=== PATIENT | male | born 1940 | race Caucasian/White ===

== ENCOUNTER → 2017-02-01 | Outpatient (CLI) | payer OTHER ==
[~2017-02-01] MED LIST: ADVIN25050; ALBU1NEB10 INH; ALBUAER2 INH; ASPCH81X PO; COEN1CAP37 PO; CRS/10 PO; FOLI1TAB7 PO; LPR25 PO; NITR0.4S UT; THIA100T13 PO
[2017-02-01 18:17] LABS: BASO % 0.4 %; BASO ABS # 0.02 K/uL (0-0.2); COMPLETE YES; EOS % 2.8 %; HEMATOCRIT 40.3 % (42-52); IG% 0.4 %; LYMPH % 30.8 %; LYMPH ABS # 1.75 K/uL (1.2-3.4); MEAN CELL VOLUME 92.6 fL (80-100); MEAN CORPUSCULAR HEMOGLOBIN 31.5 pg (25-34); MEAN PLATELET VOLUME 9.6 fL (7.4-10.4); MONO % 10.2 %; NEUT % 55.4 %; PLATELET COUNT 172 K/uL (130-400); RED BLOOD COUNT 4.35 M/uL (4.7-6.1); WHITE BLOOD COUNT 5.68 K/uL (4.8-10.8)
--- NOTE | 2017-03-04 06:59 | CODING QUERY NO DIAGNOSIS ---
TREATMENT RENDERED WITHOUT A DIAGNOSIS Dr. Capellan, To promote full compliance with coding requirements relating to patient care, physician participation is requested in all cases of metal spray operator uncertainty. Please assist us with providing a diagnosis/symptom for the test(s) below: A diagnosis/symptom was not documented on your Order. A valid diagnosis/symptom is required to bill all insurances. Please remember that we are unable to code a diagnosis of rule out, probable, possible, questionable, or suspected. Tests that require a diagnosis: * CBC W/AUTO DIFF DIAGNOSIS: * SED-RATE DIAGNOSIS: * URIC ACID DIAGNOSIS: DATE OF SERVICE: 02/01/17 Provider Signature: Date: Thank you Ez Iniguez [facility] Information Management Once completed, please kindly fax back to [phone] For questions please call [phone]
== END | disposition home or self-care (01) ==
LOC: C.LAB 17:52
PROVIDERS: ATTEND Podiatrist Foot & Ankle Surgery
DX: M79.661 Pain in right lower leg (principal); M10.071 Idiopathic gout, right ankle and foot; M19.071 Primary osteoarthritis, right ankle and foot; M24.871 Other specific joint derangements of right ankle, not elsewhere classified; M76.899 Other specified enthesopathies of unspecified lower limb, excluding foot

== ENCOUNTER → 2017-04-06 | Outpatient (CLI) | payer OTHER ==
[2017-04-06 12:15] LABS: BASO % 0.1 %; BASO ABS # 0.01 K/uL (0-0.2); COMPLETE YES; HEMATOCRIT 44.6 % (42-52); IG% 0.5 %; LYMPH % 12.3 %; LYMPH ABS # 1.29 K/uL (1.2-3.4); MEAN CELL VOLUME 95.7 fL (80-100); MEAN CORPUSCULAR HEMOGLOBIN 31.3 pg (25-34); MEAN CORPUSCULAR HGB CONC 32.7 g/dl (32-36); MEAN PLATELET VOLUME 10.6 fL (7.4-10.4); MONO % 4.8 %; NEUT % 82.3 %; PLATELET COUNT 181 K/uL (130-400); RED BLOOD COUNT 4.66 M/uL (4.7-6.1); WHITE BLOOD COUNT 10.47 K/uL (4.8-10.8)
[2017-04-06 12:49] LABS: ESTIMATED AVERAGE GLUCOSE 114 mg/dl; HA1C FLAG Normal (Normal)
[2017-04-06 13:15] LABS: ALT/SGPT 24 U/L (12-78); AST/SGOT 14 U/L (15-37); BLOOD UREA NITROGEN 20 mg/dl (7-18); BUN/CREATININE RATIO 16.8 (10-20); CALCIUM 9.1 mg/dl (8.5-10.1); CARBON DIOXIDE 26 mmol/L (21-32); CHLORIDE 109 mmol/L (98-107); GLUCOSE 153 mg/dl (70-99); POTASSIUM 4.4 mmol/L (3.5-5.1); SODIUM 144 mmol/L (136-145)
[2017-04-06 13:21] LABS: ALB/GLOB RATIO 1.4 (0.9-2); ALKALINE PHOSPHATASE 61 U/L (45-117); CHOLESTEROL 118 mg/dl (0-200); CHOLESTEROL/HDL RATIO 2.1; HDL CHOLESTEROL 55 mg/dl; LDL CHOLESTEROL CALCULATED 42 mg/dl; TRIGLYCERIDES 104 mg/dl (0-150); VERY LOW DENSITY LIPOPROT CALC 21 mg/dl
== END | disposition home or self-care (01) ==
LOC: C.LABBFT 08:29
PROVIDERS: ATTEND Internal Medicine
DX: R73.01 Impaired fasting glucose (principal); E78.5 Hyperlipidemia, unspecified; I25.10 Atherosclerotic heart disease of native coronary artery without angina pectoris; Z12.5 Encounter for screening for malignant neoplasm of prostate

== ENCOUNTER → 2017-10-07 | Outpatient (CLI) | payer OTHER ==
[~2017-10-07] MED LIST changes: -FOLI1TAB7 PO; +FOLI1TAB8 PO; -THIA100T13 PO; +THIA100T14 PO
[2017-10-07 12:18] LABS: BASO % 0.3 %; BASO ABS # 0.02 K/uL (0-0.2); COMPLETE YES; EOS % 2.3 %; HEMATOCRIT 41.9 % (42-52); IG% 0.5 %; LYMPH % 18.2 %; MEAN CELL VOLUME 94.4 fL (80-100); MEAN CORPUSCULAR HEMOGLOBIN 32.2 pg (25-34); MEAN CORPUSCULAR HGB CONC 34.1 g/dl (32-36); MEAN PLATELET VOLUME 10.4 fL (7.4-10.4); MONO % 7.4 %; NEUT % 71.3 %; PLATELET COUNT 154 K/uL (130-400); RED BLOOD COUNT 4.44 M/uL (4.7-6.1); WHITE BLOOD COUNT 6.61 K/uL (4.8-10.8)
[2017-10-07 12:28] LABS: ALT/SGPT 22 U/L (12-78); AST/SGOT 13 U/L (15-37); BLOOD UREA NITROGEN 14 mg/dl (7-18); BUN/CREATININE RATIO 11.6 (10-20); CALCIUM 8.5 mg/dl (8.5-10.1); CARBON DIOXIDE 27 mmol/L (21-32); CHLORIDE 109 mmol/L (98-107); CREATININE 1.25 mg/dl (0.60-1.40); GLUCOSE 100 mg/dl (70-99); POTASSIUM 4.2 mmol/L (3.5-5.1); SODIUM 141 mmol/L (136-145)
[2017-10-07 12:30] LABS: ALB/GLOB RATIO 1.3 (0.9-2); ALKALINE PHOSPHATASE 68 U/L (45-117); CHOLESTEROL 99 mg/dl (0-200); CHOLESTEROL/HDL RATIO 2.3; HDL CHOLESTEROL 44 mg/dl; LDL CHOLESTEROL CALCULATED 15 mg/dl; TRIGLYCERIDES 201 mg/dl (0-150); VERY LOW DENSITY LIPOPROT CALC 40 mg/dl
[2017-10-07 12:40] LABS: ESTIMATED AVERAGE GLUCOSE 103 mg/dl; HA1C FLAG Normal (Normal)
== END | disposition home or self-care (01) ==
LOC: C.LABBFT 08:45
PROVIDERS: ATTEND Internal Medicine
DX: I25.10 Atherosclerotic heart disease of native coronary artery without angina pectoris (principal); R73.01 Impaired fasting glucose

== ENCOUNTER 2023-08-10 09:16 | Inpatient (IN) ==
[2023-08-10] MEDS ORDERED: ACETAMINOPHEN 1,000 MG/100 ML VIAL IV STA (09:26)
[2023-08-10] MEDS ORDERED: ALBUT/IPRATROP 3MG/0.5MG NEB 3 ML VIAL NEB STA (09:26)
[2023-08-10] MEDS ORDERED: methylPREDNISolone 125 MG/2 ML VIAL IV STA (09:26)
[2023-08-10] MEDS ORDERED: CEFEPIME 2,000 MG/20 ML VIAL IV STA (09:26)
[2023-08-10] MEDS ORDERED: SODIUM CHLORIDE 0.9% 1,000 ML IV SCH (09:30)
--- NOTE | 2023-08-10 09:35 | Emergency Department Note ---
Impression & Plan Sepsis, Tachycardia, Hypoxia, Leukocytosis, Pneumonia, Elevated troponin, Rhinovirus infection ED Provider Note NAME: FIDEL RAMOS AGE: 83 SEX: M : 1940 ARRIVES VIA: Ambulance INFORMANT: [Patient][nursing] ED PROVIDER(S): [Jesús Diehl MD] CHIEF COMPLAINT: Shortness of breath HISTORY OF PRESENT ILLNESS: The patient is an 83-year-old male who has been sick with flulike symptoms and cough for about a week. The patient admits to some occasional vomiting. Sometimes he vomits from coughing, sometimes he vomits without cough. The patient has felt short of breath and has at times had some chest pain. He does have COPD and has a nebulizer and inhaler that he is using. He is using Tylenol for fever. The patient states that he keeps getting worse and thus, he went to his doctor's office today. His O2 saturation was in the mid 80s, he does not typically wear oxygen. He was sent by ambulance for evaluation. The patient denies sick contacts. He is not sure if he has ever had pneumonia. PMHx/PSHx/Social Hx: See Below PHYSICAL EXAM: GENERAL: Patient is in no acute distress. HEENT: No acute trauma, normocephalic atraumatic, mucous membranes moist, no nasal congestion. NECK: No stridor, no adenopathy, no meningismus, trachea is midline. LUNGS: Clear to auscultation bilaterally, no wheeze, no rhonchi, breath sounds equal. HEART: Tachycardic, regular rhythm, no murmurs. ABDOMEN: Soft, nontender, no peritonitis. EXTREMITIES: No cyanosis, full range of motion of all the joints without pain or difficulty. NEUROLOGIC: Oriented x 3, no acute motor or sensory deficits, no focal weakness. Poor historian. SKIN: No jaundice, no diaphoresis. DIFFERENTIAL DIAGNOSIS: Bronchitis or pneumonia, viral illness, sepsis or bacteremia, anemia, electrolyte imbalance, exacerbation of COPD, among others. EMERGENCY DEPARTMENT PROCEDURES: MEDICAL DECISION MAKING: There is a mild leukocytosis, this would be consistent with infection. A mild anemia was seen. The patient carries a history of anemia. There is a normal platelet count. No coagulopathy. VBG does not show significant acidosis or CO2 retention. No electrolyte abnormality or renal failure. Alk phos was elevated, the total bilirubin was normal. Procalcitonin level was elevated making a bacterial infection more likely. ECG shows a sinus tachycardia, no obvious ischemia. Cardiac enzyme testing x1 is somewhat elevated. This troponin elevation could be secondary to cardiac injury or potentially just mismatch from his hypoxia. Respiratory bio fire was positive for rhinovirus. Chest x-ray does suggest a left base pneumonia. On exam, the patient was tachycardic, hypoxic and febrile. The patient was aggressively managed. He was given a DuoNeb, IV Solu-Medrol, 1.5 L of IV saline. He received IV cefepime as empiric antibiotic coverage. He was given IV Tylenol. Patient has improved since this treatment was provided. The patient does meet criteria for sepsis. The source for his sepsis would be the pneumonia. The patient requires a hospital stay. I spoke with the patient about his findings. The on-call hospitalist was consulted. Prior/Outside records/notes reviewed: Previous wellness visit note. ECG per my interpretation: Indication was shortness of breath. The ECG shows what appears to be a sinus tachycardia with PACs. The rate is 119. There is some nonspecific ST change. There is no ST elevation, no PVCs. The QTc is 469. Continuous Cardiac Monitoring per my interpretation: An order was placed for continuous cardiac monitoring. The monitor shows a rate of 129 with sinus tachycardia. Critical Care Note: I have personally spent 49 minutes of critical care time in the direct management of this patient. This includes bedside care, interpretation of diagnostic studies, and testing, discussion with consultants, patient, and family members, and other required patient management activities. This 49 minutes is in excess of all separately billable procedures. Imaging/x-ray results per my interpretation: Chest x-ray does show a left- sided pneumonia. Chronic Medical/Social conditions affecting care: COPD. Care/Management discussed with: Case management and the on-call hospitalist Level of care consideration(s): After review of the information above and other included data: --requires escalation of care to admission DISPOSITION: Admitted Past Med/Surg History Medical History Asthma stable Barretts esophagus CAD (coronary artery disease) stent to ramus intermedius (2010) Carotid artery disease JONY <50% stenosis, LICA 50-69% stenosis, cardio monitoring COPD (chronic obstructive pulmonary disease) Coronary artery disease Esophageal reflux Herpes simplex History of COVID-19 COVID + 10/04/20 (Rapid antigen [facility]), symptoms at time was only fatig ue which has since resolved History of GI bleed remote Hx of gout Hyperlipidemia Hypertension Myocardial Infarction 2010 Osteoarthritis Sepsis due to pneumonia Surgical History Fusion of spine Cervical History of ankle surgery R ankle 11/2020, repair due to fracture History of cardiac cath stent x1 (2010) History of cataract surgery R/L History of colonoscopy History of esophagogastroduodenoscopy (EGD) History of shoulder surgery Right History of tonsillectomy and adenoidectomy Family History Mother Gastric cancer Grandmother (Maternal) Cancer of unknown origin Grandfather Prostate cancer Other No family history of adverse response to anesthesia Denies family history of Ovarian cancer Myocardial infarction Breast cancer Colorectal cancer Social History Smoking Status: Former smoker Tobacco Type: Cigarettes Age Started Using Tobacco: 13; Age Quit Using Tobacco: 41; packs per day: 3.5; Second Hand Exposure: No; Do You Dip or Chew Tobacco: No; Hx Alcohol Use: Yes Alcohol type: beer Alcohol Intake Frequency: 4 or More x per/Week Alcohol Intake Frequency Comment: 4 beers per day Hx Substance Use: No Preferred Language: Dominican Visual Impairment: Limited Hearing Ability: Normal Pet Groomer Required: No Beliefs That Will Affect Care: None marital status: Current Living Situation: Alone current occupational status: retired 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 [place] Feels Safe at Home: Yes Childhood Exposure to Second-Hand Smoke: Yes Diet: regular caffeine: Yes Dental Care, Regularly: No Physical Activity Frequency: Daily Seatbelt Use: never Sunscreen Use: No Assistive Devices: Crutches Allergies Allergies Allergy/AdvReac Type Severity Reaction Status Date / Time tamsulosin AdvReac Verified 12/17/21 13:52 Home Meds Home Medications Medication Instructions Recorded Confirmed nitroglycerin 0.4 mg sublingual 0.4 mg sublingual UD PRN Chest 06/12/19 08/10/23 tablet Pain #30 tabs thiamine HCl (vitamin B1) 100 mg 100 mg PO QAM #30 tabs 06/12/19 08/10/23 tablet folic acid 1 mg tablet 1 mg PO QAM 04/03/20 08/10/23 cholecalciferol (vitamin D3) 25 1,000 mcg PO HS 11/22/20 08/10/23 mcg (1,000 unit) tablet (Vitamin D3) coQ10 (ubiquinol) 200 mg capsule 200 mg PO QAM 11/22/20 08/10/23 zinc sulfate 50 mg zinc (220 mg) 220 mg PO HS 11/22/20 08/10/23 tablet Eye Drops 1 dose OPR BID 11/25/20 08/10/23 amlodipine 2.5 mg tablet 2.5 mg PO DAILY 08/10/23 08/10/23 aspirin 81 mg tablet,delayed 81 mg PO DAILY 08/10/23 08/10/23 release Previous Rx's Medication Instructions Recorded ipratropium bromide 21 mcg (0.03 1 spray intranasal TID #30 mL 07/14/20 %) nasal spray ipratropium 20 mcg-albuterol 100 1 puff inhalation QID #3 grams 07/16/20 mcg/actuation mist for inhalation (Combivent Respimat) fluticasone 250 mcg-salmeterol 50 1 inh inhalation BID #60 ea 01/23/21 mcg/dose blistr powdr for inhalation (Advair Diskus) alfuzosin 10 mg tablet,extended 10 mg PO DAILY #90 tabs 09/29/21 release 24 hr albuterol sulfate 2.5 mg/3 mL 2.5 mg (3 mL) inhalation QID #180 10/12/21 (0.083 %) solution for nebulization mL metoprolol tartrate 25 mg tablet 25 mg PO BID #180 tabs 10/28/21 omeprazole 20 mg capsule,delayed 40 mg PO BID #360 caps 02/03/22 release mirabegron 50 mg tablet,extended 50 mg PO DAILY #90 tabs 03/02/22 release 24 hr (Myrbetriq) rosuvastatin 10 mg tablet (Crestor) 10 mg PO HS #90 tabs 06/29/22 Results & Data (ED) Vital Signs Vital Signs - 24 hr 08/10/23 09:24 08/10/23 09:26 08/10/23 09:26 Temperature 38.5 C H Temperature Source Oral Pulse Rate 129 H 138 H Pulse Rate [Apical] Pulse Rhythm Regular Pulse Rhythm [Apical] Pulse Strength Normal Pulse Strength [Apical] Respiratory Rate 26 H Respiratory Effort / Characteristics Labored Labored Respiratory Depth Shallow Shallow Respiratory Pattern Tachypnea Tachypnea Blood Pressure 155/76 H Blood Pressure [Right Arm] Blood Pressure Mean 102 Blood Pressure Mean [Right Arm] Blood Pressure Position Lying Pulse Oximetry 86 L Oxygen Delivery Method Room Air Room Air Oxygen Flow Rate Sepsis Recent Fever Within 48 Hours Yes Sepsis New/Unexplained Change in Mental Status No Sepsis Action Taken by Nursing Physician Notified Oxygen Flow Rate - Titration Pulse Oximetry Post Tiitration 08/10/23 09:26 08/10/23 09:26 08/10/23 09:29 Temperature Temperature Source Pulse Rate Pulse Rate [Apical] 138 H Pulse Rhythm Pulse Rhythm [Apical] Regular Pulse Strength Pulse Strength [Apical] Normal Respiratory Rate 26 H Respiratory Effort / Characteristics Labored Respiratory Depth Shallow Respiratory Pattern Tachypnea Blood Pressure Blood Pressure [Right Arm] 155/76 H Blood Pressure Mean Blood Pressure Mean [Right Arm] 102 Blood Pressure Position Pulse Oximetry 86 L 91 Oxygen Delivery Method Room Air Room Air Nasal Cannula Oxygen Flow Rate 4 Sepsis Recent Fever Within 48 Hours Sepsis New/Unexplained Change in Mental Status Sepsis Action Taken by Nursing Oxygen Flow Rate - Titration Pulse Oximetry Post Tiitration 08/10/23 09:40 08/10/23 09:30 08/10/23 10:00 Temperature Temperature Source Pulse Rate 117 H 106 H Pulse Rate [Apical] Pulse Rhythm Pulse Rhythm [Apical] Pulse Strength Pulse Strength [Apical] Respiratory Rate 20 20 Respiratory Effort / Characteristics Respiratory Depth Respiratory Pattern Blood Pressure 145/72 H 145/63 H Blood Pressure [Right Arm] Blood Pressure Mean 96 90 Blood Pressure Mean [Right Arm] Blood Pressure Position Pulse Oximetry 86 L 92 92 Oxygen Delivery Method Nasal Cannula Nasal Cannula Oxygen Flow Rate 0 4 4 Sepsis Recent Fever Within 48 Hours Sepsis New/Unexplained Change in Mental Status Sepsis Action Taken by Nursing Oxygen Flow Rate - Titration 4 Pulse Oximetry Post Tiitration 92 08/10/23 10:30 Temperature Temperature Source Pulse Rate 103 H Pulse Rate [Apical] Pulse Rhythm Pulse Rhythm [Apical] Pulse Strength Pulse Strength [Apical] Respiratory Rate 20 Respiratory Effort / Characteristics Respiratory Depth Respiratory Pattern Blood Pressure 130/58 L Blood Pressure [Right Arm] Blood Pressure Mean 82 Blood Pressure Mean [Right Arm] Blood Pressure Position Pulse Oximetry 93 Oxygen Delivery Method Nasal Cannula Oxygen Flow Rate 4 Sepsis Recent Fever Within 48 Hours Sepsis New/Unexplained Change in Mental Status Sepsis Action Taken by Nursing Oxygen Flow Rate - Titration Pulse Oximetry Post Tiitration Home Medications Current Medication List: was personally reviewed by me Laboratory Data Attestation: I reviewed the patient's lab results. 08/10/23 09:30 08/10/23 09:30 Lab Results 08/10/23 08/10/23 08/10/23 Range/Units 09:30 09:30 09:30 WBC 13.30 H (4.8-10.8) K/ul RBC 4.15 L (4.70-6.10) M/uL Hgb 12.7 L (14.0-18.0) g/dl Hct 38.4 L (42.0-52.0) % MCV 92.5 (80.0-100.0) fL MCH 30.6 (25.0-34.0) pg MCHC 33.1 (32.0-36.0) g/dL RDW Std Deviation 41.1 (36.4-46.3) fL RDW Coeff of Hiral 12.0 (11.5-14.5) % Plt Count 234 (130-400) K/uL MPV 9.9 (9.4-12.4) fL Immature Gran % (Auto) 1.3 % Neut % (Auto) 88.9 % Lymph % (Auto) 3.1 % Butler % (Auto) 6.2 % Eos % (Auto) 0.3 % Baso % (Auto) 0.2 % Neut # (Auto) 11.83 H (1.40-6.50) K/uL Lymph # (Auto) 0.41 L (1.20-3.40) K/uL Butler # (Auto) 0.82 H (0.11-0.59) K/uL Eos # (Auto) 0.04 (0.00-0.50) K/uL Baso # (Auto) 0.03 (0.00-0.20) K/uL Immature Gran # (Auto) 0.17 (0.01-0.20) K/uL PT 11.7 (9.0-12.0) Seconds INR 1.1 (0.9-1.1) APTT 27.6 (21.0-31.0) Seconds PTT Ratio 1.0 VBG pH (7.36-7.41) VBG pCO2 (38-50) mmHg VBG pO2 mmHg VBG HCO3 mmol/L VBG O2 Saturation % VBG Base Excess mEq/L Sodium 136 (136-145) mmol/L Potassium 4.0 (3.5-5.1) mmol/L Chloride 100 (98-107) mmol/L Carbon Dioxide 24 (21-32) mmol/L Anion Gap 12 H (3-11) BUN 16 (6-23) mg/dl Creatinine 1.25 (0.6-1.4) mg/dl Est Cr Clr Drug Dosing 46.1 ml/min Est GFR ( Amer) 61.8 ml/min Est GFR (Non-Af Amer) 53.3 ml/min BUN/Creatinine Ratio 12.8 (10-20) Glucose 118 H (70-99(Fasting)) mg/dl Lactate (0.4-2.0) mmol/L Calcium 9.8 (8.6-10.3) mg/dl Magnesium 2.2 (1.7-2.4) mg/dl Total Bilirubin 0.6 (0.2-1.0) mg/dl Direct Bilirubin 0.3 H (0-0.2) mg/dl AST 35 (13-39) U/L ALT 47 (7-52) U/L Alkaline Phosphatase 362 H (34-104) U/L Troponin I High Sens 33.1 H (0-20) pg/ml Total Protein 7.0 (6.0-8.3) gm/dl Albumin 3.7 (3.4-5.0) gm/dl Procalcitonin (0-0.5) ng/ml Adenovirus (PCR) (NotDetected) B. pertussis DNA (PCR) (NotDetected) B.parapertussis DNA PCR (NotDetected) C. pneumoniae DNA (PCR) (NotDetected) Coronavirus OC43 (PCR) (NotDetected) Coronavirus HKU1 (PCR) (NotDetected) Coronavirus 229E (PCR) (NotDetected) SARS-CoV-2 (PCR) (NotDetected) Coronavirus NL63 (PCR) (NotDetected) Human Metapneumovir PCR (NotDetected) Influenza Type A (PCR) (NotDetected) Influenza Type B (PCR) (NotDetected) M. pneumoniae (PCR) (NotDetected) Parainfluenza 1 (PCR) (NotDetected) Parainfluenza 2 (PCR) (NotDetected) Parainfluenza 3 (PCR) (NotDetected) Parainfluenza 4 (PCR) (NotDetected) RSV (PCR) (NotDetected) Entero/Rhino (PCR) (NotDetected) 08/10/23 08/10/23 08/10/23 Range/Units 09:30 09:42 09:42 WBC (4.8-10.8) K/ul RBC (4.70-6.10) M/uL Hgb (14.0-18.0) g/dl Hct (42.0-52.0) % MCV (80.0-100.0) fL MCH (25.0-34.0) pg MCHC (32.0-36.0) g/dL RDW Std Deviation (36.4-46.3) fL RDW Coeff of Hiral (11.5-14.5) % Plt Count (130-400) K/uL MPV (9.4-12.4) fL Immature Gran % (Auto) % Neut % (Auto) % Lymph % (Auto) % Butler % (Auto) % Eos % (Auto) % Baso % (Auto) % Neut # (Auto) (1.40-6.50) K/uL Lymph # (Auto) (1.20-3.40) K/uL Butler # (Auto) (0.11-0.59) K/uL Eos # (Auto) (0.00-0.50) K/uL Baso # (Auto) (0.00-0.20) K/uL Immature Gran # (Auto) (0.01-0.20) K/uL PT (9.0-12.0) Seconds INR (0.9-1.1) APTT (21.0-31.0) Seconds PTT Ratio VBG pH 7.43 H (7.36-7.41) VBG pCO2 38 (38-50) mmHg VBG pO2 29 mmHg VBG HCO3 25 mmol/L VBG O2 Saturation < 60.0 % VBG Base Excess 1.0 mEq/L Sodium (136-145) mmol/L Potassium (3.5-5.1) mmol/L Chloride (98-107) mmol/L Carbon Dioxide (21-32) mmol/L Anion Gap (3-11) BUN (6-23) mg/dl Creatinine (0.6-1.4) mg/dl Est Cr Clr Drug Dosing ml/min Est GFR ( Amer) ml/min Est GFR (Non-Af Amer) ml/min BUN/Creatinine Ratio (10-20) Glucose (70-99(Fasting)) mg/dl Lactate 1.6 (0.4-2.0) mmol/L Calcium (8.6-10.3) mg/dl Magnesium (1.7-2.4) mg/dl Total Bilirubin (0.2-1.0) mg/dl Direct Bilirubin (0-0.2) mg/dl AST (13-39) U/L ALT (7-52) U/L Alkaline Phosphatase (34-104) U/L Troponin I High Sens (0-20) pg/ml Total Protein (6.0-8.3) gm/dl Albumin (3.4-5.0) gm/dl Procalcitonin 0.60 H (0-0.5) ng/ml Adenovirus (PCR) (NotDetected) B. pertussis DNA (PCR) (NotDetected) B.parapertussis DNA PCR (NotDetected) C. pneumoniae DNA (PCR) (NotDetected) Coronavirus OC43 (PCR) (NotDetected) Coronavirus HKU1 (PCR) (NotDetected) Coronavirus 229E (PCR) (NotDetected) SARS-CoV-2 (PCR) (NotDetected) Coronavirus NL63 (PCR) (NotDetected) Human Metapneumovir PCR (NotDetected) Influenza Type A (PCR) (NotDetected) Influenza Type B (PCR) (NotDetected) M. pneumoniae (PCR) (NotDetected) Parainfluenza 1 (PCR) (NotDetected) Parainfluenza 2 (PCR) (NotDetected) Parainfluenza 3 (PCR) (NotDetected) Parainfluenza 4 (PCR) (NotDetected) RSV (PCR) (NotDetected) Entero/Rhino (PCR) (NotDetected) 08/10/23 Range/Units 09:57 WBC (4.8-10.8) K/ul RBC (4.70-6.10) M/uL Hgb (14.0-18.0) g/dl Hct (42.0-52.0) % MCV (80.0-100.0) fL MCH (25.0-34.0) pg MCHC (32.0-36.0) g/dL RDW Std Deviation (36.4-46.3) fL RDW Coeff of Hiral (11.5-14.5) % Plt Count (130-400) K/uL MPV (9.4-12.4) fL Immature Gran % (Auto) % Neut % (Auto) % Lymph % (Auto) % Butler % (Auto) % Eos % (Auto) % Baso % (Auto) % Neut # (Auto) (1.40-6.50) K/uL Lymph # (Auto) (1.20-3.40) K/uL Butler # (Auto) (0.11-0.59) K/uL Eos # (Auto) (0.00-0.50) K/uL Baso # (Auto) (0.00-0.20) K/uL Immature Gran # (Auto) (0.01-0.20) K/uL PT (9.0-12.0) Seconds INR (0.9-1.1) APTT (21.0-31.0) Seconds PTT Ratio VBG pH (7.36-7.41) VBG pCO2 (38-50) mmHg VBG pO2 mmHg VBG HCO3 mmol/L VBG O2 Saturation % VBG Base Excess mEq/L Sodium (136-145) mmol/L Potassium (3.5-5.1) mmol/L Chloride (98-107) mmol/L Carbon Dioxide (21-32) mmol/L Anion Gap (3-11) BUN (6-23) mg/dl Creatinine (0.6-1.4) mg/dl Est Cr Clr Drug Dosing ml/min Est GFR ( Amer) ml/min Est GFR (Non-Af Amer) ml/min BUN/Creatinine Ratio (10-20) Glucose (70-99(Fasting)) mg/dl Lactate (0.4-2.0) mmol/L Calcium (8.6-10.3) mg/dl Magnesium (1.7-2.4) mg/dl Total Bilirubin (0.2-1.0) mg/dl Direct Bilirubin (0-0.2) mg/dl AST (13-39) U/L ALT (7-52) U/L Alkaline Phosphatase (34-104) U/L Troponin I High Sens (0-20) pg/ml Total Protein (6.0-8.3) gm/dl Albumin (3.4-5.0) gm/dl Procalcitonin (0-0.5) ng/ml Adenovirus (PCR) Not Detected (NotDetected) B. pertussis DNA (PCR) Not Detected (NotDetected) B.parapertussis DNA PCR Not Detected (NotDetected) C. pneumoniae DNA (PCR) Not Detected (NotDetected) Coronavirus OC43 (PCR) Not Detected (NotDetected) Coronavirus HKU1 (PCR) Not Detected (NotDetected) Coronavirus 229E (PCR) Not Detected (NotDetected) SARS-CoV-2 (PCR) Not Detected (NotDetected) Coronavirus NL63 (PCR) Not Detected (NotDetected) Human Metapneumovir PCR Not Detected (NotDetected) Influenza Type A (PCR) Not Detected (NotDetected) Influenza Type B (PCR) Not Detected (NotDetected) M. pneumoniae (PCR) Not Detected (NotDetected) Parainfluenza 1 (PCR) Not Detected (NotDetected) Parainfluenza 2 (PCR) Not Detected (NotDetected) Parainfluenza 3 (PCR) Not Detected (NotDetected) Parainfluenza 4 (PCR) Not Detected (NotDetected) RSV (PCR) Not Detected (NotDetected) Entero/Rhino (PCR) DETECTED A* (NotDetected) Administered Medications Albuterol (Albut/Ipratrop 3mg/0.5mg Neb 3 Ml Vial) 3 ml NEB QIDR RESHMA; Protocol Stop: 09/09/23 10:59 Last Admin: 08/10/23 12:07 Dose: 3 ml Documented By: MORRIS Azithromycin 500 mg/ Dextrose 255 mls @ 127.5 mls/hr IV Q24H RESHMA Stop: 08/17/23 11:29 Last Admin: 08/10/23 12:27 Dose: 127.5 mls/hr Documented By: JEMMA Discontinued Medications Albuterol (Albut/Ipratrop 3mg/0.5mg Neb 3 Ml Vial) 3 ml NEB NOW STA; Protocol Stop: 08/10/23 09:27 Last Admin: 08/10/23 09:48 Dose: 3 ml Documented By: JEMMA Sodium Chloride (Nss) 1,000 mls @ 999 mls/hr IV .Q1H1M RESHMA Stop: 08/10/23 10:30 Last Infusion: 08/10/23 11:06 Dose: 0 mls/hr Documented By: Admin: 08/10/23 09:55 Dose: 999 mls/hr Documented By: JEMMA Cefepime HCl (Maxipime) 2,000 mg in 20 mls @ 5 mls/min IV NOW STA; Protocol Stop: 08/10/23 09:29 Last Admin: 08/10/23 10:20 Dose: 5 mls/min Documented By: JEMMA Acetaminophen (Ofirmev) 1,000 mg in 100 mls @ 400 mls/hr IV NOW STA Stop: 08/10/23 09:40 Last Infusion: 08/10/23 10:37 Dose: 0 mls/hr Documented By: Admin: 08/10/23 09:54 Dose: 400 mls/hr Documented By: JEMMA Sodium Chloride (Nss) 500 mls @ 999 mls/hr IV .Q31M ONE Stop: 08/10/23 10:47 Last Infusion: 08/10/23 12:18 Dose: 0 mls/hr Documented By: Admin: 08/10/23 10:49 Dose: 999 mls/hr Documented By: JEMMA Methylprednisolone (Methylprednisolone 125 Mg/2 Ml Vial) 60 mg IV NOW STA Stop: 08/10/23 09:27 Last Admin: 08/10/23 09:54 Dose: 60 mg Documented By: JEMMA Imaging Data Radiologist's Impression: Chest X-Ray 08/10/23 09:26 XR chest 1V portable HISTORY: 83 years-old Male Sepsis acute sepsis COMPARISON: 04/03/2020 TECHNIQUE: AP view of the chest FINDINGS: Cardiac silhouette is enlarged. Mild interstitial coarsening of the lung bases. No pneumothorax, pleural effusion or overt pulmonary edema. Degenerative changes of the shoulders and spine. Surgical clips within the neck soft tissues. Cervical spinal fusion hardware. IMPRESSION: Mild interstitial coarsening of the lung bases, left greater than right has progressed from prior. Findings likely represent atelectasis versus scarring. A mild nonspecific pneumonitis could appear similarly. ACT 112: Negative or not required by law. The above report was generated using voice recognition software. It may contain grammatical, syntax or spelling errors. Electronically signed by: Dougie Keenan M.D. 08/10/2023 9:56 AM Discharge Plan Visit Data Chief Complaint: Shortness of Breath/Dyspnea ED Provider: Jesús Diehl Discharge Problem: Sepsis, Tachycardia, Hypoxia, Leukocytosis, Pneumonia, Elevated troponin, Rhinovirus infection Patient Disposition: Admitted As Inpatient Condition: Fair Discharge Instructions Interventions: ED Discharge Assessment Last Done: 08/10/23 11:58
[2023-08-10 09:52] LABS: HCO3 VBG 25 mmol/L; Oxygen Saturation VBG < 60.0 %; PCO2 VBG 38 mmHg (38-50); PO2 VBG 29 mmHg; pH VBG 7.43 (7.36-7.41)
--- NOTE | 2023-08-10 09:57 | XRay Report ---
XR chest 1V portable HISTORY: 83 years-old Male Sepsis acute sepsis COMPARISON: 04/03/2020 TECHNIQUE: AP view of the chest FINDINGS: Cardiac silhouette is enlarged. Mild interstitial coarsening of the lung bases. No pneumothorax, pleu ral effusion or overt pulmonary edema. Degenerative changes of the shoulders and spine. Surgical clip s within the neck soft tissues. Cervical spinal fusion hardware. IMPRESSION: Mild interstitial coarsening of the lung bases, left greater than right has progressed fr om prior. Findings likely represent atelectasis versus scarring. A mild nonspecific pneumonitis could appear similarly. ACT 112: Negative or not required by law. The above report was generated using voice recognition software. It may contain grammatical, syntax o r spelling errors. Electronically signed by: Dougie Keenan M.D. 08/10/2023 9:56 AM
[2023-08-10 10:05] LABS: Basophils # (auto) 0.03 K/uL (0.00-0.20); Basophils % (auto) 0.2 %; Eosinophils # (auto) 0.04 K/uL (0.00-0.50); Eosinophils % (auto) 0.3 %; Hematocrit (blood only) 38.4 % (42.0-52.0); Hemoglobin 12.7 g/dl (14.0-18.0); Immature Granulocytes # (auto) 0.17 K/uL (0.01-0.20); Immature Granulocytes % (auto) 1.3 %; Lymphocytes # (auto) 0.41 K/uL (1.20-3.40); Lymphocytes % (auto) 3.1 %; Mean Corpuscular Hemoglobin 30.6 pg (25.0-34.0); Mean Corpuscular Hgb Conc 33.1 g/dL (32.0-36.0); Mean Corpuscular Volume 92.5 fL (80.0-100.0); Mean Platelet Volume 9.9 fL (9.4-12.4); Monocytes # (auto) 0.82 K/uL (0.11-0.59); Monocytes % (auto) 6.2 %; Neutrophils # (auto) 11.83 K/uL (1.40-6.50); Neutrophils % (auto) 88.9 %; Platelet Count 234 K/uL (130-400); RDW Standard Deviation 41.1 fL (36.4-46.3); Red Blood Count 4.15 M/uL (4.70-6.10)
[2023-08-10 10:15] LABS: Albumin Level 3.7 gm/dl (3.4-5.0); BUN Creatinine Ratio 12.8 (10-20); Bilirubin Direct 0.3 mg/dl (0-0.2); Bilirubin,Total 0.6 mg/dl (0.2-1.0); Calcium 9.8 mg/dl (8.6-10.3); Creatinine Clr Calc Pharmacy 46.1 ml/min; Est GFR (African American) 61.8 ml/min; Est GFR (Non-African American) 53.3 ml/min; Magnesium 2.2 mg/dl (1.7-2.4)
[2023-08-10] MEDS ORDERED: SODIUM CHLORIDE 0.9% 500 ML IV ONE (10:17)
[2023-08-10 10:21] LABS: Troponin I High Sensitivity 33.1 pg/ml (0-20)
[2023-08-10 10:45] LABS: INR 1.1 (0.9-1.1); Partial Thromboplastin Time 27.6 Seconds (21.0-31.0); Prothrombin Time 11.7 Seconds (9.0-12.0)
[2023-08-10] MEDS ORDERED: MAGNESIUM HYDROXIDE SUSP 30 ML UDC PO PRN (10:47)
[2023-08-10] MEDS ORDERED: ONDANSETRON INJ 2 MG/ML 2 ML VIAL IV PRN (10:47)
[2023-08-10] MEDS ORDERED: ALUMINUM/MAGNESIUM SUSP 30 ML UDC PO PRN (10:47)
[2023-08-10] MEDS ORDERED: ACETAMINOPHEN 325 MG TAB PO PRN (10:47)
[2023-08-10] MEDS ORDERED: POLYETHYLENE (MIRALAX) 17 GM PACK PO PRN (10:47)
--- NOTE | 2023-08-10 10:53 | History & Physical Report ---
Date of Service August 10, 2023 Assessment & Plan (1) Sepsis due to pneumonia: (2) Hypertension: (3) CAD (coronary artery disease): (4) COPD (chronic obstructive pulmonary disease): Plan Mr. Ballesteros is an 83 year old male with a PMH that includes: COPD ( no supplemental O2 use), HTN, CAD, HLD, HLD and alcohol use; that presents to the ED with SOB and persistent productive cough and fevers, along with feeling weaker than usual that have been occurring over the past week. He went to [facility] this morning and was hypoxic and advised to come to the ED. CXR indicates left sided PNA and he would meet sepsis criteria as he was initially tachycardic and tachypnic. Upon arrival, he received Solumedrol, 1 LNSB, and Cefepime. Leukocytosis; 13.30, lactate normal 1.6, Initial Troponin 33.1; suspect ischemic demand rather than ACS. Ultimately, 83 year old male with history of COPD presents with SOB and PNA, meeting sepsis criteria. Will treat with IV Ceftriaxone + Azithromycin and adjust based on sputum and blood culture results; Supportive treatment with O2 and goal to wean O2 prior to discharge with Mucinex, Tessalon Pearles, and flutter valve. Will add AWSS protocol due to alcohol use for possible withdrawl effects. Sepsis Pneumonia: Acute uncontrolled 4LNC SpO2 90% CXR: Mild interstitial coarsening of the lung bases, left greater than right has progressed from prior. Findings likely represent atelectasis versus scarring. Leukocytosis: WBC 13.30 Lactate normal 1.6 Initial Troponin 33.1; will trend x1 do not suspect ACS rather ischemic demand VBG compensated Procalcitonin 0.60 Biofire pending Received 1LNSB in ED Solumedrol 60 mg x 1 given in ED Cefepime given in ED; adjust to Ceftriaxone + Azithromycin and adjust further based on sputum and blood cultures Add Mucinex PO BID, Tessalon Pearles PRN and Flutter Valve. COPD: chronic stable Takes Fluticasone, Atrovent and Albuterol No supplemental O2 at baseline HTN: chronic stable Takes Metoprolol and Amlodipine; continue HLD: Chronic stable takes Rosuvastatin; continue denies muscle cramps Last Lipid panel 07/01/23: LDL 40, HDL 56, TG 151 CAD: Chronic Stable 2010: Stent to JONY Takes Baby ASA; continue Initial Troponin 33.1; will trend x1 do not suspect ACS rather ischemic demand Qtc normal on ECG CKD: Chronic stable Baseline Creatinine 1.2; today 1.25 Alcohol use: chronic stable Reports drinking three beers per day and a shot of whiskey when he is not feeling well. Takes Thiamine and Folic Acid; continue Add AWSS scale for Ativan PRN; no gabapentin necessary for now Not tremulous on examination GERD: chronic stable Takes omeprazole; continue Disposition: PCP: Dr. Pabon Code Status: Full Code VTE Prophylaxis: Lovenox SQ I spent a total of 88 minutes coordinating, documenting, and providing care for this patient excluding time spent in the performance of separately billed services. All of the aforementioned completed while collaborating with the assigned attending physician for a full treatment plan. Please see their addendum for further details. History of Present Illness Chief Complaint: Shortness of Breath Primary Care Provider: Robert Pabon MD Mr. Ballesteros is an 83 year old male with a PMH that includes: COPD ( no supplemental O2 use), HTN, CAD, HLD, HLD and alcohol use; that presents to the ED with SOB and persistent productive cough and fevers, along with feeling weaker than usual that have been occurring over the past week. He went to [facility] this morning and was hypoxic and advised to come to the ED. CXR indicates left sided PNA and he would meet sepsis criteria as he was initially tachycardic and tachypnic. Upon arrival, he received Solumedrol, 1 LNSB, and Cefepime. Leukocytosis; 13.30, lactate normal 1.6, Initial Troponin 33.1; suspect ischemic demand rather than ACS. Pt denies tobacco use or recreational drug use. Reports drinking three beers per day and a shot of whiskey when he is not feeling well. 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 Pt denies DECKER, dizziness, chest pain, palpitations, abdominal pain, tenderness, recent falls or trauma. Pt lying on his left side upon examination and was not in any apparent distress. He was AAOx3 and able to answer questions appropriately. He did say that he was feeling 'wiped out'. Ultimately, 83 year old male with history of COPD presents with SOB and PNA, meeting sepsis criteria. Will treat with IV Ceftriaxone + Azithromycin and adjust based on sputum and blood culture results; Supportive treatment with O2 and goal to wean O2 prior to discharge with Mucinex, Tessalon Pearles, and flutter valve. Patient will be admitted for further evaluation and management. Please see A/P for further details. Allergies Allergy/AdvReac Type Severity Reaction Status Date / Time tamsulosin AdvReac Verified 12/17/21 13:52 Home Medications Medication Instructions Recorded Confirmed Type nitroglycerin 0.4 mg sublingual 0.4 mg sublingual UD PRN Chest 06/12/19 08/10/23 History tablet Pain #30 tabs thiamine HCl (vitamin B1) 100 mg 100 mg PO QAM #30 tabs 06/12/19 08/10/23 History tablet folic acid 1 mg tablet 1 mg PO QAM 04/03/20 08/10/23 History ipratropium bromide 21 mcg (0.03 1 spray intranasal TID #30 mL 07/14/20 08/10/23 Rx %) nasal spray ipratropium 20 mcg-albuterol 100 1 puff inhalation QID #3 grams 07/16/20 08/10/23 Rx mcg/actuation mist for inhalation (Combivent Respimat) cholecalciferol (vitamin D3) 25 1,000 mcg PO HS 11/22/20 08/10/23 History mcg (1,000 unit) tablet (Vitamin D3) coQ10 (ubiquinol) 200 mg capsule 200 mg PO QAM 11/22/20 08/10/23 History zinc sulfate 50 mg zinc (220 mg) 220 mg PO HS 11/22/20 08/10/23 History tablet Eye Drops 1 dose OPR BID 11/25/20 08/10/23 History fluticasone 250 mcg-salmeterol 50 1 inh inhalation BID #60 ea 01/23/21 08/10/23 Rx mcg/dose blistr powdr for inhalation (Advair Diskus) alfuzosin 10 mg tablet,extended 10 mg PO DAILY #90 tabs 09/29/21 08/10/23 Rx release 24 hr albuterol sulfate 2.5 mg/3 mL 2.5 mg (3 mL) inhalation QID #180 10/12/21 08/10/23 Rx (0.083 %) solution for nebulization mL metoprolol tartrate 25 mg tablet 25 mg PO BID #180 tabs 10/28/21 08/10/23 Rx omeprazole 20 mg capsule,delayed 40 mg PO BID #360 caps 02/03/22 08/10/23 Rx release mirabegron 50 mg tablet,extended 50 mg PO DAILY #90 tabs 03/02/22 08/10/23 Rx release 24 hr (Myrbetriq) rosuvastatin 10 mg tablet (Crestor) 10 mg PO HS #90 tabs 06/29/22 08/10/23 Rx amlodipine 2.5 mg tablet 2.5 mg PO DAILY 08/10/23 08/10/23 History aspirin 81 mg tablet,delayed 81 mg PO DAILY 08/10/23 08/10/23 History release Past Med/Surg History Medical History Asthma stable Barretts esophagus CAD (coronary artery disease) stent to ramus intermedius (2010) Carotid artery disease JNOY <50% stenosis, LICA 50-69% stenosis, cardio monitoring COPD (chronic obstructive pulmonary disease) Coronary artery disease Esophageal reflux Herpes simplex History of COVID-19 COVID + 10/04/20 (Rapid antigen [facility]), symptoms at time was only fatigue which has since resolved History of GI bleed remote Hx of gout Hyperlipidemia Hypertension Myocardial Infarction 2010 Osteoarthritis Sepsis due to pneumonia Surgical History Fusion of spine Cervical History of ankle surgery R ankle 11/2020, repair due to fracture History of cardiac cath stent x1 (2010) History of cataract surgery R/L History of colonoscopy History of esophagogastroduodenoscopy (EGD) History of shoulder surgery Right History of tonsillectomy and adenoidectomy Family History Mother Gastric cancer Grandmother (Maternal) Cancer of unknown origin Grandfather Prostate cancer Other No family history of adverse response to anesthesia Denies family history of Ovarian cancer Myocardial infarction Breast cancer Colorectal cancer Social History Smoking Status: Former smoker Tobacco Type: Cigarettes Age Started Using Tobacco: 13; Age Quit Using Tobacco: 41; packs per day: 3.5; Second Hand Exposure: No; Do You Dip or Chew Tobacco: No; Hx Alcohol Use: Yes Alcohol type: beer Alcohol Intake Frequency: 4 or More x per/Week Alcohol Intake Frequency Comment: 4 beers per day Hx Substance Use: No Preferred Language: [place] Visual Impairment: Limited Hearing Ability: Normal Systems Administrator Required: No Beliefs That Will Affect Care: None marital status: Current Living Situation: Alone current occupational status: retired 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 Stern's physical examination for further findings Results & Data Results & Data Vital Signs (Past 12 Hours) Vital Signs Temp Pulse Pulse Resp BP BP Pulse Ox 08/10/23 10:47 37.4 C 08/10/23 10:30 103 H 20 130/58 L 93 08/10/23 10:00 106 H 20 145/63 H 92 08/10/23 09:30 117 H 20 145/72 H 92 08/10/23 09:40 86 L 08/10/23 09:29 91 08/10/23 09:26 138 H 26 H 155/76 H 86 L 08/10/23 09:26 08/10/23 09:26 38.5 C H 138 H 26 H 155/76 H 86 L 08/10/23 09:26 08/10/23 09:24 129 H O2 Del Method O2 Flow Rate 08/10/23 10:47 08/10/23 10:30 Nasal Cannula 4 08/10/23 10:00 Nasal Cannula 4 08/10/23 09:30 Nasal Cannula 4 08/10/23 09:40 0 08/10/23 09:29 Nasal Cannula 4 08/10/23 09:26 Room Air 08/10/23 09:26 Room Air 08/10/23 09:26 Room Air 08/10/23 09:26 Room Air 08/10/23 09:24 Laboratory Results Short CBC 08/10/23 Range/Units 09:30 WBC 13.30 H (4.8-10.8) K/ul Hgb 12.7 L (14.0-18.0) g/dl Hct 38.4 L (42.0-52.0) % Plt Count 234 (130-400) K/uL BMP 08/10/23 09:30 Sodium 136 Potassium 4.0 Chloride 100 Carbon Dioxide 24 BUN 16 Creatinine 1.25 Glucose 118 H Calcium 9.8 Liver Function 08/10/23 Range/Units 09:30 Total Bilirubin 0.6 (0.2-1.0) mg/dl Direct Bilirubin 0.3 H (0-0.2) mg/dl AST 35 (13-39) U/L ALT 47 (7-52) U/L Alkaline Phosphatase 362 H (34-104) U/L Albumin 3.7 (3.4-5.0) gm/dl Diagnostic Findings Chest X-Ray 08/10/23 09:26 XR chest 1V portable HISTORY: 83 years-old Male Sepsis acute sepsis COMPARISON: 04/03/2020 TECHNIQUE: AP view of the chest FINDINGS: Cardiac silhouette is enlarged. Mild interstitial coarsening of the lung bases. No pneumothorax, pleural effusion or overt pulmonary edema. Degenerative changes of the shoulders and spine. Surgical clips within the neck soft tissues. Cervical spinal fusion hardware. IMPRESSION: Mild interstitial coarsening of the lung bases, left greater than right has progressed from prior. Findings likely represent atelectasis versus scarring. A mild nonspecific pneumonitis could appear similarly. ACT 112: Negative or not required by law. The above report was generated using voice recognition software. It may contain grammatical, syntax or spelling errors. Electronically signed by: Dougie Keenan M.D. 08/10/2023 9:56 AM Code Status & VTE Plan VTE Prophylaxis Plan VTE Prophylaxis will be ordered: Yes Supervising Physician Co-Signing Physician Notes 83 year old man with a PMH that includes COPD/asthma without home oxygen use, HTN, CAD, HLD, HLD and alcohol use presents to ER with SOB and persistent productive cough for the past week. Also reported anorexia, nausea, vomiting, sore throat, chest congestion. Reports chest pain with cough On exam, General: Ill appearing man, in no distress Eyes: PERRL, conjunctivae normal, not pale, anicteric sclerae, EOM intact bilaterally ENMT: External ear and nose normal, oropharynx normal Respiratory: Normal respiratory effort, no respiratory distress, lungs clear to auscultation, no crackles. On nasal cannula Cardiovascular: Tachycardic, regular rhythm, S1 S2 Gastrointestinal (Abdomen): Abdomen is not distended, soft, non-tender to palpation, no guarding, no palpable hepatosplenomegaly, normal bowel sounds Musculoskeletal: No pedal edema Neurologic: Alert and oriented x 3, No focal weakness, sensation grossly intact Psychiatric: Euthymic affect Sepsis Met SIRS criteria with fever, tachycardia, tachypnea, leukocytosis Pneumonia Got cefepime in ER Will do ceftriaxone and azithromycin Trop is mildly elevated. Likely demand ischemia. Trend Wean oxygen as tolerated Antitussives Reports daily alcohol use. [facility] protocol
[2023-08-10 11:02] LABS: Adenovirus PCR Not Detected (NotDetected); Bordetella parapertussis PCR Not Detected (NotDetected); Bordetella pertussis PCR Not Detected (NotDetected); Chlamydia pneumoniae PCR Not Detected (NotDetected); Coronavirus 229E PCR Not Detected (NotDetected); Coronavirus CoV-2 (COVID19)PCR Not Detected (NotDetected); Coronavirus HKU1 PCR Not Detected (NotDetected); Coronavirus NL63 PCR Not Detected (NotDetected); Coronavirus OC43PCR Not Detected (NotDetected); Human Metapneumovirus PCR Not Detected (NotDetected); Influenza A PCR Not Detected (NotDetected); Influenza B PCR Not Detected (NotDetected); Mycoplasma pneumoniae PCR Not Detected (NotDetected); Parainfluenza Virus 1 PCR Not Detected (NotDetected); Parainfluenza Virus 2 PCR Not Detected (NotDetected); Parainfluenza Virus 3 PCR Not Detected (NotDetected); Parainfluenza Virus 4 PCR Not Detected (NotDetected); Respiratory Syncytial VirusPCR Not Detected (NotDetected)
[2023-08-10 11:26] LABS: Rhinovirus/Enterovirus PCR DETECTED (NotDetected)
[2023-08-10] MEDS ORDERED: LORazepam 2 MG/1 ML VIAL IV PRN (11:43)
[2023-08-10] MEDS ORDERED: ARTIFICIAL TEARS OP PRN (11:51)
[2023-08-10] MEDS: ALBUT/IPRATROP 3MG/0.5MG NEB 3 ML VIAL NEB SCH ×3 (12:07→19:25)
[2023-08-10 12:17] LABS: Magnesium 2.1 mg/dl (1.7-2.4)
[2023-08-10] MEDS: AZITHROMYCIN 500 MG in DEXTROSE 5% 250 ML IV SCH (12:27)
[2023-08-10 12:28] LABS: Troponin I High Sensitivity 31.7 pg/ml (0-20)
[2023-08-10] MEDS ORDERED: IPRATROPIUM BROMIDE/ALBUTEROL respimat INH INH SCH (13:00)
[2023-08-10] MEDS ORDERED: Ipratropium HFA Inhaler (Combivent Respimat P&T Subs) INH SCH (15:00)
[2023-08-10] MEDS ORDERED: Albuterol HFA 8 GM Inhaler (Combivent Respimat P&T Subs) INH SCH (15:00)
[2023-08-10 15:13] LABS: Appearance Urine Clear (Clear); Bacteria Urine Automated Negative (Negative); Bilirubin Urine Negative (Negative); Blood Urine Negative (Negative); Color Urine Yellow; Glucose Urine UA Negative (Negative); Ketones Urine 2+ (Negative); Leukocyte Esterase Urine Negative (Negative); Nitrite Urine Negative (Negative); Protein Urine 1+ (Negative); RBC Urine Automated 0-4 /hpf (0-4); Specific Gravity Urine 1.017 (1.000-1.030); Urobilinogen Urine Negative (Negative)
[2023-08-10] MEDS ORDERED: cefTRIAXone SODIUM 2,000 MG in DEXTROSE 5 % MINI-B 50 ML IV SCH (17:00)
[2023-08-10] MEDS: PANTOprazole 40 MG TAB PO SCH (20:51)
[2023-08-10] MEDS: CHOLECALCIFEROL 1,000 UNITS 25 MCG TAB PO SCH (20:51)
[2023-08-10] MEDS: IPRATROPIUM BROMIDE NASAL SPRAY 0.06% 15ML NAE SCH ×2 (20:54→21:44)
[2023-08-10] MEDS ORDERED: GABAPENTIN 600 MG TAB PO ONE (21:23)
[2023-08-10] MEDS ORDERED: GABAPENTIN 1200MG ALCOHOL WITHDRAWAL LOAD PO STA (21:23)
[2023-08-10] MEDS ORDERED: SODIUM CHLORIDE 0.9% 500 ML IV SCH (21:30)
[2023-08-10] MEDS ORDERED: PIPER/TAZO 4.5g in D5W MINI-B 100 ML IV ONE (21:45)
[2023-08-10] MEDS ORDERED: METOPROLOL TARTRATE 1 MG/ML VIAL IV STA (21:50)
[2023-08-10] MEDS: guaiFENesin 600 MG TABCR PO SCH (21:56)
[2023-08-10] MEDS: METOPROLOL TARTRATE 25 MG TAB PO SCH (21:57)
[2023-08-10] MEDS: SODIUM CHLORIDE 0.9% 1,000 ML IV SCH (22:12)
[2023-08-10] MEDS ORDERED: Heparin IV Adult Wt-Based Low-Dose *NO* Bolus Protocol IV SCH (22:30)
[2023-08-10] MEDS ORDERED: HEPARIN SODIUM/DEXTROSE 25,000 UNITS/500 ML BAG IV SCH (22:45)
[2023-08-11] MEDS: ZINC SULFATE 220 MG CAPSULE PO SCH ×2 (00:24→20:44)
[2023-08-11] MEDS: ROSUVASTATIN CALCIUM 10 MG TAB PO SCH ×2 (00:24→20:44)
[2023-08-11] MEDS ORDERED: PIPERACILLIN/TAZOBACTAM 4.5 GM in DEXTROSE 5% MINI-B 100 ML IV SCH (04:00)
[2023-08-11] MEDS ORDERED: PIPERACILLIN/TAZOBACTAM 4.5 GM/100ML D5W IV ONE (04:48)
[2023-08-11] MEDS: GABAPENTIN 600 MG TAB PO SCH ×2 (05:12→12:26)
[2023-08-11 06:40] LABS: Hematocrit (blood only) 31.7 % (42.0-52.0); Hemoglobin 10.4 g/dl (14.0-18.0); Mean Corpuscular Hemoglobin 30.5 pg (25.0-34.0); Mean Corpuscular Hgb Conc 32.8 g/dL (32.0-36.0); Platelet Count 209 K/uL (130-400); RDW Standard Deviation 41.3 fL (36.4-46.3); Red Blood Count 3.41 M/uL (4.70-6.10); White Blood Count 10.94 K/ul (4.8-10.8)
[2023-08-11 06:59] LABS: Albumin Globulin Ratio 1.2 (0.9-2); Albumin Level 3.1 gm/dl (3.4-5.0); BUN Creatinine Ratio 18.8 (10-20); Bilirubin,Total 0.3 mg/dl (0.2-1.0); Calcium 8.6 mg/dl (8.6-10.3); Creatinine Clr Calc Pharmacy 51.5 ml/min; Est GFR (African American) 70.5 ml/min; Est GFR (Non-African American) 60.8 ml/min; Globulin 2.6 gm/dl (2.5-4.0); Potassium 4.3 mmol/L (3.5-5.1); Total Protein 5.7 gm/dl (6.0-8.3)
[2023-08-11 07:09] LABS: Partial Thromboplastin Ratio 1.1; Partial Thromboplastin Time 29.7 Seconds (21.0-31.0)
[2023-08-11] MEDS: IPRATROPIUM BROMIDE NEB SOLN 0.02% 2.5 ML VIAL INH SCH ×4 (08:28→20:21)
[2023-08-11] MEDS: LEVALBUTEROL 1.25 MG/3 ML NEB NEB SCH ×4 (08:28→20:21)
[2023-08-11] MEDS ORDERED: HEPARIN SOD (PORCINE) 1000 UNIT/ML ONE (08:34)
[2023-08-11] MEDS: PANTOprazole 40 MG TAB PO SCH ×2 (08:40→20:44)
[2023-08-11] MEDS: ASPIRIN 81 MG ECTAB PO SCH (08:40)
[2023-08-11] MEDS: guaiFENesin 600 MG TABCR PO SCH ×2 (08:41→20:44)
[2023-08-11] MEDS: FOLIC ACID 1 MG TAB PO SCH (08:41)
[2023-08-11] MEDS: METOPROLOL TARTRATE 25 MG TAB PO SCH ×3 (08:41→20:45)
[2023-08-11] MEDS: TAMSULOSIN HCL 0.4 MG CAP PO SCH (08:42)
[2023-08-11] MEDS: IPRATROPIUM BROMIDE NASAL SPRAY 0.06% 15ML NAE SCH ×3 (08:42→20:44)
[2023-08-11] MEDS: THIAMINE HCL 100 MG TAB PO SCH (08:42)
[2023-08-11] MEDS ORDERED: FLUTICASONE/VILANTEROL 200/25MCG 14 PUFFS/INHALER INH SCH (09:00)
[2023-08-11] MEDS ORDERED: amLODIPine BESYLATE 5 MG TAB PO SCH (09:00)
[2023-08-11] MEDS ORDERED: XOPENEX/ATROVENT 1.25mg/0.5MG NEB COMBO NEB SCH (09:00)
[2023-08-11] MEDS ORDERED: ENOXAPARIN INJ 40 MG/0.4 ML SYR SQ SCH (09:00)
[2023-08-11] MEDS: SODIUM CHLORIDE 0.9% 1,000 ML IV SCH (09:41)
--- NOTE | 2023-08-11 09:43 | Cardiology Consultation ---
Date of Consultation August 11, 2023 Assessment & Plan (1) Atrial fibrillation with rapid ventricular response: (2) Sepsis due to pneumonia: (3) Rhinovirus infection: Plan 83-year-old male with a past medical history of coronary artery disease and chronic stable angina pectoris presents with a week of progressive respiratory symptoms and is positive for enterovirus/rhinovirus with possible superimposed bacterial pneumonia. New onset atrial fibrillation first observed on telemetry 08/10/2023 at 20: 55. Patient has been started on an unfractionated heparin infusion for stroke prophylaxis. He received a single dose of IV metoprolol 5 mg overnight last night but his rates remain elevated. Blood pressure on the lower side, most recent measurement 116/62. Cautiously add IV diltiazem and 5 mg/h without bolus. Admit Toprol tartrate 12.5 mg twice daily. Echocardiogram has been completed and will be reviewed. History of Present Illness Attending Physician: Silver Live MD History of Present Illness Mr Ballesteros is an 83 year old male seen in cardiology consultation per the request of Dr Truong for the evaluation of atrial fibrillation with rapid ventricular response. Patient seen in the emergency department, room B2 , as a telemetry overflow patient. He describes 1 week of cold symptoms with runny nose, cough, fatigue, and progr essive shortness of breath. His respiratory panel was positive for enterovirus/rhinovirus. Chest x-ray suggestive of possible pneumonitis. He was admitted to the hospital and placed on inhaled bronchodilators including Atrovent, Xopenex. Antibiotics initiated including Zosyn and azithromycin. Last evening he was noted to convert from sinus tachycardia to atrial fibrillation with rapid ventricular response at 20: 55 hours. Heparin was initiated. At the time my assessment, atrial fibrillation at 115 bpm noted at rest in bed. Pulse oximetry 92% requiring 5 L of supplemental oxygen. The patient follows with our cardiology practice, most recent outpatient visit had been on 06/30/2023 at which time stable cardiac signs and symptoms were noted. Outpatient problem list: 1. Coronary heart disease status post PCI in the setting of an acute STEMI October, receiving bare-metal stent to the distal circumflex, subsequent PCI/stent to the ramus intermedius in December, with residual 50% mid right coronary artery stenosis and history of stable class I-II angina 2. Hypertension 3. Dyslipidemia 4. Moderate left carotid stenosis, 50 to 69% by duplex performed in 2018, less than 50% stenosis in 2021, however heavily calcified plaque observed and therefore the degree of stenosis may be underestimated 5. Former cigarette smoker 6. Alcohol use, 4 beers per day Allergies Allergy/AdvReac Type Severity Reaction Status Date / Time tamsulosin AdvReac Verified 12/17/21 13:52 Home Medications Medication Instructions Recorded Confirmed Type nitroglycerin 0.4 mg sublingual 0.4 mg sublingual UD PRN Chest 06/12/19 08/10/23 History tablet Pain #30 tabs thiamine HCl (vitamin B1) 100 mg 100 mg PO QAM #30 tabs 06/12/19 08/10/23 History tablet folic acid 1 mg tablet 1 mg PO QAM 04/03/20 08/10/23 History ipratropium bromide 21 mcg (0.03 1 spray intranasal TID #30 mL 07/14/20 08/10/23 Rx %) nasal spray ipratropium 20 mcg-albuterol 100 1 puff inhalation QID #3 grams 07/16/20 08/10/23 Rx mcg/actuation mist for inhalation (Combivent Respimat) cholecalciferol (vitamin D3) 25 1,000 mcg PO HS 11/22/20 08/10/23 History mcg (1,000 unit) tablet (Vitamin D3) coQ10 (ubiquinol) 200 mg capsule 200 mg PO QAM 11/22/20 08/10/23 History zinc sulfate 50 mg zinc (220 mg) 220 mg PO HS 11/22/20 08/10/23 History tablet Eye Drops 1 dose OPR BID 11/25/20 08/10/23 History fluticasone 250 mcg-salmeterol 50 1 inh inhalation BID #60 ea 01/23/21 08/10/23 Rx mcg/dose blistr powdr for inhalation (Advair Diskus) alfuzosin 10 mg tablet,extended 10 mg PO DAILY #90 tabs 09/29/21 08/10/23 Rx release 24 hr albuterol sulfate 2.5 mg/3 mL 2.5 mg (3 mL) inhalation QID #180 10/12/21 08/10/23 Rx (0.083 %) solution for nebulization mL metoprolol tartrate 25 mg tablet 25 mg PO BID #180 tabs 10/28/21 08/10/23 Rx omeprazole 20 mg capsule,delayed 40 mg PO BID #360 caps 02/03/22 08/10/23 Rx release mirabegron 50 mg tablet,extended 50 mg PO DAILY #90 tabs 03/02/22 08/10/23 Rx release 24 hr (Myrbetriq) rosuvastatin 10 mg tablet (Crestor) 10 mg PO HS #90 tabs 06/29/22 08/10/23 Rx amlodipine 2.5 mg tablet 2.5 mg PO DAILY 08/10/23 08/10/23 History aspirin 81 mg tablet,delayed 81 mg PO DAILY 08/10/23 08/10/23 History release Patient History Medical History Asthma stable Barretts esophagus CAD (coronary artery disease) stent to ramus intermedius (2010) Carotid artery disease JONY <50% stenosis, LICA 50-69% stenosis, cardio monitoring COPD (chronic obstructive pulmonary disease) Coronary artery disease Esophageal reflux Herpes simplex History of COVID-19 COVID + 10/04/20 (Rapid antigen [facility]), symptoms at time was only fatigue which has since resolved History of GI bleed remote Hx of gout Hyperlipidemia Hypertension Myocardial Infarction 2010 Osteoarthritis Sepsis due to pneumonia Surgical History Fusion of spine Cervical History of ankle surgery R ankle 11/2020, repair due to fracture History of cardiac cath stent x1 (2010) History of cataract surgery R/L History of colonoscopy History of esophagogastroduodenoscopy (EGD) History of shoulder surgery Right History of tonsillectomy and adenoidectomy Family History Mother Gastric cancer Grandmother (Maternal) Cancer of unknown origin Grandfather Prostate cancer Other No family history of adverse response to anesthesia Denies family history of Ovarian cancer Myocardial infarction Breast cancer Colorectal cancer Social History Smoking Status: Former smoker Tobacco Type: Cigarettes Age Started Using Tobacco: 13; Age Quit Using Tobacco: 41; packs per day: 3.5; Second Hand Exposure: No; Do You Dip or Chew Tobacco: No; Hx Alcohol Use: Yes Alcohol type: beer Alcohol Intake Frequency: 4 or More x per/Week Alcohol Intake Frequency Comment: 4 beers per day Hx Substance Use: No Preferred Language: Pashto Communication Ability: Effective Visual Impairment: Limited Hearing Ability: Normal 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4 C 115 H 25 H 116/62 92 Nasal Cannula 5 08/10/23 10:47 08/11/23 08:33 08/11/23 08:33 08/11/23 05:30 08/11/23 08:33 08/11/23 08:33 08/11/23 08:33 Constitutional: + ill appearing Eyes: PERRL, conjunctivae normal, anicteric sclerae Respiratory: + cough Auscultation: + rhonchi; no crackles and no rales Cardiovascular: Rate/Rhythm: + tachycardic and + irregularly irregular Heart Sounds: no murmur Extremities: no edema Gastrointestinal (Abdomen): normal bowel sounds, soft, nontender, no hepatosplenomegaly Neurologic: PERRL, EOMI, accommodation nl, no face palsy, no dysarthria Results & Data Vital Signs (Past 12 Hours) Vital Signs Pulse Pulse Resp BP BP Pulse Ox Pulse Ox 08/11/23 08:33 115 H 25 H 92 08/11/23 07:11 112 H 08/11/23 03:00 88 22 123/66 93 08/11/23 05:30 96 H 24 116/62 93 08/11/23 05:00 90 08/11/23 04:00 88 L 08/11/23 03:59 94 H 08/10/23 23:12 94 08/10/23 22:21 115 H 133/78 08/10/23 21:58 151 H 133/75 O2 Del Method O2 Del Method O2 Flow Rate O2 Flow Rate 08/11/23 08:33 Nasal Cannula 5 10/26/23 07:11 08/11/23 03:00 Nasal Cannula 3.5 08/11/23 05:30 Oxymask 4 08/11/23 05:00 Oxymask 6 08/11/23 04:00 Nasal Cannula 3.5 08/11/23 03:59 08/10/23 23:12 Nasal Cannula 3.5 08/10/23 22:21 08/10/23 21:58 Laboratory Results Cardiac Enzymes 08/10/23 08/10/23 08/10/23 Range/Units 09:30 11:50 15:17 AST 35 (13-39) U/L Troponin I High Sens 33.1 H 31.7 H 31.2 H (0-20) pg/ml 08/11/23 Range/Units 06:10 AST 45 H (13-39) U/L Troponin I High Sens (0-20) pg/ml Coagulation 08/10/23 08/11/23 Range/Units 09:30 06:10 PT 11.7 (9.0-12.0) Seconds APTT 27.6 29.7 (21.0-31.0) Seconds CBC 08/10/23 08/11/23 Range/Units 09:30 06:10 WBC 13.30 H 10.94 H (4.8-10.8) K/ul RBC 4.15 L 3.41 L (4.70-6.10) M/uL Hgb 12.7 L 10.4 L (14.0-18.0) g/dl Hct 38.4 L 31.7 L (42.0-52.0) % Plt Count 234 209 (130-400) K/uL Neut # (Auto) 11.83 H (1.40-6.50) K/uL Lymph # (Auto) 0.41 L (1.20-3.40) K/uL [place] # (Auto) 0.82 H (0.11-0.59) K/uL Eos # (Auto) 0.04 (0.00-0.50) K/uL Baso # (Auto) 0.03 (0.00-0.20) K/uL Comprehensive Metabolic Panel 08/10/23 08/11/23 Range/Units 09:30 06:10 Sodium 136 140 (136-145) mmol/L Potassium 4.0 4.3 (3.5-5.1) mmol/L Chloride 100 109 H (98-107) mmol/L Carbon Dioxide 24 24 (21-32) mmol/L BUN 16 21 (6-23) mg/dl Creatinine 1.25 1.12 (0.6-1.4) mg/dl Glucose 118 H 146 H (70-99(Fasting)) mg/dl Calcium 9.8 8.6 (8.6-10.3) mg/dl Direct Bilirubin 0.3 H (0-0.2) mg/dl AST 35 45 H (13-39) U/L ALT 47 43 (7-52) U/L Alkaline Phosphatase 362 H 306 H (34-104) U/L Total Protein 7.0 5.7 L (6.0-8.3) gm/dl Albumin 3.7 3.1 L (3.4-5.0) gm/dl Intake and Output 08/10/23 08/11/23 08/11/23 22:59 06:59 14:59 Intake Total 550 / 3505 1100 / 3505 156.967 / 156.967 Output Total 800 / 1750 600 / 1750 Balance -250 / 1755 500 / 1755 156.967 / 156.967 Intake: IV 550 / 3505 1100 / 3505 156.967 / 156.967 Heparin Sodium/Dextrose 25,000 156.967 / 156.967 units In 500 ml @ 850 UNITS/HR 17 mls/hr IV .Q24H [facility] Rx#: [id number] Piperacillin/Tazobactam 4.5 gm 100 / 100 In Dextrose 5% Mini-B 100 ml @ 200 mls/hr IV NOW ONE Rx#: [id number] Sodium Chloride 0.9% 1,000 ml @ 1000 / 1000 100 mls/hr IV .Q10H [facility] Rx#: [id number] Sodium Chloride 0.9% 500 ml @ 500 / 500 500 mls/hr IV .Q1H [facility] Rx#: [id number] cefTRIAXone SODIUM 2,000 mg In 50 / 50 Dextrose 5 % Mini-B 50 ml @ 100 mls/hr IV Q24H [facility] Rx#: [id number] Output: Urine 800 / 1750 600 / 1750 Other: Weight 79.7 kg Weight Measurement Method Built in [facility] Diagnostic Findings EKG performed 08/10/2023 at 9:27 AM: Sinus tachycardia 119 bpm. EKG performed at 08/10/2023 at 2131: Atrial fibrillation at 151 bpm, no significant ST depression to suggest ischemia.
[2023-08-11] MEDS ORDERED: STAT IV Infusion **Titration per Protocol STA (09:45)
[2023-08-11] MEDS ORDERED: ENOXAPARIN 1 MG/KG SC SCH (10:00)
[2023-08-11] MEDS: FORMOTEROL 20 MCG/2 ML VIAL NEB SCH ×2 (10:41→20:20)
[2023-08-11] MEDS: VIBEGRON 75 MG TAB PO SCH (10:59)
[2023-08-11] MEDS: cefTRIAXone SODIUM 2,000 MG in DEXTROSE 5 % MINI-B 50 ML IV SCH (11:06)
[2023-08-11] MEDS: ENOXAPARIN 80 MG/0.8 ML SYR SQ SCH ×2 (11:18→20:43)
[2023-08-11] MEDS: dilTIAZem HCL 125 MG in DEXTROSE 5% 100 ML IV SCH (12:04)
[2023-08-11] MEDS: AZITHROMYCIN 500 MG in DEXTROSE 5% 250 ML IV SCH (12:15)
[2023-08-11] MEDS: BENZONATATE 100 MG CAPSULE PO PRN ×2 (12:25→23:19)
--- NOTE | 2023-08-11 15:03 | Hospitalist Progress Note ---
Date of Service August 11, 2023 Assessment & Plan (1) Sepsis due to pneumonia: (2) Hypertension: (3) CAD (coronary artery disease): (4) COPD (chronic obstructive pulmonary disease): Plan Mr. Ballesteros is an 83 year old male with a PMH that includes: COPD ( no supplemental O2 use), HTN, CAD, HLD, HLD and alcohol use; that presents to the ED with SOB and persistent productive cough and fevers, along with feeling weaker than usual that have been occurring over the past week. He went to outpatient appointment prior to admission and was hypoxic and advised to come to the ED. CXR indicates left sided PNA and he would meet sepsis criteria as he was initially tachycardic and tachypnic. Upon arrival, he received Solumedrol, 1 LNSB, and Cefepime. Leukocytosis; 13.30, lactate normal 1.6, Initial Troponin 33.1; suspect ischemic demand rather than ACS. Sepsis POA Pneumonia: Rhino virus infection Febrile with Tmax of 38.5 C. Requiring 6 L of oxygen CXR personally reviewed: Mild interstitial coarsening of the lung bases, left greater than right has progressed from prior. g. Leukocytosis present Lactate normal 1.6 VBG compensated Procalcitonin 0.60 Biofire positive for rhinovirus Continue on ceftriaxone and azithromycin; plan to treat for 7 days Supplemental oxygen as needed; wean down as tolerated to keep saturation around 92% A-fib with RVR Demand ischemia On the night of August 10, patient went into the A-fib with RVR EKG personally reviewed; atrial fibrillation with RVR; ventricular rate of 151 High sensitive troponin elevated to 31 Echocardiogram shows severely hypokinetic inferior and posterior burleson. EF of 55 to 60% Continue on Cardizem drip as per cardiology. Also on metoprolol On Lovenox for anticoagulation. COPD: chronic stable On budesonide and formoterol nebs. HTN: chronic stable Takes Metoprolol and Amlodipine; continue HLD: Chronic stable takes Rosuvastatin; continue denies muscle cramps Last Lipid panel 07/01/23: LDL 40, HDL 56, TG 151 CAD: Chronic Stable 2010: Stent to [facility] Takes Baby ASA; continue CKD: Chronic stable Avoid nephrotoxic agent. Alcohol use: chronic stable Reports drinking three beers per day and a shot of whiskey when he is not feeling well. Takes Thiamine and Folic Acid; continue Add AWSS scale for Ativan PRN Not tremulous on examination GERD: chronic stable Takes omeprazole; continue Disposition: PCP: Dr. Pabon Code Status: Full Code VTE Prophylaxis: Lovenox SQ Time spent evaluating patient, direct bedside care, chart review, placing orders, interpretation of diagnostic studies, discussion with consultants, patient, and family members, as well as other required patient management activities is 60 minutes Please note the above document was generated using voice recognition software. It may contain grammatical, syntax or spelling errors. Any formal questions or concerns about the content, text or information contained within the body of this dictation should be directly addressed to the provider for clarification Admission and Anticipated Discharge Date Admission Date: August 10, 2023 Subjective Patient seen and examined at bedside. He reports dry cough; reports tiredness and lethargy. Overnight, went into A-fib with RVR. Ventricular rate in a.m. around 100s Review of Systems Review of Systems: All systems reviewed & are unremarkable except as noted in Subjective Physical Exam Physical Exam: Constitutional: Alert orient x3; not in distress. Respiratory: Occasional crackles heard. Cardiovascular: Irregular, no murmur, no edema Vessels: no JVD or carotid bruit Chest: normal inspection of chest Abdomen: normal bowel sounds, soft, nontender, no hepatosplenomegaly Musculoskeletal: no cyanosis or clubbing, extremities motor strength 5/5 Skin: no rashes, warm and dry normal turgor Neurologic: PERRL, EOMI, accommodation nl, no face palsy, no dysarthria CN's II- XI intact bilaterally and moves all extremities Psychiatric: A+Ox3, euthymic affect Results & Data Results & Data Vital Signs (Past 12 Hours) Vital Signs Temp Pulse Pulse Resp BP BP Pulse Ox 08/11/23 14:44 80 16 95 08/11/23 13:50 08/11/23 13:43 90 08/11/23 12:45 105 H 93/53 L 100 08/11/23 10:20 36.9 C 94 H 16 117/68 94 08/11/23 12:59 95 H 119/73 08/11/23 12:11 08/11/23 11:03 20 94 08/11/23 08:33 115 H 25 H 92 08/11/23 07:11 112 H 08/11/23 03:00 88 22 123/66 93 08/11/23 05:30 96 H 24 116/62 93 08/11/23 05:00 90 08/11/23 04:00 88 L 08/11/23 03:59 94 H O2 Del Method O2 Flow Rate 08/11/23 14:44 Nasal Cannula 6 08/11/23 13:50 High Flow Nasal Cannula 6 08/11/23 13:43 08/11/23 12:45 08/11/23 10:20 08/11/23 12:59 08/11/23 12:11 High Flow Nasal Cannula 6 08/11/23 11:03 Nasal Cannula 5 08/11/23 08:33 Nasal Cannula 5 08/11/23 07:11 08/11/23 03:00 Nasal Cannula 3.5 08/11/23 05:30 Oxymask 4 08/11/23 05:00 Oxymask 6 08/11/23 04:00 Nasal Cannula 3.5 08/11/23 03:59 Laboratory Results Laboratory Results WBC 10.94 K/ul (4.8-10.8) H 08/11/23 06:10 RBC 3.41 M/uL (4.70-6.10) L 08/11/23 06:10 Hgb 10.4 g/dl (14.0-18.0) L 08/11/23 06:10 Hct 31.7 % (42.0-52.0) L 08/11/23 06:10 MCV 93.0 fL (80.0-100.0) 08/11/23 06:10 MCH 30.5 pg (25.0-34.0) 08/11/23 06:10 MCHC 32.8 g/dL (32.0-36.0) 08/11/23 06:10 RDW Std Deviation 41.3 fL (36.4-46.3) 08/11/23 06:10 RDW Coeff of Hiral 12.0 % (11.5-14.5) 08/11/23 06:10 Plt Count 209 K/uL (130-400) 08/11/23 06:10 MPV 10.0 fL (9.4-12.4) 08/11/23 06:10 Immature Gran % (Auto) 1.3 % 08/10/23 09:30 Neut % (Auto) 88.9 % 08/10/23 09:30 Lymph % (Auto) 3.1 % 08/10/23 09:30 [place] % (Auto) 6.2 % 08/10/23 09:30 Eos % (Auto) 0.3 % 08/10/23 09:30 Baso % (Auto) 0.2 % 08/10/23 09:30 Neut # (Auto) 11.83 K/uL (1.40-6.50) H 08/10/23 09:30 Lymph # (Auto) 0.41 K/uL (1.20-3.40) L 08/10/23 09:30 [place] # (Auto) 0.82 K/uL (0.11-0.59) H 08/10/23 09:30 Eos # (Auto) 0.04 K/uL (0.00-0.50) 08/10/23 09:30 Baso # (Auto) 0.03 K/uL (0.00-0.20) 08/10/23 09:30 Immature Gran # (Auto) 0.17 K/uL (0.01-0.20) 08/10/23 09:30 PT 11.7 Seconds (9.0-12.0) 08/10/23 09:30 INR 1.1 (0.9-1.1) 08/10/23 09:30 APTT 29.7 Seconds (21.0-31.0) 08/11/23 06:10 PTT Ratio 1.1 08/11/23 06:10 VBG pH 7.43 (7.36-7.41) H 08/10/23 09:42 VBG pCO2 38 mmHg (38-50) 08/10/23 09:42 VBG pO2 29 mmHg 08/10/23 09:42 VBG HCO3 25 mmol/L 08/10/23 09:42 VBG O2 Saturation < 60.0 % 08/10/23 09:42 VBG Base Excess 1.0 mEq/L 08/10/23 09:42 Sodium 140 mmol/L (136-145) 08/11/23 06:10 Potassium 4.3 mmol/L (3.5-5.1) 08/11/23 06:10 Chloride 109 mmol/L (98-107) H 08/11/23 06:10 Carbon Dioxide 24 mmol/L (21-32) 08/11/23 06:10 Anion Gap 7 (3-11) 08/11/23 06:10 BUN 21 mg/dl (6-23) 08/11/23 06:10 Creatinine 1.12 mg/dl (0.6-1.4) 08/11/23 06:10 Est Cr Clr Drug Dosing 51.5 ml/min 08/11/23 06:10 Est GFR ( Amer) 70.5 ml/min 08/11/23 06:10 Est GFR (Non-Af Amer) 60.8 ml/min 08/11/23 06:10 BUN/Creatinine Ratio 18.8 (10-20) 08/11/23 06:10 Glucose 146 mg/dl (70-99(Fasting)) H 08/11/23 06:10 Lactate 1.6 mmol/L (0.4-2.0) 08/10/23 09:42 Calcium 8.6 mg/dl (8.6-10.3) 08/11/23 06:10 Phosphorus 2.0 mg/dl (2.5-4.9) L 08/10/23 11:50 Magnesium 2.1 mg/dl (1.7-2.4) 08/10/23 11:50 Total Bilirubin 0.3 mg/dl (0.2-1.0) 08/11/23 06:10 Direct Bilirubin 0.3 mg/dl (0-0.2) H 08/10/23 09:30 AST 45 U/L (13-39) H 08/11/23 06:10 ALT 43 U/L (7-52) 08/11/23 06:10 Alkaline Phosphatase 306 U/L (34-104) H 08/11/23 06:10 Troponin I High Sens 31.2 pg/ml (0-20) H 08/10/23 15:17 Total Protein 5.7 gm/dl (6.0-8.3) L 08/11/23 06:10 Albumin 3.1 gm/dl (3.4-5.0) L 08/11/23 06:10 Globulin 2.6 gm/dl (2.5-4.0) 08/11/23 06:10 Albumin/Globulin Ratio 1.2 (0.9-2) 08/11/23 06:10 Vitamin B12 802 pg/ml (180-914) 08/11/23 06:10 Procalcitonin 0.60 ng/ml (0-0.5) H 08/10/23 09:30 Urine Color Yellow 08/10/23 14:22 Urine Appearance Clear (Clear) 08/10/23 14:22 Urine pH 6.0 (4.5-7.5) 08/10/23 14:22 Ur Specific [place] 1.017 (1.000-1.030) 08/10/23 14:22 Urine Protein 1+ (Negative) H 08/10/23 14:22 Urine Glucose (UA) Negative (Negative) 08/10/23 14: Urine Ketones 2+ (Negative) H 08/10/23 14:22 Urine Blood Negative (Negative) 08/10/23 14:22 Urine Nitrite Negative (Negative) 08/10/23 14:22 Urine Bilirubin Negative (Negative) 08/10/23 14:22 Urine Urobilinogen Negative (Negative) 08/10/23 14:22 Ur Leukocyte Esterase Negative (Negative) 08/10/23 14:22 Urine WBC (Auto) 1-5 /hpf (0-5) 08/10/23 14:22 Urine RBC (Auto) 0-4 /hpf (0-4) 08/10/23 14:22 U Hyaline Cast (Auto) 1-5 /lpf (0-5) 08/10/23 14:22 U Epithel Cells (Auto) 10-20 /lpf (0-5) H 08/10/23 14:22 Urine Bacteria (Auto) Negative (Negative) 08/10/23 14:22 Adenovirus (PCR) Not Detected (NotDetected) 08/10/23 09:57 B. pertussis DNA (PCR) Not Detected (NotDetected) 08/10/23 09:57 B.parapertussis DNA PCR Not Detected (NotDetected) 08/10/23 09:57 C. pneumoniae DNA (PCR) Not Detected (NotDetected) 08/10/23 09:57 Coronavirus OC43 (PCR) Not Detected (NotDetected) 08/10/23 09:57 Coronavirus HKU1 (PCR) Not Detected (NotDetected) 08/10/23 09:57 Coronavirus 229E (PCR) Not Detected (NotDetected) 08/10/23 09:57 SARS-CoV-2 (PCR) Not Detected (NotDetected) 08/10/23 09:57 Coronavirus NL63 (PCR) Not Detected (NotDetected) 08/10/23 09:57 Human Metapneumovir PCR Not Detected (NotDetected) 08/10/23 09:57 Influenza Type A (PCR) Not Detected (NotDetected) 08/10/23 09:57 Influenza Type B (PCR) Not Detected (NotDetected) 08/10/23 09:57 M. pneumoniae (PCR) Not Detected (NotDetected) 08/10/23 09:57 Parainfluenza 1 (PCR) Not Detected (NotDetected) 08/10/23 09:57 Parainfluenza 2 (PCR) Not Detected (NotDetected) 08/10/23 09:57 Parainfluenza 3 (PCR) Not Detected (NotDetected) 08/10/23 09:57 Parainfluenza 4 (PCR) Not Detected (NotDetected) 08/10/23 09:57 RSV (PCR) Not Detected (NotDetected) 08/10/23 09:57 Entero/Rhino (PCR) DETECTED (NotDetected) A* 08/10/23 09:57 Impressions Chest X-Ray 08/10/23 09:26 XR chest 1V portable HISTORY: 83 years-old Male Sepsis acute sepsis COMPARISON: 04/03/2020 TECHNIQUE: AP view of the chest FINDINGS: Cardiac silhouette is enlarged. Mild interstitial coarsening of the lung bases. No pneumothorax, pleural effusion or overt pulmonary edema. Degenerative changes of the shoulders and spine. Surgical clips within the neck soft tissues. Cervical spinal fusion hardware. IMPRESSION: Mild interstitial coarsening of the lung bases, left greater than right has progressed from prior. Findings likely represent atelectasis versus scarring. A mild nonspecific pneumonitis could appear similarly. ACT 112: Negative or not required by law. The above report was generated using voice recognition software. It may contain grammatical, syntax or spelling errors. Electronically signed by: Dougie Keenan M.D. 08/10/2023 9:56 AM
[2023-08-11] MEDS: BUDESONIDE 0.5 MG/2 ML VIAL (PULMICORT) NEB SCH (20:20)
[2023-08-11] MEDS: CHOLECALCIFEROL 1,000 UNITS 25 MCG TAB PO SCH (20:44)
[2023-08-11] MEDS ORDERED: GABAPENTIN 600 MG TAB PO SCH (22:00)
[2023-08-12] MEDS ORDERED: HYDROcodone/HOMATROPINE SYRUP 5MG/1.5MG 5ML UDP PO PRN (00:08)
--- NOTE | 2023-08-12 05:56 | Electrocardiogram Report ---
Test Reason : Blood Pressure : / mmHG Vent. Rate : 119 BPM Atrial Rate : 119 BPM P-R Int : 136 ms QRS Dur : 078 ms QT Int : 334 ms P-R-T Axes : 047 044 058 degrees QTc Int : 469 ms Poor data quality, interpretation may be adversely affected Sinus tachycardia with Premature atrial complexes Otherwise normal ECG When compared with ECG of 03-APR-2020 13:52, Premature atrial complexes are now Present Vent. rate has increased BY 62 BPM Confirmed by Camilo Kerr ([id number]) on 08/12/2023 5:55:40 AM Referred By: Confirmed By:Camilo Kerr
--- NOTE | 2023-08-12 07:13 | Ultrasound Report ---
US liver CLINICAL HISTORY: Elevated liver enzymes. COMPARISON STUDY: CT of the abdomen and pelvis June 27, 2019. FINDINGS: No hepatic lesions are identified. Caliber of the common bile duct is at the upper limits o f normal, measuring 7 mm. Gallbladder is mildly distended. There are no gallstones. Small amount of s ludge within the gallbladder is noted. No sonographic Griffith sign was elicited. Pancreatic body is no rmal. Head and tail are obscured. There is no right hydronephrosis. Moderate right renal cortical thi nning is incidentally noted. IMPRESSION: 1. No gallstones or biliary ductal dilatation. Small amount of sludge within the gallbladder. Mildly distended gallbladder. No sonographic evidence for acute cholecystitis. 2. Partially obscured pancreas. ACT 112: Negative or not required by law. Electronically signed by: Duglas Page M.D. 08/12/2023 7:12 AM
[2023-08-12] MEDS: BUDESONIDE 0.5 MG/2 ML VIAL (PULMICORT) NEB SCH ×2 (07:35→19:33)
[2023-08-12] MEDS: FORMOTEROL 20 MCG/2 ML VIAL NEB SCH ×2 (07:35→19:33)
[2023-08-12] MEDS: IPRATROPIUM BROMIDE NEB SOLN 0.02% 2.5 ML VIAL INH SCH ×4 (07:36→19:33)
[2023-08-12] MEDS: LEVALBUTEROL 1.25 MG/3 ML NEB NEB SCH ×4 (07:36→19:34)
[2023-08-12 08:57] LABS: Basophils # (auto) 0.03 K/uL (0.00-0.20); Basophils % (auto) 0.3 %; Eosinophils # (auto) 0.05 K/uL (0.00-0.50); Eosinophils % (auto) 0.4 %; Hematocrit (blood only) 37.3 % (42.0-52.0); Immature Granulocytes # (auto) 0.35 K/uL (0.01-0.20); Lymphocytes # (auto) 0.95 K/uL (1.20-3.40); Lymphocytes % (auto) 8.2 %; Mean Corpuscular Hemoglobin 30.5 pg (25.0-34.0); Mean Corpuscular Hgb Conc 32.2 g/dL (32.0-36.0); Mean Corpuscular Volume 94.7 fL (80.0-100.0); Mean Platelet Volume 9.6 fL (9.4-12.4); Monocytes # (auto) 0.75 K/uL (0.11-0.59); Monocytes % (auto) 6.5 %; Neutrophils # (auto) 9.41 K/uL (1.40-6.50); Neutrophils % (auto) 81.6 %; Platelet Count 279 K/uL (130-400); RDW Coefficient of Variation 12.2 % (11.5-14.5); Red Blood Count 3.94 M/uL (4.70-6.10); White Blood Count 11.54 K/ul (4.8-10.8)
[2023-08-12 09:07] LABS: BUN Creatinine Ratio 21.6 (10-20); Calcium 8.9 mg/dl (8.6-10.3); Creatinine Clr Calc Pharmacy 52.2 ml/min; Est GFR (African American) 71.3 ml/min; Est GFR (Non-African American) 61.5 ml/min; Potassium 3.8 mmol/L (3.5-5.1)
[2023-08-12] MEDS: guaiFENesin 600 MG TABCR PO SCH ×2 (09:34→20:47)
[2023-08-12] MEDS: ASPIRIN 81 MG ECTAB PO SCH (09:34)
[2023-08-12] MEDS: PANTOprazole 40 MG TAB PO SCH ×2 (09:34→20:47)
[2023-08-12] MEDS: ENOXAPARIN 80 MG/0.8 ML SYR SQ SCH ×2 (09:34→22:43)
[2023-08-12] MEDS: THIAMINE HCL 100 MG TAB PO SCH (09:35)
[2023-08-12] MEDS: IPRATROPIUM BROMIDE NASAL SPRAY 0.06% 15ML NAE SCH (09:35)
[2023-08-12] MEDS: VIBEGRON 75 MG TAB PO SCH (09:35)
[2023-08-12] MEDS: METOPROLOL TARTRATE 25 MG TAB PO SCH ×2 (09:35→20:47)
[2023-08-12] MEDS: TAMSULOSIN HCL 0.4 MG CAP PO SCH (09:35)
[2023-08-12] MEDS: FOLIC ACID 1 MG TAB PO SCH (09:35)
[2023-08-12] MEDS: cefTRIAXone SODIUM 2,000 MG in DEXTROSE 5 % MINI-B 50 ML IV SCH (09:36)
[2023-08-12] MEDS: BENZONATATE 100 MG CAPSULE PO PRN (09:48)
[2023-08-12] MEDS: SODIUM CHLOR 7% 4 ML NEB NEB SCH ×2 (09:57→19:33)
[2023-08-12] MEDS: dilTIAZem HCL 125 MG in DEXTROSE 5% 100 ML IV SCH ×2 (10:10→22:43)
[2023-08-12] MEDS: AZITHROMYCIN 500 MG in DEXTROSE 5% 250 ML IV SCH (11:44)
[2023-08-12] MEDS: methylPREDNISolone 40 MG in SYRINGE 0 ML IV SCH ×2 (12:20→20:48)
--- NOTE | 2023-08-12 12:20 | XRay Report ---
XR chest 1V portable CLINICAL HISTORY: Increasing oxygen requirement. COMPARISON STUDY: Chest CT March 12, 2015. Chest radiograph August 10, 2023. FINDINGS: There is no pneumothorax or pleural effusion. Cardiomegaly is unchanged. Bibasilar opacitie s have progressed. There is underlying emphysema. No evidence for pulmonary edema. Postoperative find ings within the spine and right lower neck are incidentally noted. Calcified granuloma within the rig ht upper lobe is incidentally noted. IMPRESSION: 1. Progression of bilateral lower lung airspace opacities suggestive of pneumonia. Radiographic follo w-up to ensure resolution is recommended. 2. Emphysema. ACT 112: Negative or not required by law. Electronically signed by: Duglas Page M.D. 08/12/2023 12:18 PM
[2023-08-12] MEDS: guaiFENesin/DEXTROM SYRUP 200MG/20MG 10ML UDC PO PRN ×2 (13:01→20:48)
--- NOTE | 2023-08-12 14:20 | Hospitalist Progress Note ---
Date of Service August 12, 2023 Assessment & Plan (1) Sepsis due to pneumonia: (2) Hypertension: (3) CAD (coronary artery disease): (4) COPD (chronic obstructive pulmonary disease): Plan Mr. Ballesteros is an 83 year old male with a PMH that includes: COPD ( no supplemental O2 use), HTN, CAD, HLD, HLD and alcohol use; that presents to the ED with SOB and persistent productive cough and fevers, along with feeling weaker than usual that have been occurring over the past week. He went to outpatient appointment prior to admission and was hypoxic and advised to come to the ED. CXR indicates left sided PNA and he would meet sepsis criteria as he was initially tachycardic and tachypnic. Upon arrival, he received Solumedrol, 1 LNSB, and Cefepime. Leukocytosis; 13.30, lactate normal 1.6, Initial Troponin 33.1; suspect ischemic demand rather than ACS. Sepsis POA Pneumonia: Rhino virus infection Febrile with Tmax of 38.5 C. Requiring 6 L of oxygen CXR personally reviewed: Mild interstitial coarsening of the lung bases, left greater than right has progressed from prior. Repeat CXR: increase in bilateral infiltrates at bases Leukocytosis present Lactate normal 1.6 VBG reviewed; compensated Procalcitonin 0.60 Biofire positive for rhinovirus Continue on ceftriaxone and azithromycin; plan to treat for 7 days Supplemental oxygen as needed; wean down as tolerated to keep saturation around 92% Obtain sputum culture A-fib with RVR Demand ischemia On the night of August 10, patient went into the A-fib with RVR EKG personally reviewed; atrial fibrillation with RVR; ventricular rate of 151 High sensitive troponin elevated to 31 Echocardiogram shows severely hypokinetic inferior and posterior burleson. EF of 55 to 60% Continue on Cardizem drip as per cardiology. Also on metoprolol On Lovenox for anticoagulation. COPD: chronic stable On budesonide and formoterol nebs. HTN: chronic stable Takes Metoprolol and Amlodipine; continue HLD: Chronic stable takes Rosuvastatin; continue denies muscle cramps Last Lipid panel 07/01/23: LDL 40, HDL 56, TG 151 CAD: Chronic Stable 2010: Stent to [facility]ON[facility] Takes Baby ASA; continue CKD: Chronic stable Avoid nephrotoxic agent. Alcohol use: chronic stable Reports drinking three beers per day and a shot of whiskey when he is not feeling well. Takes Thiamine and Folic Acid; continue Add AWSS scale for Ativan PRN Not tremulous on examination GERD: chronic stable Takes omeprazole; continue Disposition: PCP: Dr. Pabon Code Status: Full Code VTE Prophylaxis: Lovenox SQ Time spent evaluating patient, direct bedside care, chart review, placing orders, interpretation of diagnostic studies, discussion with consultants, patient, and family members, as well as other required patient management activities is 60 minutes Please note the above document was generated using voice recognition software. It may contain grammatical, syntax or spelling errors. Any formal questions or concerns about the content, text or information contained within the body of this dictation should be directly addressed to the provider for clarification Admission and Anticipated Discharge Date Admission Date: August 10, 2023 Subjective Patient seen and examined at bedside. He reports shortness of breath. Oxygen requirement is slightly increased to 8 L. Repeat chest x-ray ordered; increase in bilateral infiltrates Review of Systems Review of Systems: All systems reviewed & are unremarkable except as noted in Subjective Physical Exam Physical Exam: Constitutional: Alert orient x3; not in distress. Respiratory: Occasional crackles heard in bilateral lower bases. Cardiovascular: Irregular, no murmur, no edema Vessels: no JVD or carotid bruit Chest: normal inspection of chest Abdomen: normal bowel sounds, soft, nontender, no hepatosplenomegaly Musculoskeletal: no cyanosis or clubbing, extremities motor strength 5/5 Skin: no rashes, warm and dry normal turgor Neurologic: PERRL, EOMI, accommodation nl, no face palsy, no dysarthria CN's II- XI intact bilaterally and moves all extremities Psychiatric: A+Ox3, euthymic affect Results & Data Results & Data Vital Signs (Past 12 Hours) Vital Signs Temp Pulse Pulse Pulse Resp BP Pulse Ox 08/12/23 12:22 95 08/12/23 12:22 22 95 08/12/23 11:08 36.6 C 114 H 22 124/67 90 08/12/23 10:29 08/12/23 10:01 120 H 20 86 L 08/12/23 08:14 36.5 C 101 H 18 127/66 91 08/12/23 08:10 96 H 08/12/23 07:36 97 H 18 93 08/12/23 03:13 36.8 C 94 H 18 101/64 92 O2 Del Method O2 Flow Rate 08/12/23 12:22 High Flow Nasal Cannula 6 08/12/23 12:22 High Flow Nasal Cannula 8 08/12/23 11:08 Nasal Cannula 8 08/12/23 10:29 High Flow Nasal Cannula 6 08/12/23 10:01 Nasal Cannula 6 08/12/23 08:14 High Flow Nasal Cannula 6 08/12/23 08:10 08/12/23 07:36 Nasal Cannula 6 08/12/23 03:13 High Flow Nasal Cannula Laboratory Results Laboratory Results WBC 11.54 K/ul (4.8-10.8) H 08/12/23 08:31 RBC 3.94 M/uL (4.70-6.10) L 08/12/23 08:31 Hgb 12.0 g/dl (14.0-18.0) L 08/12/23 08:31 Hct 37.3 % (42.0-52.0) L 08/12/23 08:31 MCV 94.7 fL (80.0-100.0) 08/12/23 08:31 MCH 30.5 pg (25.0-34.0) 08/12/23 08:31 MCHC 32.2 g/dL (32.0-36.0) 08/12/23 08:31 RDW Std Deviation 43.0 fL (36.4-46.3) 08/12/23 08:31 RDW Coeff of Hiral 12.2 % (11.5-14.5) 08/12/23 08:31 Plt Count 279 K/uL (130-400) 08/12/23 08:31 MPV 9.6 fL (9.4-12.4) 08/12/23 08:31 Immature Gran % (Auto) 3.0 % 08/12/23 08:31 Neut % (Auto) 81.6 % 08/12/23 08:31 Lymph % (Auto) 8.2 % 08/12/23 08:31 [place] % (Auto) 6.5 % 08/12/23 08:31 Eos % (Auto) 0.4 % 08/12/23 08:31 Baso % (Auto) 0.3 % 08/12/23 08:31 Neut # (Auto) 9.41 K/uL (1.40-6.50) H 08/12/23 08:31 Lymph # (Auto) 0.95 K/uL (1.20-3.40) L 08/12/23 08:31 [place] # (Auto) 0.75 K/uL (0.11-0.59) H 08/12/23 08:31 Eos # (Auto) 0.05 K/uL (0.00-0.50) 08/12/23 08:31 Baso # (Auto) 0.03 K/uL (0.00-0.20) 08/12/23 08:31 Immature Gran # (Auto) 0.35 K/uL (0.01-0.20) H 08/12/23 08:31 PT 11.7 Seconds (9.0-12.0) 08/10/23 09:30 INR 1.1 (0.9-1.1) 08/10/23 09:30 APTT 29.7 Seconds (21.0-31.0) 08/11/23 06:10 PTT Ratio 1.1 08/11/23 06:10 VBG pH 7.43 (7.36-7.41) H 08/10/23 09:42 VBG pCO2 38 mmHg (38-50) 08/10/23 09:42 VBG pO2 29 mmHg 08/10/23 09:42 VBG HCO3 25 mmol/L 08/10/23 09:42 VBG O2 Saturation < 60.0 % 08/10/23 09:42 VBG Base Excess 1.0 mEq/L 08/10/23 09:42 Sodium 141 mmol/L (136-145) 08/12/23 08:31 Potassium 3.8 mmol/L (3.5-5.1) 08/12/23 08:31 Chloride 108 mmol/L (98-107) H 08/12/23 08:31 Carbon Dioxide 24 mmol/L (21-32) 08/12/23 08:31 Anion Gap 9 (3-11) 08/12/23 08:31 BUN 24 mg/dl (6-23) H 08/12/23 08:31 Creatinine 1.11 mg/dl (0.6-1.4) 08/12/23 08:31 Est Cr Clr Drug Dosing 52.2 ml/min 08/12/23 08:31 Est GFR ( Amer) 71.3 ml/min 08/12/23 08:31 Est GFR (Non-Af Amer) 61.5 ml/min 08/12/23 08:31 BUN/Creatinine Ratio 21.6 (10-20) H 08/12/23 08:31 Glucose 102 mg/dl (70-99(Fasting)) H 08/12/23 08:31 Lactate 1.6 mmol/L (0.4-2.0) 08/10/23 09:42 Calcium 8.9 mg/dl (8.6-10.3) 08/12/23 08:31 Phosphorus 2.0 mg/dl (2.5-4.9) L 08/10/23 11:50 Magnesium 2.1 mg/dl (1.7-2.4) 08/10/23 11:50 Total Bilirubin 0.3 mg/dl (0.2-1.0) 08/11/23 06:10 Direct Bilirubin 0.3 mg/dl (0-0.2) H 08/10/23 09:30 AST 45 U/L (13-39) H 08/11/23 06:10 ALT 43 U/L (7-52) 08/11/23 06:10 Alkaline Phosphatase 306 U/L (34-104) H 08/11/23 06:10 Troponin I High Sens 31.2 pg/ml (0-20) H 08/10/23 15:17 Total Protein 5.7 gm/dl (6.0-8.3) L 08/11/23 06:10 Albumin 3.1 gm/dl (3.4-5.0) L 08/11/23 06:10 Globulin 2.6 gm/dl (2.5-4.0) 08/11/23 06:10 Albumin/Globulin Ratio 1.2 (0.9-2) 08/11/23 06:10 Vitamin B12 802 pg/ml (180-914) 08/11/23 06:10 Procalcitonin 0.60 ng/ml (0-0.5) H 08/10/23 09:30 Urine Color Yellow 08/10/23 14:22 Urine Appearance Clear (Clear) 08/10/23 14:22 Urine pH 6.0 (4.5-7.5) 08/10/23 14:22 Ur Specific Vass 1.017 (1.000-1.030) 08/10/23 14:22 Urine Protein 1+ (Negative) H 08/10/23 14:22 Urine Glucose (UA) Negative (Negative) 08/10/23 14:22 Urine Ketones 2+ (Negative) H 08/10/23 14:22 Urine Blood Negative (Negative) 08/10/23 14:22 Urine Nitrite Negative (Negative) 08/10/23 14:22 Urine Bilirubin Negative (Negative) 08/10/23 14:22 Urine Urobilinogen Negative (Negative) 08/10/23 14:22 Ur Leukocyte Esterase Negative (Negative) 08/10/23 14:22 Urine WBC (Auto) 1-5 /hpf (0-5) 08/10/23 14:22 Urine RBC (Auto) 0-4 /hpf (0-4) 08/10/23 14:22 U Hyaline Cast (Auto) 1-5 /lpf (0-5) 08/10/23 14:22 U Epithel Cells (Auto) 10-20 /lpf (0-5) H 08/10/23 14:22 Urine Bacteria (Auto) Negative (Negative) 08/10/23 14:22 Nasal Screen MRSA (PCR) Negative (Negative) 08/12/23 11:47 Adenovirus (PCR) Not Detected (NotDetected) 08/10/23 09:57 B. pertussis DNA (PCR) Not Detected (NotDetected) 08/10/23 09:57 B.parapertussis DNA PCR Not Detected (NotDetected) 08/10/23 09:57 C. pneumoniae DNA (PCR) Not Detected (NotDetected) 08/10/23 09:57 Coronavirus OC43 (PCR) Not Detected (NotDetected) 08/10/23 09:57 Coronavirus HKU1 (PCR) Not Detected (NotDetected) 08/10/23 09:57 Coronavirus 229E (PCR) Not Detected (NotDetected) 08/10/23 09:57 SARS-CoV-2 (PCR) Not Detected (NotDetected) 08/10/23 09:57 Coronavirus NL63 (PCR) Not Detected (NotDetected) 08/10/23 09:57 Human Metapneumovir PCR Not Detected (NotDetected) 08/10/23 09:57 Influenza Type A (PCR) Not Detected (NotDetected) 08/10/23 09:57 Influenza Type B (PCR) Not Detected (NotDetected) 08/10/23 09:57 M. pneumoniae (PCR) Not Detected (NotDetected) 08/10/23 09:57 Parainfluenza 1 (PCR) Not Detected (NotDetected) 08/10/23 09:57 Parainfluenza 2 (PCR) Not Detected (NotDetected) 08/10/23 09:57 Parainfluenza 3 (PCR) Not Detected (NotDetected) 08/10/23 09:57 Parainfluenza 4 (PCR) Not Detected (NotDetected) 08/10/23 09:57 RSV (PCR) Not Detected (NotDetected) 08/10/23 09:57 Entero/Rhino (PCR) DETECTED (NotDetected) A* 08/10/23 09:57 Impressions Liver Ultrasound 08/11/23 12:55 US liver CLINICAL HISTORY: Elevated liver enzymes. COMPARISON STUDY: CT of the abdomen and pelvis June 27, 2019. FINDINGS: No hepatic lesions are identified. Caliber of the common bile duct is at the upper limits of normal, measuring 7 mm. Gallbladder is mildly distended. There are no gallstones. Small amount of sludge within the gallbladder is noted. No sonographic Griffith sign was elicited. Pancreatic body is normal. Head and tail are obscured. There is no right hydronephrosis. Moderate right renal cortical thinning is incidentally noted. IMPRESSION: 1. No gallstones or biliary ductal dilatation. Small amount of sludge within the gallbladder. Mildly distended gallbladder. No sonographic evidence for acute cholecystitis. 2. Partially obscured pancreas. ACT 112: Negative or not required by law. Electronically signed by: Duglas Page M.D. 08/12/2023 7:12 AM Chest X-Ray 08/12/23 11:25 XR chest 1V portable CLINICAL HISTORY: Increasing oxygen requirement. COMPARISON STUDY: Chest CT March 12, 2015. Chest radiograph August 10, 2023. FINDINGS: There is no pneumothorax or pleural effusion. Cardiomegaly is unchanged. Bibasilar opacities have progressed. There is underlying emphysema. No evidence for pulmonary edema. Postoperative findings within the spine and right lower neck are incidentally noted. Calcified granuloma within the right upper lobe is incidentally noted. IMPRESSION: 1. Progression of bilateral lower lung airspace opacities suggestive of pneumonia. Radiographic follow-up to ensure resolution is recommended. 2. Emphysema. ACT 112: Negative or not required by law. Electronically signed by: Duglas Page M.D. 08/12/2023 12:18 PM
--- NOTE | 2023-08-12 18:50 | Cardiology Progress Note ---
Date of Service August 12, 2023 Assessment & Plan (1) Atrial fibrillation with rapid ventricular response: (2) Sepsis due to pneumonia: (3) Rhinovirus infection: Plan 83-year-old male with a past medical history of coronary artery disease and chronic stable angina pectoris presents with a week of progressive respiratory symptoms and is positive for enterovirus/rhinovirus with possible superimposed bacterial pneumonia. New onset atrial fibrillation first observed on telemetry 08/10/2023 at 20: 55. Echocardiogram performed 08/11/2023 revealed inferior and posterior hypokinesis LVEF 55 to 60%, wall motion abnormalities unchanged compared to previous outpatient study dating back to 2013 Increase metoprolol to tartrate to 25 mg twice daily and work on weaning diltiazem. Anticipate heart rate will improve as respiratory status improves from viral respiratory tract infection with possible superimposed bacterial pneumonia. Patient has been transitioned to Lovenox for anticoagulation. Consider transitioning him to Eliquis. Based on his risk factors, he will likely need chronic anticoagulation. Continue aspirin given history of coronary artery disease. Admission and Anticipated Discharge Date Admission Date: August 10, 2023 Subjective Patient seen and examined. His daughter is at the bedside. Patient with ongoing oxygen requirement, coarse productive cough observed. Atrial fibrillation observed on telemetry with rates in the range of 96 to 105 bpm. Patient remains on IV diltiazem at 10 mg/hr. Physical Exam Constitutional: + ill appearing Eyes: PERRL, conjunctivae normal, anicteric sclerae Respiratory: + cough Auscultation: + rhonchi; no crackles and no rales Cardiovascular: Rate/Rhythm: + tachycardic and + irregularly irregular Heart Sounds: no murmur Extremities: no edema Gastrointestinal (Abdomen): normal bowel sounds, soft, nontender, no hepatosplenomegaly Neurologic: PERRL, EOMI, accommodation nl, no face palsy, no dysarthria Results & Data Vital Signs (Past 12 Hours) Vital Signs Temp Pulse Pulse Resp BP Pulse Ox O2 Del Method 08/12/23 15:48 88 08/12/23 15:29 36.7 C 90 21 115/65 93 Nasal Cannula 08/12/23 15:24 95 H 18 95 Nasal Cannula 08/12/23 12:22 95 High Flow Nasal Cannula 08/12/23 12:22 22 95 High Flow Nasal Cannula 08/12/23 11:08 36.6 C 114 H 22 124/67 90 Nasal Cannula 08/12/23 10:29 High Flow Nasal Cannula 08/12/23 10:01 120 H 20 86 L Nasal Cannula 08/12/23 08:14 36.5 C 101 H 18 127/66 91 High Flow Nasal Cannula 08/12/23 08:10 96 H 08/12/23 07:36 97 H 18 93 Nasal Cannula O2 Flow Rate 08/12/23 15:48 08/12/23 15:29 6 08/12/23 15:24 6 08/12/23 12:22 6 08/12/23 12:22 8 08/12/23 11:08 8 08/12/23 10:29 6 08/12/23 10:01 6 08/12/23 08:14 6 08/12/23 08:10 08/12/23 07:36 6
[2023-08-12] MEDS: ROSUVASTATIN CALCIUM 10 MG TAB PO SCH (20:46)
[2023-08-12] MEDS: CHOLECALCIFEROL 1,000 UNITS 25 MCG TAB PO SCH (20:47)
[2023-08-12] MEDS: ZINC SULFATE 220 MG CAPSULE PO SCH (20:47)
--- NOTE | 2023-08-12 20:47 | Electrocardiogram Report ---
Test Reason : Blood Pressure : / mmHG Vent. Rate : 151 BPM Atrial Rate : 000 BPM P-R Int : 000 ms QRS Dur : 084 ms QT Int : 302 ms P-R-T Axes : 000 023 034 degrees QTc Int : 478 ms Atrial fibrillation with rapid ventricular response Inferior-posterior infarct , age undetermined Nonspecific ST abnormality Abnormal ECG When compared with ECG of 10-AUG-2023 09:27, Atrial fibrillation has replaced Sinus rhythm ST now depressed in Anterior leads Confirmed by Camilo Kerr ([id number]) on 08/12/2023 8:47:05 PM Referred By: REFERRED SELF Confirmed By:Camilo Kerr
[2023-08-13] MEDS ORDERED: GABAPENTIN 600 MG TAB PO SCH
[2023-08-13] MEDS: methylPREDNISolone 40 MG in SYRINGE 0 ML IV SCH ×3 (03:46→20:21)
[2023-08-13 06:34] LABS: Basophils # (auto) 0.03 K/uL (0.00-0.20); Basophils % (auto) 0.3 %; Immature Granulocytes # (auto) 0.39 K/uL (0.01-0.20); Immature Granulocytes % (auto) 4.2 %; Lymphocytes # (auto) 0.55 K/uL (1.20-3.40); Lymphocytes % (auto) 5.9 %; Mean Corpuscular Hemoglobin 30.7 pg (25.0-34.0); Mean Corpuscular Hgb Conc 33.3 g/dL (32.0-36.0); Mean Corpuscular Volume 92.2 fL (80.0-100.0); Mean Platelet Volume 9.8 fL (9.4-12.4); Monocytes # (auto) 0.15 K/uL (0.11-0.59); Monocytes % (auto) 1.6 %; Neutrophils # (auto) 8.24 K/uL (1.40-6.50); Platelet Count 254 K/uL (130-400); RDW Standard Deviation 40.6 fL (36.4-46.3); Red Blood Count 3.58 M/uL (4.70-6.10); White Blood Count 9.36 K/ul (4.8-10.8)
[2023-08-13 07:00] LABS: BUN Creatinine Ratio 24.3 (10-20); Calcium 8.8 mg/dl (8.6-10.3); Creatinine Clr Calc Pharmacy 56.2 ml/min; Est GFR (Non-African American) 67.3 ml/min; Potassium 4.2 mmol/L (3.5-5.1)
[2023-08-13] MEDS: SODIUM CHLOR 7% 4 ML NEB NEB SCH ×2 (07:23→19:18)
[2023-08-13] MEDS: BUDESONIDE 0.5 MG/2 ML VIAL (PULMICORT) NEB SCH ×2 (07:23→19:18)
[2023-08-13] MEDS: FORMOTEROL 20 MCG/2 ML VIAL NEB SCH ×2 (07:34→19:18)
[2023-08-13] MEDS: LEVALBUTEROL 1.25 MG/3 ML NEB NEB SCH ×4 (07:34→19:20)
[2023-08-13] MEDS: IPRATROPIUM BROMIDE NEB SOLN 0.02% 2.5 ML VIAL INH SCH ×4 (07:34→19:20)
[2023-08-13] MEDS: ASPIRIN 81 MG ECTAB PO SCH (09:20)
[2023-08-13] MEDS: guaiFENesin 600 MG TABCR PO SCH ×2 (09:20→20:22)
[2023-08-13] MEDS: FOLIC ACID 1 MG TAB PO SCH (09:21)
[2023-08-13] MEDS: THIAMINE HCL 100 MG TAB PO SCH (09:21)
[2023-08-13] MEDS: METOPROLOL TARTRATE 25 MG TAB PO SCH ×3 (09:21→20:22)
[2023-08-13] MEDS: VIBEGRON 75 MG TAB PO SCH (09:21)
[2023-08-13] MEDS: PANTOprazole 40 MG TAB PO SCH ×2 (09:21→20:22)
[2023-08-13] MEDS: TAMSULOSIN HCL 0.4 MG CAP PO SCH (09:21)
[2023-08-13] MEDS: guaiFENesin/DEXTROM SYRUP 200MG/20MG 10ML UDC PO PRN ×2 (09:22→20:22)
[2023-08-13] MEDS: dilTIAZem HCL 125 MG in DEXTROSE 5% 100 ML IV SCH ×2 (10:42→22:46)
[2023-08-13] MEDS: ENOXAPARIN 80 MG/0.8 ML SYR SQ SCH ×2 (11:15→22:45)
[2023-08-13] MEDS: cefTRIAXone SODIUM 2,000 MG in DEXTROSE 5 % MINI-B 50 ML IV SCH (11:15)
--- NOTE | 2023-08-13 13:02 | Hospitalist Progress Note ---
Date of Service August 13, 2023 Assessment & Plan (1) Sepsis due to pneumonia: (2) Hypertension: (3) CAD (coronary artery disease): (4) COPD (chronic obstructive pulmonary disease): Plan Mr. Ballesteros is an 83 year old male with a PMH that includes: COPD ( no supplemental O2 use), HTN, CAD, HLD, HLD and alcohol use; that presents to the ED with SOB and persistent productive cough and fevers, along with feeling weaker than usual that have been occurring over the past week. He went to outpatient appointment prior to admission and was hypoxic and advised to come to the ED. CXR indicates left sided PNA and he would meet sepsis criteria as he was initially tachycardic and tachypnic. Upon arrival, he received Solumedrol, 1 LNSB, and Cefepime. Leukocytosis; 13.30, lactate normal 1.6, Initial Troponin 33.1; suspect ischemic demand rather than ACS. Sepsis POA Pneumonia: Rhino virus infection Acute hypoxic respiratory failure Febrile with Tmax of 38.5 C. Requiring 4-6 L of oxygen CXR personally reviewed: Mild interstitial coarsening of the lung bases, left greater than right has progressed from prior. Repeat CXR on August 12: increase in bilateral infiltrates at bases Leukocytosis present Lactate normal 1.6 VBG reviewed; compensated Procalcitonin 0.60 Biofire positive for rhinovirus Sputum culturelight normal ghada MRSA negative Continue on ceftriaxone .; plan to treat for 7 days. Patient completed 3 days of azithromycin Supplemental oxygen as needed; wean down as tolerated to keep saturation around 92% A-fib with RVR Demand ischemia On the night of August 10, patient went into the A-fib with RVR EKG personally reviewed; atrial fibrillation with RVR; ventricular rate of 151 High sensitive troponin elevated to 31 Echocardiogram shows severely hypokinetic inferior and posterior burleson. EF of 55 to 60% Continue on Cardizem drip as per cardiology. Also on metoprolol On Lovenox for anticoagulation. Suspected COPD exacerbation chronic stable On budesonide and formoterol nebs. [id number] DuoNebs On methylprednisolone; plan to treat for 5 days HTN: chronic stable Takes Metoprolol and Amlodipine; continue HLD: Chronic stable takes Rosuvastatin; continue denies muscle cramps Last Lipid panel 07/01/23: LDL 40, HDL 56, TG 151 CAD: Chronic Stable 2011: Stent to JONY Takes Baby ASA; continue CKD: Chronic stable Avoid nephrotoxic agent. Alcohol use: chronic stable Reports drinking three beers per day and a shot of whiskey when he is not feeling well. Takes Thiamine and Folic Acid; continue Add AWSS scale for Ativan PRN Not tremulous on examination GERD: chronic stable Takes omeprazole; continue Disposition: PCP: Dr. Pabon Code Status: Full Code VTE Prophylaxis: Lovenox SQ Time spent evaluating patient, direct bedside care, chart review, placing orders, interpretation of diagnostic studies, discussion with consultants, patient, and family members, as well as other required patient management activities is 60 minutes Please note the above document was generated using voice recognition software. It may contain grammatical, syntax or spelling errors. Any formal questions or concerns about the content, text or information contained within the body of this dictation should be directly addressed to the provider for clarification Admission and Anticipated Discharge Date Admission Date: August 10, 2023 Subjective Patient seen and examined at bedside. He reports she is slightly feeling better compared to previous days. Still requiring 4 to 6 L of oxygen by nasal cannula Telemetry shows atrial fibrillation Review of Systems Review of Systems: All systems reviewed & are unremarkable except as noted in Subjective Physical Exam Physical Exam: Constitutional: Alert orient x3; not in distress. Respiratory: Occasional crackles heard in bilateral lower bases. Cardiovascular: Irregular, no murmur, no edema Vessels: no JVD or carotid bruit Chest: normal inspection of chest Abdomen: normal bowel sounds, soft, nontender, no hepatosplenomegaly Musculoskeletal: no cyanosis or clubbing, extremities motor strength 5/5 Skin: no rashes, warm and dry normal turgor Neurologic: PERRL, EOMI, accommodation nl, no face palsy, no dysarthria CN's II- XI intact bilaterally and moves all extremities Psychiatric: A+Ox3, euthymic affect Results & Data Results & Data Vital Signs (Past 12 Hours) Vital Signs Temp Pulse Resp BP Pulse Ox Pulse Ox O2 Del Method 08/13/23 09:00 90 08/13/23 07:00 High Flow Nasal Cannula 08/13/23 11:10 36.4 C L 97 H 20 116/55 L 94 Nasal Cannula 08/13/23 11:04 98 H 18 92 Nasal Cannula 08/13/23 09:17 102 H 133/69 10/28/23 07:35 105 H 20 92 Nasal Cannula 08/13/23 07:19 36.7 C 118 H 22 137/67 91 Nasal Cannula 08/13/23 02:25 36.5 C 78 18 122/74 91 High Flow Nasal Cannula O2 Del Method O2 Flow Rate O2 Flow Rate 08/13/23 09:00 High Flow Nasal Cannula 6 08/13/23 07:00 6 08/13/23 11:10 4 08/13/23 11:04 6 08/13/23 09:17 08/13/23 07:35 6 08/13/23 07:19 6 08/13/23 02:25 Laboratory Results Laboratory Results WBC 9.36 K/ul (4.8-10.8) 08/13/23 05:36 RBC 3.58 M/uL (4.70-6.10) L 08/13/23 05:36 Hgb 11.0 g/dl (14.0-18.0) L 08/13/23 05:36 Hct 33.0 % (42.0-52.0) L 08/13/23 05:36 MCV 92.2 fL (80.0-100.0) 08/13/23 05:36 MCH 30.7 pg (25.0-34.0) 08/13/23 05:36 MCHC 33.3 g/dL (32.0-36.0) 08/13/23 05:36 RDW Std Deviation 40.6 fL (36.4-46.3) 08/13/23 05:36 RDW Coeff of Hiral 12.0 % (11.5-14.5) 08/13/23 05:36 Plt Count 254 K/uL (130-400) 08/13/23 05:36 MPV 9.8 fL (9.4-12.4) 08/13/23 05:36 Immature Gran % (Auto) 4.2 % 08/13/23 05:36 Neut % (Auto) 88.0 % 08/13/23 05:36 Lymph % (Auto) 5.9 % 08/13/23 05:36 [place] % (Auto) 1.6 % 08/13/23 05:36 Eos % (Auto) 0.0 % 08/13/23 05:36 Baso % (Auto) 0.3 % 08/13/23 05:36 Neut # (Auto) 8.24 K/uL (1.40-6.50) H 08/13/23 05:36 Lymph # (Auto) 0.55 K/uL (1.20-3.40) L 08/13/23 05:36 [place] # (Auto) 0.15 K/uL (0.11-0.59) 08/13/23 05:36 Eos # (Auto) 0.00 K/uL (0.00-0.50) 08/13/23 05:36 Baso # (Auto) 0.03 K/uL (0.00-0.20) 08/13/23 05:36 Immature Gran # (Auto) 0.39 K/uL (0.01-0.20) H 08/13/23 05:36 PT 11.7 Seconds (9.0-12.0) 08/10/23 09:30 INR 1.1 (0.9-1.1) 08/10/23 09:30 APTT 29.7 Seconds (21.0-31.0) 08/11/23 06:10 PTT Ratio 1.1 08/11/23 06:10 VBG pH 7.43 (7.36-7.41) H 08/10/23 09:42 VBG pCO2 38 mmHg (38-50) 08/10/23 09:42 VBG pO2 29 mmHg 08/10/23 09:42 VBG HCO3 25 mmol/L 08/10/23 09:42 VBG O2 Saturation < 60.0 % 08/10/23 09:42 VBG Base Excess 1.0 mEq/L 08/10/23 09:42 Sodium 142 mmol/L (136-145) 08/13/23 05:36 Potassium 4.2 mmol/L (3.5-5.1) 08/13/23 05:36 Chloride 109 mmol/L (98-107) H 08/13/23 05:36 Carbon Dioxide 24 mmol/L (21-32) 08/13/23 05:36 Anion Gap 9 (3-11) 08/13/23 05:36 BUN 25 mg/dl (6-23) H 08/13/23 05:36 Creatinine 1.03 mg/dl (0.6-1.4) 08/13/23 05:36 Est Cr Clr Drug Dosing 56.2 ml/min 08/13/23 05:36 Est GFR ( Amer) 78.0 ml/min 08/13/23 05:36 Est GFR (Non-Af Amer) 67.3 ml/min 08/13/23 05:36 BUN/Creatinine Ratio 24.3 (10-20) H 08/13/23 05:36 Glucose 156 mg/dl (70-99(Fasting)) H 08/13/23 05:36 Lactate 1.6 mmol/L (0.4-2.0) 08/10/23 09:42 Calcium 8.8 mg/dl (8.6-10.3) 08/13/23 05:36 Phosphorus 2.0 mg/dl (2.5-4.9) L 08/10/23 11:50 Magnesium 2.1 mg/dl (1.7-2.4) 08/10/23 11:50 Total Bilirubin 0.3 mg/dl (0.2-1.0) 08/11/23 06:10 Direct Bilirubin 0.3 mg/dl (0-0.2) H 08/10/23 09:30 AST 45 U/L (13-39) H 08/11/23 06:10 ALT 43 U/L (7-52) 08/11/23 06:10 Alkaline Phosphatase 306 U/L (34-104) H 08/11/23 06:10 Troponin I High Sens 31.2 pg/ml (0-20) H 08/10/23 15:17 Total Protein 5.7 gm/dl (6.0-8.3) L 08/11/23 06:10 Albumin 3.1 gm/dl (3.4-5.0) L 08/11/23 06:10 Globulin 2.6 gm/dl (2.5-4.0) 08/11/23 06:10 Albumin/Globulin Ratio 1.2 (0.9-2) 08/11/23 06:10 Vitamin B12 802 pg/ml (180-914) 08/11/23 06:10 Procalcitonin 0.60 ng/ml (0-0.5) H 08/10/23 09:30 Urine Color Yellow 08/10/23 14:22 Urine Appearance Clear (Clear) 08/10/23 14:22 Urine pH 6.0 (4.5-7.5) 08/10/23 14:22 Ur Specific [place] 1.017 (1.000-1.030) 08/10/23 14:22 Urine Protein 1+ (Negative) H 08/10/23 14:22 Urine Glucose (UA) Negative (Negative) 08/10/23 14:22 Urine Ketones 2+ (Negative) H 08/10/23 14:22 Urine Blood Negative (Negative) 08/10/23 14:22 Urine Nitrite Negative (Negative) 08/10/23 14: Urine Bilirubin Negative (Negative) 08/10/23 14:22 Urine Urobilinogen Negative (Negative) 08/10/23 14:22 Ur Leukocyte Esterase Negative (Negative) 08/10/23 14:22 Urine WBC (Auto) 1-5 /hpf (0-5) 08/10/23 14:22 Urine RBC (Auto) 0-4 /hpf (0-4) 08/10/23 14:22 U Hyaline Cast (Auto) 1-5 /lpf (0-5) 08/10/23 14:22 U Epithel Cells (Auto) 10-20 /lpf (0-5) H 08/10/23 14:22 Urine Bacteria (Auto) Negative (Negative) 08/10/23 14:22 Nasal Screen MRSA (PCR) Negative (Negative) 08/12/23 11:47 Adenovirus (PCR) Not Detected (NotDetected) 08/10/23 09:57 B. pertussis DNA (PCR) Not Detected (NotDetected) 08/10/23 09:57 B.parapertussis DNA PCR Not Detected (NotDetected) 08/10/23 09:57 C. pneumoniae DNA (PCR) Not Detected (NotDetected) 08/10/23 09:57 Coronavirus OC43 (PCR) Not Detected (NotDetected) 08/10/23 09:57 Coronavirus HKU1 (PCR) Not Detected (NotDetected) 08/10/23 09:57 Coronavirus 229E (PCR) Not Detected (NotDetected) 08/10/23 09:57 SARS-CoV-2 (PCR) Not Detected (NotDetected) 08/10/23 09:57 Coronavirus NL63 (PCR) Not Detected (NotDetected) 08/10/23 09:57 Human Metapneumovir PCR Not Detected (NotDetected) 08/10/23 09:57 Influenza Type A (PCR) Not Detected (NotDetected) 08/10/23 09:57 Influenza Type B (PCR) Not Detected (NotDetected) 08/10/23 09:57 M. pneumoniae (PCR) Not Detected (NotDetected) 08/10/23 09:57 Parainfluenza 1 (PCR) Not Detected (NotDetected) 08/10/23 09:57 Parainfluenza 2 (PCR) Not Detected (NotDetected) 08/10/23 09:57 Parainfluenza 3 (PCR) Not Detected (NotDetected) 08/10/23 09:57 Parainfluenza 4 (PCR) Not Detected (NotDetected) 08/10/23 09:57 RSV (PCR) Not Detected (NotDetected) 08/10/23 09:57 Entero/Rhino (PCR) DETECTED (NotDetected) A* 08/10/23 09:57 Impressions Liver Ultrasound 08/11/23 12:55 US liver CLINICAL HISTORY: Elevated liver enzymes. COMPARISON STUDY: CT of the abdomen and pelvis June 27, 2019. FINDINGS: No hepatic lesions are identified. Caliber of the common bile duct is at the upper limits of normal, measuring 7 mm. Gallbladder is mildly distended. There are no gallstones. Small amount of sludge within the gallbladder is noted. No sonographic Griffith sign was elicited. Pancreatic body is normal. Head and tail are obscured. There is no right hydronephrosis. Moderate right renal co rtical thinning is incidentally noted. IMPRESSION: 1. No gallstones or biliary ductal dilatation. Small amount of sludge within the gallbladder. Mildly distended gallbladder. No sonographic evidence for acute cholecystitis. 2. Partially obscured pancreas. ACT 112: Negative or not required by law. Electronically signed by: Duglas Page M.D. 08/12/2023 7:12 AM Chest X-Ray 08/12/23 11:25 XR chest 1V portable CLINICAL HISTORY: Increasing oxygen requirement. COMPARISON STUDY: Chest CT March 12, 2015. Chest radiograph August 10, 2023. FINDINGS: There is no pneumothorax or pleural effusion. Cardiomegaly is unchanged. Bibasilar opacities have progressed. There is underlying emphysema. No evidence for pulmonary edema. Postoperative findings within the spine and right lower neck are incidentally noted. Calcified granuloma within the right upper lobe is incidentally noted. IMPRESSION: 1. Progression of bilateral lower lung airspace opacities suggestive of pneumonia. Radiographic follow-up to ensure resolution is recommended. 2. Emphysema. ACT 112: Negative or not required by law. Electronically signed by: Duglas Page M.D. 08/12/2023 12:18 PM
--- NOTE | 2023-08-13 13:44 | Cardiology Progress Note ---
Date of Service August 13, 2023 Assessment & Plan (1) Atrial fibrillation with rapid ventricular response: (2) Sepsis due to pneumonia: (3) Rhinovirus infection: Plan 83-year-old male with a past medical history of coronary artery disease and chronic stable angina pectoris presents with a week of progressive respiratory symptoms and is positive for enterovirus/rhinovirus with possible superimposed bacterial pneumonia. New onset atrial fibrillation first observed on telemetry 08/10/2023. Heart rate improved with oral metoprolol and intravenous diltiazem infusion. Echocardiogram performed 08/11/2023 revealed inferior and posterior hypokinesis LVEF 55 to 60%, wall motion abnormalities unchanged compared to previous outpatient study dating back to 2014 Titrate metoprolol to 25 mg 3 times daily. Wean diltiazem infusion as tolerated to maintain heart rate less than 110 bpm. Anticipate heart rate will improve as respiratory status improves from viral respiratory tract infection with possible superimposed bacterial pneumonia. Transition from subcutaneous Lovenox to Eliquis when able. Continue aspirin given history of coronary artery disease. Admission and Anticipated Discharge Date Admission Date: August 10, 2023 Subjective Patient seen examined the bedside. Hard of hearing. Denies chest pain or shortness of breath. Telemetry reveals atrial fibrillation in the 80s. Diltiazem infusion currently at 10 mg/h. Review of Systems Review of Systems: All systems reviewed & are unremarkable except as noted in Subjective Physical Exam Constitutional: + ill appearing; no acute distress Respiratory: no respiratory distress Auscultation: + rhonchi; no rales and no wheezes Cardiovascular: Rate/Rhythm: + irregularly irregular Heart Sounds: normal S1 and normal S2; no murmur Vessels: no JVD Extremities: no edema Gastrointestinal (Abdomen): Inspection/Auscultation: normal bowel sounds; abdomen not distended Percussion/Palpation: abdomen soft; abdomen nontender, no guarding and abdomen not rigid Neurologic: CN's II-XI intact bilaterally and moves all extremities; no focal motor deficits Results & Data Vital Signs (Past 12 Hours) Vital Signs Temp Pulse Resp BP Pulse Ox Pulse Ox O2 Del Method 08/13/23 09:00 90 08/13/23 07:00 High Flow Nasal Cannula 08/13/23 11:10 36.4 C L 97 H 20 116/55 L 94 Nasal Cannula 08/13/23 11:04 98 H 18 92 Nasal Cannula 08/13/23 09:17 102 H 133/69 08/13/23 07:35 105 H 20 92 Nasal Cannula 08/13/23 07:19 36.7 C 118 H 22 137/67 91 Nasal Cannula 08/13/23 02:25 36.5 C 78 18 122/74 91 High Flow Nasal Cannula O2 Del Method O2 Flow Rate O2 Flow Rate 08/13/23 09:00 High Flow Nasal Cannula 6 08/13/23 07:00 6 08/13/23 11:10 4 08/13/23 11:04 6 08/13/23 09:17 08/13/23 07:35 6 08/13/23 07:19 6 08/13/23 02:25 Laboratory Results CBC 08/13/23 Range/Units 05:36 WBC 9.36 (4.8-10.8) K/ul RBC 3.58 L (4.70-6.10) M/uL Hgb 11.0 L (14.0-18.0) g/dl Hct 33.0 L (42.0-52.0) % Plt Count 254 (130-400) K/uL Neut # (Auto) 8.24 H (1.40-6.50) K/uL Lymph # (Auto) 0.55 L (1.20-3.40) K/uL [place] # (Auto) 0.15 (0.11-0.59) K/uL Eos # (Auto) 0.00 (0.00-0.50) K/uL Baso # (Auto) 0.03 (0.00-0.20) K/uL Comprehensive Metabolic Panel 08/13/23 Range/Units 05:36 Sodium 142 (136-145) mmol/L Potassium 4.2 (3.5-5.1) mmol/L Chloride 109 H (98-107) mmol/L Carbon Dioxide 24 (21-32) mmol/L BUN 25 H (6-23) mg/dl Creatinine 1.03 (0.6-1.4) mg/dl Glucose 156 H (70-99(Fasting)) mg/dl Calcium 8.8 (8.6-10.3) mg/dl Intake and Output 08/12/23 08/13/23 08/13/23 22:59 06:59 14:59 Intake Total 324.833 / 1307.000 100 / 1307.000 169.833 / 169.833 Output Total 325 / 0 1025 / 0 500 / 500 Balance -0.167 / -743.000 -925 / -743.000 -330.167 / -330.167 Intake: IV 124.833 / 527.000 169.833 / 169.833 cefTRIAXone SODIUM 2,000 mg In 50 / 50 Dextrose 5 % Mini-B 50 ml @ 100 mls/hr IV Q24H [facility] Rx#: [id number] dilTIAZem HCL 125 mg In 124.833 / 222.000 119.833 / 119.833 Dextrose 5% 100 ml @ 10 MG/HR 10 mls/hr IV .[id number] [facility] Rx#: [id number] Oral 200 / 780 100 / 780 Output: Urine 325 / 0 1025 / 0 500 / 500 Other: Weight 80.5 kg Weight Measurement Method Built in [facility]
[2023-08-13] MEDS: BENZONATATE 100 MG CAPSULE PO PRN (20:21)
[2023-08-13] MEDS: ROSUVASTATIN CALCIUM 10 MG TAB PO SCH (20:21)
[2023-08-13] MEDS: CHOLECALCIFEROL 1,000 UNITS 25 MCG TAB PO SCH (20:22)
[2023-08-13] MEDS: ZINC SULFATE 220 MG CAPSULE PO SCH (20:22)
[2023-08-14] MEDS: methylPREDNISolone 40 MG in SYRINGE 0 ML IV SCH ×3 (04:05→20:18)
[2023-08-14] MEDS: dilTIAZem HCL 125 MG in DEXTROSE 5% 100 ML IV SCH (04:27)
[2023-08-14 06:43] LABS: Basophils # (auto) 0.05 K/uL (0.00-0.20); Basophils % (auto) 0.3 %; Hematocrit (blood only) 35.2 % (42.0-52.0); Hemoglobin 11.6 g/dl (14.0-18.0); Immature Granulocytes # (auto) 0.71 K/uL (0.01-0.20); Immature Granulocytes % (auto) 4.2 %; Lymphocytes # (auto) 0.86 K/uL (1.20-3.40); Lymphocytes % (auto) 5.1 %; Mean Corpuscular Hemoglobin 30.6 pg (25.0-34.0); Mean Corpuscular Volume 92.9 fL (80.0-100.0); Mean Platelet Volume 9.9 fL (9.4-12.4); Monocytes # (auto) 0.39 K/uL (0.11-0.59); Monocytes % (auto) 2.3 %; Neutrophils % (auto) 88.1 %; Platelet Count 348 K/uL (130-400); RDW Coefficient of Variation 12.1 % (11.5-14.5); RDW Standard Deviation 41.3 fL (36.4-46.3); Red Blood Count 3.79 M/uL (4.70-6.10); White Blood Count 17.01 K/ul (4.8-10.8)
[2023-08-14 06:54] LABS: BUN Creatinine Ratio 27.9 (10-20); Calcium 8.9 mg/dl (8.6-10.3); Creatinine Clr Calc Pharmacy 52.2 ml/min; Est GFR (African American) 71.3 ml/min; Est GFR (Non-African American) 61.5 ml/min; Potassium 4.2 mmol/L (3.5-5.1)
[2023-08-14] MEDS: LEVALBUTEROL 1.25 MG/3 ML NEB NEB SCH ×4 (07:21→19:27)
[2023-08-14] MEDS: FORMOTEROL 20 MCG/2 ML VIAL NEB SCH ×2 (07:21→19:23)
[2023-08-14] MEDS: IPRATROPIUM BROMIDE NEB SOLN 0.02% 2.5 ML VIAL INH SCH ×4 (07:21→19:27)
[2023-08-14] MEDS: BUDESONIDE 0.5 MG/2 ML VIAL (PULMICORT) NEB SCH ×2 (07:21→19:23)
[2023-08-14] MEDS: SODIUM CHLOR 7% 4 ML NEB NEB SCH ×2 (07:22→19:23)
[2023-08-14] MEDS: PANTOprazole 40 MG TAB PO SCH ×2 (08:55→20:19)
[2023-08-14] MEDS: METOPROLOL TARTRATE 25 MG TAB PO SCH ×3 (08:55→20:19)
[2023-08-14] MEDS: guaiFENesin 600 MG TABCR PO SCH ×2 (08:55→20:19)
[2023-08-14] MEDS: VIBEGRON 75 MG TAB PO SCH (08:56)
[2023-08-14] MEDS: ASPIRIN 81 MG ECTAB PO SCH (08:56)
[2023-08-14] MEDS: FOLIC ACID 1 MG TAB PO SCH (08:56)
[2023-08-14] MEDS: THIAMINE HCL 100 MG TAB PO SCH (08:56)
[2023-08-14] MEDS: TAMSULOSIN HCL 0.4 MG CAP PO SCH (08:56)
[2023-08-14] MEDS: cefTRIAXone SODIUM 2,000 MG in DEXTROSE 5 % MINI-B 50 ML IV SCH (09:04)
[2023-08-14] MEDS: ENOXAPARIN 80 MG/0.8 ML SYR SQ SCH ×2 (10:22→20:18)
[2023-08-14] MEDS: BENZONATATE 100 MG CAPSULE PO PRN (11:50)
[2023-08-14] MEDS: guaiFENesin/DEXTROM SYRUP 200MG/20MG 10ML UDC PO PRN ×2 (11:50→20:18)
[2023-08-14] MEDS ORDERED: GABAPENTIN 600 MG TAB PO SCH (12:00)
--- NOTE | 2023-08-14 13:49 | Hospitalist Progress Note ---
Date of Service August 14, 2023 Assessment & Plan (1) Sepsis due to pneumonia: (2) Hypertension: (3) CAD (coronary artery disease): (4) COPD (chronic obstructive pulmonary disease): Plan Mr. Ballesteros is an 83 year old male with a PMH that includes: COPD ( no supplemental O2 use), HTN, CAD, HLD, HLD and alcohol use; that presents to the ED with SOB and persistent productive cough and fevers, along with feeling weaker than usual that have been occurring over the past week. He went to outpatient appointment prior to admission and was hypoxic and advised to come to the ED. CXR indicates left sided PNA and he would meet sepsis criteria as he was initially tachycardic and tachypnic. Upon arrival, he received Solumedrol, 1 LNSB, and Cefepime. Leukocytosis; 13.30, lactate normal 1.6, Initial Troponin 33.1; suspect ischemic demand rather than ACS. Sepsis POA Pneumonia: Rhino virus infection Acute hypoxic respiratory failure Presentation febrile with Tmax of 38.5 C. Requiring 4-6 L of oxygen CXR personally reviewed: Mild interstitial coarsening of the lung bases, left greater than right has progressed from prior. Repeat CXR on August 12: increase in bilateral infiltrates at bases Leukocytosis present Lactate normal 1.6 VBG reviewed; compensated Procalcitonin 0.60 Biofire positive for rhinovirus Sputum culturelight normal ghada MRSA negative Continue on ceftriaxone .; plan to treat for 7 days. Patient completed 3 days of azithromycin Supplemental oxygen as needed; wean down as tolerated to keep saturation around 92% A-fib with RVR Demand ischemia On the night of August 10, patient went into the A-fib with RVR EKG personally reviewed; atrial fibrillation with RVR; ventricular rate of 151 High sensitive troponin elevated to 31 Echocardiogram shows severely hypokinetic inferior and posterior burleson. EF of 55 to 60% Continue on Cardizem drip as per cardiology. Also on metoprolol On Lovenox for anticoagulation. Plan to switch over to Eliquis at discharge Suspected COPD exacerbation chronic stable On budesonide and formoterol nebs. [id number] DuoNebs On methylprednisolone; plan to treat for 5 days. Plan to switch over to prednisone at discharge HTN: chronic stable Takes Metoprolol and Amlodipine; continue HLD: Chronic stable takes Rosuvastatin; continue denies muscle cramps Last Lipid panel 07/01/23: LDL 40, HDL 56, TG 151 CAD: Chronic Stable 2010: Stent to JONY Takes Baby ASA; continue CKD: Chronic stable Avoid nephrotoxic agent. Alcohol use: chronic stable Reports drinking three beers per day and a shot of whiskey when he is not feeling well. Takes Thiamine and Folic Acid; continue Add AWSS scale for Ativan PRN Not tremulous on examination GERD: chronic stable Takes omeprazole; continue Disposition: PCP: Dr. Pabon Code Status: Full Code VTE Prophylaxis: Lovenox SQ Dispocontinues to be hospitalized due to acute hypoxic respiratory failure secondary to bilateral pneumonia, A-fib with RVR requiring Cardizem drip and closer monitoring. Time spent evaluating patient, direct bedside care, chart review, placing orders, interpretation of diagnostic studies, discussion with consultants, patient, and family members, as well as other required patient management activities is 60 minutes Please note the above document was generated using voice recognition software. It may contain grammatical, syntax or spelling errors. Any formal questions or concerns about the content, text or information contained within the body of this dictation should be directly addressed to the provider for clarification Admission and Anticipated Discharge Date Admission Date: August 10, 2023 Subjective Patient seen and examined at bedside. He reports that his breathing is better compared to yesterday. Oxygen requirement weaning down to 2 L by nasal cannula Review of Systems Review of Systems: All systems reviewed & are unremarkable except as noted in Subjective Physical Exam Physical Exam: Constitutional: Alert orient x3; not in distress. Respiratory: Occasional crackles heard in bilateral lower bases. Cardiovascular: Irregular, no murmur, no edema Vessels: no JVD or carotid bruit Chest: normal inspection of chest Abdomen: normal bowel sounds, soft, nontender, no hepatosplenomegaly Musculoskeletal: no cyanosis or clubbing, extremities motor strength 5/5 Skin: no rashes, warm and dry normal turgor Neurologic: PERRL, EOMI, accommodation nl, no face palsy, no dysarthria CN's II- XI intact bilaterally and moves all extremities Psychiatric: A+Ox3, euthymic affect Results & Data Results & Data Vital Signs (Past 12 Hours) Vital Signs Temp Pulse Pulse Resp BP Pulse Ox Pulse Ox 08/14/23 11:25 36.2 C L 102 H 22 117/60 93 08/14/23 10:43 84 16 95 08/14/23 09:36 90 08/14/23 09:26 08/14/23 09:00 94 08/14/23 07:22 90 20 94 08/14/23 07:08 36.3 C L 94 H 19 127/75 92 08/14/23 02:42 36.4 C L 75 16 137/72 95 O2 Del Method O2 Del Method O2 Flow Rate O2 Flow Rate 08/14/23 11:25 Nasal Cannula 2 08/14/23 10:43 Nasal Cannula 2 08/14/23 09:36 08/14/23 09:26 High Flow Nasal Cannula 4 08/14/23 09:00 High Flow Nasal Cannula 4 08/14/23 07:22 Nasal Cannula 4 08/14/23 07:08 Nasal Cannula 4 08/14/23 02:42 High Flow Nasal Cannula Laboratory Results Laboratory Results WBC 17.01 K/ul (4.8-10.8) H 08/14/23 05:43 RBC 3.79 M/uL (4.70-6.10) L 08/14/23 05:43 Hgb 11.6 g/dl (14.0-18.0) L 08/14/23 05:43 Hct 35.2 % (42.0-52.0) L 08/14/23 05:43 MCV 92.9 fL (80.0-100.0) 08/14/23 05:43 MCH 30.6 pg (25.0-34.0) 08/14/23 05:43 MCHC 33.0 g/dL (32.0-36.0) 08/14/23 05:43 RDW Std Deviation 41.3 fL (36.4-46.3) 08/14/23 05:43 RDW Coeff of Hiral 12.1 % (11.5-14.5) 08/14/23 05:43 Plt Count 348 K/uL (130-400) 08/14/23 05:43 MPV 9.9 fL (9.4-12.4) 08/14/23 05:43 Immature Gran % (Auto) 4.2 % 08/14/23 05:43 Neut % (Auto) 88.1 % 08/14/23 05:43 Lymph % (Auto) 5.1 % 08/14/23 05:43 [place] % (Auto) 2.3 % 08/14/23 05:43 Eos % (Auto) 0.0 % 08/14/23 05:43 Baso % (Auto) 0.3 % 08/14/23 05:43 Neut # (Auto) 15.00 K/uL (1.40-6.50) H 08/14/23 05:43 Lymph # (Auto) 0.86 K/uL (1.20-3.40) L 08/14/23 05:43 [place] # (Auto) 0.39 K/uL (0.11-0.59) 08/14/23 05:43 Eos # (Auto) 0.00 K/uL (0.00-0.50) 08/14/23 05:43 Baso # (Auto) 0.05 K/uL (0.00-0.20) 08/14/23 05:43 Immature Gran # (Auto) 0.71 K/uL (0.01-0.20) H 08/14/23 05:43 PT 11.7 Seconds (9.0-12.0) 08/10/23 09:30 INR 1.1 (0.9-1.1) 08/10/23 09:30 APTT 29.7 Seconds (21.0-31.0) 08/11/23 06:10 PTT Ratio 1.1 08/11/23 06:10 VBG pH 7.43 (7.36-7.41) H 08/10/23 09:42 VBG pCO2 38 mmHg (38-50) 08/10/23 09:42 VBG pO2 29 mmHg 08/10/23 09:42 VBG HCO3 25 mmol/L 08/10/23 09:42 VBG O2 Saturation < 60.0 % 08/10/23 09:42 VBG Base Excess 1.0 mEq/L 08/10/23 09:42 Sodium 141 mmol/L (136-145) 08/14/23 05:43 Potassium 4.2 mmol/L (3.5-5.1) 08/14/23 05:43 Chloride 107 mmol/L (98-107) 08/14/23 05:43 Carbon Dioxide 27 mmol/L (21-32) 08/14/23 05:43 Anion Gap 7 (3-11) 08/14/23 05:43 BUN 31 mg/dl (6-23) H 08/14/23 05:43 Creatinine 1.11 mg/dl (0.6-1.4) 08/14/23 05:43 Est Cr Clr Drug Dosing 52.2 ml/min 08/14/23 05:43 Est GFR ( Amer) 71.3 ml/min 08/14/23 05:43 Est GFR (Non-Af Amer) 61.5 ml/min 08/14/23 05:43 BUN/Creatinine Ratio 27.9 (10-20) H 08/14/23 05:43 Glucose 157 mg/dl (70-99(Fasting)) H 08/14/23 05:43 Lactate 1.6 mmol/L (0.4-2.0) 08/10/23 09:42 Calcium 8.9 mg/dl (8.6-10.3) 08/14/23 05:43 Phosphorus 2.0 mg/dl (2.5-4.9) L 08/10/23 11:50 Magnesium 2.1 mg/dl (1.7-2.4) 08/10/23 11:50 Total Bilirubin 0.3 mg/dl (0.2-1.0) 08/11/23 06:10 Direct Bilirubin 0.3 mg/dl (0-0.2) H 08/10/23 09:30 AST 45 U/L (13-39) H 08/11/23 06:10 ALT 43 U/L (7-52) 08/11/23 06:10 Alkaline Phosphatase 306 U/L (34-104) H 08/11/23 06:10 Troponin I High Sens 31.2 pg/ml (0-20) H 08/10/23 15:17 Total Protein 5.7 gm/dl (6.0-8.3) L 08/11/23 06:10 Albumin 3.1 gm/dl (3.4-5.0) L 08/11/23 06:10 Globulin 2.6 gm/dl (2.5-4.0) 08/11/23 06:10 Albumin/Globulin Ratio 1.2 (0.9-2) 08/11/23 06:10 Vitamin B12 802 pg/ml (180-914) 08/11/23 06:10 Procalcitonin 0.60 ng/ml (0-0.5) H 08/10/23 09:30 Urine Color Yellow 08/10/23 14:22 Urine Appearance Clear (Clear) 08/10/23 14:22 Urine pH 6.0 (4.5-7.5) 08/10/23 14:22 Ur Specific [place] 1.017 (1.000-1.030) 08/10/23 14:22 Urine Protein 1+ (Negative) H 08/10/23 14:22 Urine Glucose (UA) Negative (Negative) 08/10/23 14:22 Urine Ketones 2+ (Negative) H 08/10/23 14:22 Urine Blood Negative (Negative) 08/10/23 14: Urine Nitrite Negative (Negative) 08/10/23 14:22 Urine Bilirubin Negative (Negative) 08/10/23 14: Urine Urobilinogen Negative (Negative) 08/10/23 14:22 Ur Leukocyte Esterase Negative (Negative) 08/10/23 14:22 Urine WBC (Auto) 1-5 /hpf (0-5) 08/10/23 14:22 Urine RBC (Auto) 0-4 /hpf (0-4) 08/10/23 14:22 U Hyaline Cast (Auto) 1-5 /lpf (0-5) 08/10/23 14:22 U Epithel Cells (Auto) 10-20 /lpf (0-5) H 08/10/23 14:22 Urine Bacteria (Auto) Negative (Negative) 08/10/23 14:22 Nasal Screen MRSA (PCR) Negative (Negative) 08/12/23 11:47 Adenovirus (PCR) Not Detected (NotDetected) 08/10/23 09:57 B. pertussis DNA (PCR) Not Detected (NotDetected) 08/10/23 09:57 B.parapertussis DNA PCR Not Detected (NotDetected) 08/10/23 09:57 C. pneumoniae DNA (PCR) Not Detected (NotDetected) 08/10/23 09:57 Coronavirus OC43 (PCR) Not Detected (NotDetected) 08/10/23 09:57 Coronavirus HKU1 (PCR) Not Detected (NotDetected) 08/10/23 09:57 Coronavirus 229E (PCR) Not Detected (NotDetected) 08/10/23 09:57 SARS-CoV-2 (PCR) Not Detected (NotDetected) 08/10/23 09:57 Coronavirus NL63 (PCR) Not Detected (NotDetected) 08/10/23 09:57 Human Metapneumovir PCR Not Detected (NotDetected) 08/10/23 09:57 Influenza Type A (PCR) Not Detected (NotDetected) 08/10/23 09:57 Influenza Type B (PCR) Not Detected (NotDetected) 08/10/23 09:57 M. pneumoniae (PCR) Not Detected (NotDetected) 08/10/23 09:57 Parainfluenza 1 (PCR) Not Detected (NotDetected) 08/10/23 09:57 Parainfluenza 2 (PCR) Not Detected (NotDetected) 08/10/23 09:57 Parainfluenza 3 (PCR) Not Detected (NotDetected) 08/10/23 09:57 Parainfluenza 4 (PCR) Not Detected (NotDetected) 08/10/23 09:57 RSV (PCR) Not Detected (NotDetected) 08/10/23 09:57 Entero/Rhino (PCR) DETECTED (NotDetected) A* 08/10/23 09:57 Impressions Liver Ultrasound 08/11/23 12:55 US liver CLINICAL HISTORY: Elevated liver enzymes. COMPARISON STUDY: CT of the abdomen and pelvis June 27, 2019. FINDINGS: No hepatic lesions are identified. Caliber of the common bile duct is at the upper limits of normal, measuring 7 mm. Gallbladder is mildly distended. There are no gallstones. Small amount of sludge within the gallbladder is noted. No sonographic Griffith sign was elicited. Pancreatic body is normal. Head and tail are obscured. There is no right hydronephrosis. Moderate right renal cortical thinning is incidentally noted. IMPRESSION: 1. No gallstones or biliary ductal dilatation. Small amount of sludge within the gallbladder. Mildly distended gallbladder. No sonographic evidence for acute cholecystitis. 2. Partially obscured pancreas. ACT 112: Negative or not required by law. Electronically signed by: Duglas Page M.D. 08/12/2023 7:12 AM Chest X-Ray 08/12/23 11:25 XR chest 1V portable CLINICAL HISTORY: Increasing oxygen requirement. COMPARISON STUDY: Chest CT March 12, 2015. Chest radiograph August 10, 2023. FINDINGS: There is no pneumothorax or pleural effusion. Cardiomegaly is unchanged. Bibasilar opacities have progressed. There is underlying emphysema. No evidence for pulmonary edema. Postoperative findings within the spine and right lower neck are incidentally noted. Calcified granuloma within the right upper lobe is incidentally noted. IMPRESSION: 1. Progression of bilateral lower lung airspace opacities suggestive of pneumonia. Radiographic follow-up to ensure resolution is recommended. 2. Emphysema. ACT 112: Negative or not required by law. Electronically signed by: Duglas Page M.D. 08/12/2023 12:18 PM
--- NOTE | 2023-08-14 14:28 | Cardiology Progress Note ---
Date of Service August 14, 2023 Assessment & Plan (1) Atrial fibrillation with rapid ventricular response: (2) Sepsis due to pneumonia: (3) Rhinovirus infection: Plan 83-year-old male with a past medical history of coronary artery disease and chronic stable angina pectoris presents with a week of progressive respiratory symptoms and is positive for enterovirus/rhinovirus with possible superimposed bacterial pneumonia. New onset atrial fibrillation first observed on telemetry 08/10/2023. Metoprolol titrated to 25mg TID. IV diltiazem discontinued. Transition from subcutaneous Lovenox to Eliquis if no invasive procedures pending at this time. Continue aspirin given history of coronary artery disease Echocardiogram performed 08/11/2023 revealed inferior and posterior hypokinesis LVEF 55 to 60%, wall motion abnormalities unchanged compared to previous outpatient study dating back to 2013 Admission and Anticipated Discharge Date Admission Date: August 10, 2023 Subjective Patient seen and examined. Feeling better today. SOB/cough improved. Denies chest pain or palpitations. No orthopnea, PND or edema. Diltiazem infusion discontinued. Telemetry reveals AF 80-90. Review of Systems Review of Systems: All systems reviewed & are unremarkable except as noted in Subjective Physical Exam Constitutional: + ill appearing; no acute distress Respiratory: no respiratory distress Auscultation: + rhonchi; no rales and no wheezes Cardiovascular: Rate/Rhythm: + irregularly irregular Heart Sounds: normal S1 and normal S2; no murmur Vessels: no JVD Extremities: no edema Gastrointestinal (Abdomen): Inspection/Auscultation: normal bowel sounds; abdomen not distended Percussion/Palpation: abdomen soft; abdomen nontender, no guarding and abdomen not rigid Neurologic: CN's II-XI intact bilaterally and moves all extremities; no focal motor deficits Results & Data Vital Signs (Past 12 Hours) Vital Signs Temp Pulse Pulse Resp BP Pulse Ox Pulse Ox 08/14/23 11:25 36.2 C L 102 H 22 117/60 93 08/14/23 10:43 84 16 95 08/14/23 09:36 90 08/14/23 09:26 08/14/23 09:00 94 08/14/23 07:22 90 20 94 08/14/23 07:08 36.3 C L 94 H 19 127/75 92 08/14/23 02:42 36.4 C L 75 16 137/72 95 O2 Del Method O2 Del Method O2 Flow Rate O2 Flow Rate 08/14/23 11:25 Nasal Cannula 2 08/14/23 10:43 Nasal Cannula 2 08/14/23 09:36 08/14/23 09:26 High Flow Nasal Cannula 4 08/14/23 09:00 High Flow Nasal Cannula 4 08/14/23 07:22 Nasal Cannula 4 08/14/23 07:08 Nasal Cannula 4 08/14/23 02:42 High Flow Nasal Cannula Laboratory Results CBC 08/14/23 Range/Units 05:43 WBC 17.01 H (4.8-10.8) K/ul RBC 3.79 L (4.70-6.10) M/uL Hgb 11.6 L (14.0-18.0) g/dl Hct 35.2 L (42.0-52.0) % Plt Count 348 (130-400) K/uL Neut # (Auto) 15.00 H (1.40-6.50) K/uL Lymph # (Auto) 0.86 L (1.20-3.40) K/uL [place] # (Auto) 0.39 (0.11-0.59) K/uL Eos # (Auto) 0.00 (0.00-0.50) K/uL Baso # (Auto) 0.05 (0.00-0.20) K/uL Comprehensive Metabolic Panel 08/14/23 Range/Units 05:43 Sodium 141 (136-145) mmol/L Potassium 4.2 (3.5-5.1) mmol/L Chloride 107 (98-107) mmol/L Carbon Dioxide 27 (21-32) mmol/L BUN 31 H (6-23) mg/dl Creatinine 1.11 (0.6-1.4) mg/dl Glucose 157 H (70-99(Fasting)) mg/dl Calcium 8.9 (8.6-10.3) mg/dl Intake and Output 08/13/23 08/14/23 08/14/23 22:59 06:59 14:59 Intake Total 1047.333 / 1621.249 404.083 / 1621.249 300 / 300 Output Total 200 / 1950 1250 / 1950 Balance 847.333 / -328.751 -845.917 / -328.751 300 / 300 Intake: IV 117.333 / 291.249 4.083 / 291.249 50 / 50 cefTRIAXone SODIUM 2,000 mg In 50 / 50 Dextrose 5 % Mini-B 50 ml @ 100 mls/hr IV Q24H [facility] Rx#: [id number] dilTIAZem HCL 125 mg In 117.333 / 241.249 4.083 / 241.249 Dextrose 5% 100 ml @ 0 MG/HR IV .Q0M [facility]HMA Rx#:[id number] Oral 930 / 1330 400 / 1330 250 / 250 Output: Urine 200 / 1950 1250 / 1950 Other: Weight 80.6 kg Weight Measurement Method Built in [facility]
[2023-08-14] MEDS: ZINC SULFATE 220 MG CAPSULE PO SCH (20:19)
[2023-08-14] MEDS: ROSUVASTATIN CALCIUM 10 MG TAB PO SCH (20:19)
[2023-08-14] MEDS: CHOLECALCIFEROL 1,000 UNITS 25 MCG TAB PO SCH (20:19)
[2023-08-15] MEDS: methylPREDNISolone 40 MG in SYRINGE 0 ML IV SCH ×2 (03:56→11:02)
[2023-08-15 06:33] LABS: Basophils # (auto) 0.03 K/uL (0.00-0.20); Basophils % (auto) 0.2 %; Hematocrit (blood only) 35.3 % (42.0-52.0); Hemoglobin 11.5 g/dl (14.0-18.0); Immature Granulocytes # (auto) 0.53 K/uL (0.01-0.20); Immature Granulocytes % (auto) 4.1 %; Lymphocytes # (auto) 0.54 K/uL (1.20-3.40); Lymphocytes % (auto) 4.2 %; Mean Corpuscular Hemoglobin 30.6 pg (25.0-34.0); Mean Corpuscular Hgb Conc 32.6 g/dL (32.0-36.0); Mean Corpuscular Volume 93.9 fL (80.0-100.0); Mean Platelet Volume 9.7 fL (9.4-12.4); Monocytes % (auto) 2.3 %; Neutrophils # (auto) 11.47 K/uL (1.40-6.50); Neutrophils % (auto) 89.2 %; Platelet Count 307 K/uL (130-400); RDW Coefficient of Variation 12.2 % (11.5-14.5); RDW Standard Deviation 42.1 fL (36.4-46.3); Red Blood Count 3.76 M/uL (4.70-6.10); White Blood Count 12.87 K/ul (4.8-10.8)
[2023-08-15 07:02] LABS: BUN Creatinine Ratio 29.2 (10-20); Calcium 8.6 mg/dl (8.6-10.3); Creatinine Clr Calc Pharmacy 48.3 ml/min; Est GFR (African American) 64.9 ml/min; Potassium 4.3 mmol/L (3.5-5.1)
[2023-08-15] MEDS: SODIUM CHLOR 7% 4 ML NEB NEB SCH ×2 (07:14→19:19)
[2023-08-15] MEDS: IPRATROPIUM BROMIDE NEB SOLN 0.02% 2.5 ML VIAL INH SCH ×4 (07:24→19:19)
[2023-08-15] MEDS: FORMOTEROL 20 MCG/2 ML VIAL NEB SCH ×2 (07:24→19:19)
[2023-08-15] MEDS: BUDESONIDE 0.5 MG/2 ML VIAL (PULMICORT) NEB SCH ×2 (07:24→19:19)
[2023-08-15] MEDS: LEVALBUTEROL 1.25 MG/3 ML NEB NEB SCH ×4 (07:25→19:19)
--- NOTE | 2023-08-15 07:47 | XRay Report ---
XR chest 1V portable HISTORY: Shortness of breath. FOllow up on b/l infiltrates COMPARISON: Chest 08/12/2023. FINDINGS: No pneumothorax. The heart remains mildly enlarged. Patchy bibasilar airspace opacities are again noted. This has improved on the right. No evidence for pulmonary edema. Suspect a trace left p leural effusion. Surgical clips within the right neck base. Cervical spinal fusion hardware again not ed. Emphysema. IMPRESSION: Patchy bibasilar airspace opacities again noted. This has slightly improved on the right. ACT 112: Negative or not required by law. Electronically signed by: Rufino Craig M.D. 08/15/2023 7:46 AM
[2023-08-15] MEDS: THIAMINE HCL 100 MG TAB PO SCH (08:47)
[2023-08-15] MEDS: TAMSULOSIN HCL 0.4 MG CAP PO SCH (08:47)
[2023-08-15] MEDS: VIBEGRON 75 MG TAB PO SCH (08:48)
[2023-08-15] MEDS: guaiFENesin 600 MG TABCR PO SCH (08:48)
[2023-08-15] MEDS: METOPROLOL TARTRATE 25 MG TAB PO SCH (08:48)
[2023-08-15] MEDS: FOLIC ACID 1 MG TAB PO SCH (08:48)
[2023-08-15] MEDS: ASPIRIN 81 MG ECTAB PO SCH (08:48)
[2023-08-15] MEDS: PANTOprazole 40 MG TAB PO SCH ×2 (08:48→21:12)
[2023-08-15] MEDS: cefTRIAXone SODIUM 2,000 MG in DEXTROSE 5 % MINI-B 50 ML IV SCH (11:00)
[2023-08-15] MEDS: ENOXAPARIN 80 MG/0.8 ML SYR SQ SCH (11:00)
[2023-08-15] MEDS ORDERED: METOPROLOL TARTRATE 25 MG TAB PO STA (11:42)
--- NOTE | 2023-08-15 11:45 | Cardiology Progress Note ---
Date of Service August 15, 2023 Assessment & Plan (1) Atrial fibrillation with rapid ventricular response: (2) Sepsis due to pneumonia: (3) Rhinovirus infection: Plan 83-year-old male with a past medical history of coronary artery disease and chronic stable angina pectoris presents with a week of progressive respiratory symptoms and is positive for enterovirus/rhinovirus with possible superimposed bacterial pneumonia. New onset atrial fibrillation first observed on telemetry 08/10/2023. Recommend titration of metoprolol to 50 mg twice daily. Transition from subcutaneous Lovenox to Eliquis if no invasive procedures pending at this time. Continue aspirin given history of coronary artery disease Echocardiogram performed 08/11/2023 revealed inferior and posterior hypokinesis LVEF 55 to 60%, wall motion abnormalities unchanged compared to previous outpatient study dating back to 2013 Admission and Anticipated Discharge Date Admission Date: August 10, 2023 Subjective Patient seen examined the bedside. Elevated heart rates up into the 160s-170s with ambulation. Heart rate borderline controlled at rest. Tolerating metoprolol. Respiratory status improved. Review of Systems Review of Systems: All systems reviewed & are unremarkable except as noted in Subjective Physical Exam Constitutional: + ill appearing; no acute distress Respiratory: no respiratory distress Auscultation: + rhonchi; no rales and no wheezes Cardiovascular: Rate/Rhythm: + irregularly irregular Heart Sounds: normal S1 and normal S2; no murmur Vessels: no JVD Extremities: no edema Gastrointestinal (Abdomen): Inspection/Auscultation: normal bowel sounds; abdomen not distended Percussion/Palpation: abdomen soft; abdomen nontender, no guarding and abdomen not rigid Neurologic: CN's II-XI intact bilaterally and moves all extremities; no focal motor deficits Results & Data Vital Signs (Past 12 Hours) Vital Signs Temp Pulse Pulse Pulse Pulse Pulse Pulse 08/15/23 11:19 36.2 C L 08/15/23 11:08 08/15/23 09:23 112 H 118 H 115 H 118 H 108 H 08/15/23 07:52 08/15/23 07:52 96 H 08/15/23 07:14 08/15/23 07:11 36.5 C 08/15/23 03:00 36.6 C Pulse Pulse Pulse Resp Resp Resp Resp 08/15/23 11:19 100 H 20 08/15/23 11:08 88 16 08/15/23 09:23 82 80 26 H 26 H 26 H 08/15/23 07:52 08/15/23 07:52 08/15/23 07:14 90 18 08/15/23 07:11 90 20 08/15/23 03:00 99 H 20 Resp Resp Resp Resp BP Pulse Ox Pulse Ox 08/15/23 11:19 113/59 L 93 08/15/23 11:08 93 08/15/23 09:23 26 H 22 18 20 82 L 08/15/23 07:52 08/15/23 07:52 08/15/23 07:14 90 08/15/23 07:11 143/74 H 90 08/15/23 03:00 122/68 92 Pulse Ox Pulse Ox Pulse Ox Pulse Ox Pulse Ox Pulse Ox O2 Del Method 08/15/23 11:19 Nasal Cannula 08/15/23 11:08 Nasal Cannula 08/15/23 09:23 84 L 84 L 86 L 90 90 86 L 08/15/23 07:52 Nasal Cannula 08/15/23 07:52 08/15/23 07:14 Nasal Cannula 08/15/23 07:11 Nasal Cannula 08/15/23 03:00 Nasal Cannula O2 Flow Rate O2 Flow Rate O2 Flow Rate O2 Flow Rate O2 Flow Rate O2 Flow Rate O2 Flow Rate 08/15/23 11:19 1 08/15/23 11:08 1 08/15/23 09:23 1 2 3 4 6 1 08/15/23 07:52 1 08/15/23 07:52 08/15/23 07:14 1 08/15/23 07:11 1 08/15/23 03:00 1 Laboratory Results CBC 08/15/23 Range/Units 06:04 WBC 12.87 H (4.8-10.8) K/ul RBC 3.76 L (4.70-6.10) M/uL Hgb 11.5 L (14.0-18.0) g/dl Hct 35.3 L (42.0-52.0) % Plt Count 307 (130-400) K/uL Neut # (Auto) 11.47 H (1.40-6.50) K/uL Lymph # (Auto) 0.54 L (1.20-3.40) K/uL [place] # (Auto) 0.30 (0.11-0.59) K/uL Eos # (Auto) 0.00 (0.00-0.50) K/uL Baso # (Auto) 0.03 (0.00-0.20) K/uL Comprehensive Metabolic Panel 08/15/23 Range/Units 06:04 Sodium 141 (136-145) mmol/L Potassium 4.3 (3.5-5.1) mmol/L Chloride 109 H (98-107) mmol/L Carbon Dioxide 27 (21-32) mmol/L BUN 35 H (6-23) mg/dl Creatinine 1.20 (0.6-1.4) mg/dl Glucose 153 H (70-99(Fasting)) mg/dl Calcium 8.6 (8.6-10.3) mg/dl Intake and Output 08/14/23 08/15/23 08/15/23 22:59 06:59 14:59 Intake Total 450 / 1150 400 / 1150 50 / 50 Balance 450 / 1150 400 / 1150 50 / 50 Intake: IV 0 / 50 50 / 50 cefTRIAXone SODIUM 2,000 mg In 50 / 50 Dextrose 5 % Mini-B 50 ml @ 100 mls/hr IV Q24H [facility] Rx#: [id number] dilTIAZem HCL 125 mg In 0 / 0 Dextrose 5% 100 ml @ 0 MG/HR IV .Q0M [facility]MA Rx#:[id number] Oral 450 / 1100 400 / 1100 Other: Weight 80.7 kg Weight Measurement Method Built in [facility]
--- NOTE | 2023-08-15 14:10 | Hospitalist Progress Note ---
Date of Service August 15, 2023 Assessment & Plan (1) Sepsis due to pneumonia: (2) Hypertension: (3) CAD (coronary artery disease): (4) COPD (chronic obstructive pulmonary disease): Plan Mr. Ballesteros is an 83 year old male with a PMH that includes: COPD ( no supplemental O2 use), HTN, CAD, HLD, HLD and alcohol use; that presents to the ED with SOB and persistent productive cough and fevers, along with feeling weaker than usual that have been occurring over the past week. He went to outpatient appointment prior to admission and was hypoxic and advised to come to the ED. CXR indicates left sided PNA and he would meet sepsis criteria as he was initially tachycardic and tachypnic. Upon arrival, he received Solumedrol, 1 LNSB, and Cefepime. Leukocytosis; 13.30, lactate normal 1.6, Initial Troponin 33.1; suspect ischemic demand rather than ACS. Sepsis POA Pneumonia: Rhino virus infection Acute hypoxic respiratory failure Presentation febrile with Tmax of 38.5 C. Requiring 4-6 L of oxygen CXR personally reviewed: Mild interstitial coarsening of the lung bases, left greater than right has progressed from prior. Repeat CXR on August 12: increase in bilateral infiltrates at bases Leukocytosis present Lactate normal 1.6 VBG reviewed; compensated Procalcitonin 0.60 Biofire positive for rhinovirus Sputum culturelight normal ghada MRSA negative Continue on ceftriaxone .; plan to treat for 7 days. Patient completed 3 days of azithromycin Supplemental oxygen as needed; wean down as tolerated to keep saturation around 92% A-fib with RVR Demand ischemia On the night of August 10, patient went into the A-fib with RVR EKG personally reviewed; atrial fibrillation with RVR; ventricular rate of 151 High sensitive troponin elevated to 31 Echocardiogram shows severely hypokinetic inferior and posterior burleson. EF of 55 to 60% Was initially on Cardizem drip which was weaned off. Currently on metoprolol 50 mg tartrate twice a day Was started on Lovenox for anticoagulation; switched over to Eliquis. Eliquis cost is 133.99 for 30-day supply; will need coupon at discharge Suspected COPD exacerbation chronic stable On budesonide and formoterol nebs. Kexvu-afm-rbxrh DuoNebs Started on IV methylprednisolone; switched over to oral prednisone HTN: chronic stable Takes Metoprolol and Amlodipine; continue HLD: Chronic stable takes Rosuvastatin; continue denies muscle cramps Last Lipid panel 07/01/23: LDL 40, HDL 56, TG 151 CAD: Chronic Stable 2010: Stent to JONY Takes Baby ASA; continue CKD: Chronic stable Avoid nephrotoxic agent. Alcohol use: chronic stable Reports drinking three beers per day and a shot of whiskey when he is not feeling well. Takes Thiamine and Folic Acid; continue Add AWSS scale for Ativan PRN Not tremulous on examination GERD: chronic stable Takes omeprazole; continue Disposition: PCP: Dr. Pabon Code Status: Full Code VTE Prophylaxis: Lovenox SQ Dispocontinues to be hospitalized due to acute hypoxic respiratory failure secondary to bilateral pneumonia, A-fib with RVR requiring closer monitoring. Time spent evaluating patient, direct bedside care, chart review, placing orders, interpretation of diagnostic studies, discussion with consultants, patient, and family members, as well as other required patient management activities is 60 minutes Please note the above document was generated using voice recognition software. It may contain grammatical, syntax or spelling errors. Any formal questions or concerns about the content, text or information contained within the body of this dictation should be directly addressed to the provider for clarification Admission and Anticipated Discharge Date Admission Date: August 10, 2023 Subjective Patient seen and examined at bedside. Patient increasingly became short of breath on exertion requiring escalation of supplemental oxygen to 6 L He is requiring 1 L of oxygen at baseline. Heart rate increased to 120s on exertion Review of Systems Review of Systems: All systems reviewed & are unremarkable except as noted in Subjective Physical Exam Physical Exam: Constitutional: Alert orient x3; not in distress. Respiratory: Occasional crackles heard in bilateral lower bases. Cardiovascular: Irregular, no murmur, no edema Vessels: no JVD or carotid bruit Chest: normal inspection of chest Abdomen: normal bowel sounds, soft, nontender, no hepatosplenomegaly Musculoskeletal: no cyanosis or clubbing, extremities motor strength 5/5 Skin: no rashes, warm and dry normal turgor Neurologic: PERRL, EOMI, accommodation nl, no face palsy, no dysarthria CN's II- XI intact bilaterally and moves all extremities Psychiatric: A+Ox3, euthymic affect Results & Data Results & Data Vital Signs (Past 12 Hours) Vital Signs Temp Pulse Pulse Pulse Pulse Pulse Pulse 10/30/23 11:19 36.2 C L 08/15/23 11:08 08/15/23 09:23 112 H 118 H 115 H 118 H 108 H 08/15/23 07:52 08/15/23 07:52 96 H 08/15/23 07:14 08/15/23 07:11 36.5 C 08/15/23 03:00 36.6 C Pulse Pulse Pulse Resp Resp Resp Resp 08/15/23 11:19 100 H 20 08/15/23 11:08 88 16 08/15/23 09:23 82 80 26 H 26 H 26 H 08/15/23 07:52 08/15/23 07:52 08/15/23 07:14 90 18 08/15/23 07:11 90 20 08/15/23 03:00 99 H 20 Resp Resp Resp Resp BP Pulse Ox Pulse Ox 08/15/23 11:19 113/59 L 93 08/15/23 11:08 93 08/15/23 09:23 26 H 22 18 20 82 L 08/15/23 07:52 08/15/23 07:52 08/15/23 07:14 90 08/15/23 07:11 143/74 H 90 08/15/23 03:00 122/68 92 Pulse Ox Pulse Ox Pulse Ox Pulse Ox Pulse Ox Pulse Ox O2 Del Method 08/15/23 11:19 Nasal Cannula 08/15/23 11:08 Nasal Cannula 08/15/23 09:23 84 L 84 L 86 L 90 90 86 L 08/15/23 07:52 Nasal Cannula 08/15/23 07:52 08/15/23 07:14 Nasal Cannula 08/15/23 07:11 Nasal Cannula 08/15/23 03:00 Nasal Cannula O2 Flow Rate O2 Flow Rate O2 Flow Rate O2 Flow Rate O2 Flow Rate O2 Flow Rate O2 Flow Rate 08/15/23 11:19 1 08/15/23 11:08 1 08/15/23 09:23 1 2 3 4 6 1 08/15/23 07:52 1 08/15/23 07:52 08/15/23 07:14 1 08/15/23 07:11 1 08/15/23 03:00 1 Laboratory Results Laboratory Results WBC 12.87 K/ul (4.8-10.8) H 08/15/23 06:04 RBC 3.76 M/uL (4.70-6.10) L 08/15/23 06:04 Hgb 11.5 g/dl (14.0-18.0) L 08/15/23 06:04 Hct 35.3 % (42.0-52.0) L 08/15/23 06:04 MCV 93.9 fL (80.0-100.0) 08/15/23 06:04 MCH 30.6 pg (25.0-34.0) 08/15/23 06:04 MCHC 32.6 g/dL (32.0-36.0) 08/15/23 06:04 RDW Std Deviation 42.1 fL (36.4-46.3) 08/15/23 06:04 RDW Coeff of Hiral 12.2 % (11.5-14.5) 08/15/23 06:04 Plt Count 307 K/uL (130-400) 08/15/23 06:04 MPV 9.7 fL (9.4-12.4) 08/15/23 06:04 Immature Gran % (Auto) 4.1 % 08/15/23 06:04 Neut % (Auto) 89.2 % 08/15/23 06:04 Lymph % (Auto) 4.2 % 08/15/23 06:04 [place] % (Auto) 2.3 % 08/15/23 06:04 Eos % (Auto) 0.0 % 08/15/23 06:04 Baso % (Auto) 0.2 % 08/15/23 06:04 Neut # (Auto) 11.47 K/uL (1.40-6.50) H 08/15/23 06:04 Lymph # (Auto) 0.54 K/uL (1.20-3.40) L 08/15/23 06:04 [place] # (Auto) 0.30 K/uL (0.11-0.59) 08/15/23 06:04 Eos # (Auto) 0.00 K/uL (0.00-0.50) 08/15/23 06:04 Baso # (Auto) 0.03 K/uL (0.00-0.20) 08/15/23 06:04 Immature Gran # (Auto) 0.53 K/uL (0.01-0.20) H 08/15/23 06:04 PT 11.7 Seconds (9.0-12.0) 08/10/23 09:30 INR 1.1 (0.9-1.1) 08/10/23 09:30 APTT 29.7 Seconds (21.0-31.0) 08/11/23 06:10 PTT Ratio 1.1 08/11/23 06:10 VBG pH 7.43 (7.36-7.41) H 08/10/23 09:42 VBG pCO2 38 mmHg (38-50) 08/10/23 09:42 VBG pO2 29 mmHg 08/10/23 09:42 VBG HCO3 25 mmol/L 08/10/23 09:42 VBG O2 Saturation < 60.0 % 08/10/23 09:42 VBG Base Excess 1.0 mEq/L 08/10/23 09:42 Sodium 141 mmol/L (136-145) 08/15/23 06:04 Potassium 4.3 mmol/L (3.5-5.1) 08/15/23 06:04 Chloride 109 mmol/L (98-107) H 08/15/23 06:04 Carbon Dioxide 27 mmol/L (21-32) 08/15/23 06:04 Anion Gap 5 (3-11) 08/15/23 06:04 BUN 35 mg/dl (6-23) H 08/15/23 06:04 Creatinine 1.20 mg/dl (0.6-1.4) 08/15/23 06:04 Est Cr Clr Drug Dosing 48.3 ml/min 08/15/23 06:04 Est GFR ( Amer) 64.9 ml/min 08/15/23 06:04 Est GFR (Non-Af Amer) 56.0 ml/min 08/15/23 06:04 BUN/Creatinine Ratio 29.2 (10-20) H 08/15/23 06:04 Glucose 153 mg/dl (70-99(Fasting)) H 08/15/23 06:04 Lactate 1.6 mmol/L (0.4-2.0) 08/10/23 09:42 Calcium 8.6 mg/dl (8.6-10.3) 08/15/23 06:04 Phosphorus 2.0 mg/dl (2.5-4.9) L 08/10/23 11:50 Magnesium 2.1 mg/dl (1.7-2.4) 08/10/23 11:50 Total Bilirubin 0.3 mg/dl (0.2-1.0) 08/11/23 06:10 Direct Bilirubin 0.3 mg/dl (0-0.2) H 08/10/23 09:30 AST 45 U/L (13-39) H 08/11/23 06:10 ALT 43 U/L (7-52) 08/11/23 06:10 Alkaline Phosphatase 306 U/L (34-104) H 08/11/23 06:10 Troponin I High Sens 31.2 pg/ml (0-20) H 08/10/23 15:17 Total Protein 5.7 gm/dl (6.0-8.3) L 08/11/23 06:10 Albumin 3.1 gm/dl (3.4-5.0) L 08/11/23 06:10 Globulin 2.6 gm/dl (2.5-4.0) 08/11/23 06:10 Albumin/Globulin Ratio 1.2 (0.9-2) 08/11/23 06:10 Vitamin B12 802 pg/ml (180-914) 08/11/23 06:10 Procalcitonin 0.60 ng/ml (0-0.5) H 08/10/23 09:30 Urine Color Yellow 08/10/23 14:22 Urine Appearance Clear (Clear) 08/10/23 14:22 Urine pH 6.0 (4.5-7.5) 08/10/23 14:22 Ur Specific [place] 1.017 (1.000-1.030) 08/10/23 14:22 Urine Protein 1+ (Negative) H 08/10/23 14:22 Urine Glucose (UA) Negative (Negative) 08/10/23 14:22 Urine Ketones 2+ (Negative) H 08/10/23 14:22 Urine Blood Negative (Negative) 08/10/23 14:22 Urine Nitrite Negative (Negative) 08/10/23 14:22 Urine Bilirubin Negative (Negative) 08/10/23 14:22 Urine Urobilinogen Negative (Negative) 10/25/23 14:22 Ur Leukocyte Esterase Negative (Negative) 08/10/23 14:22 Urine WBC (Auto) 1-5 /hpf (0-5) 08/10/23 14:22 Urine RBC (Auto) 0-4 /hpf (0-4) 08/10/23 14:22 U Hyaline Cast (Auto) 1-5 /lpf (0-5) 08/10/23 14:22 U Epithel Cells (Auto) 10-20 /lpf (0-5) H 08/10/23 14:22 Urine Bacteria (Auto) Negative (Negative) 08/10/23 14:22 Nasal Screen MRSA (PCR) Negative (Negative) 08/12/23 11:47 Adenovirus (PCR) Not Detected (NotDetected) 08/10/23 09:57 B. pertussis DNA (PCR) Not Detected (NotDetected) 08/10/23 09:57 B.parapertussis DNA PCR Not Detected (NotDetected) 08/10/23 09:57 C. pneumoniae DNA (PCR) Not Detected (NotDetected) 08/10/23 09:57 Coronavirus OC43 (PCR) Not Detected (NotDetected) 08/10/23 09:57 Coronavirus HKU1 (PCR) Not Detected (NotDetected) 08/10/23 09:57 Coronavirus 229E (PCR) Not Detected (NotDetected) 08/10/23 09:57 SARS-CoV-2 (PCR) Not Detected (NotDetected) 08/10/23 09:57 Coronavirus NL63 (PCR) Not Detected (NotDetected) 08/10/23 09:57 Human Metapneumovir PCR Not Detected (NotDetected) 08/10/23 09:57 Influenza Type A (PCR) Not Detected (NotDetected) 08/10/23 09:57 Influenza Type B (PCR) Not Detected (NotDetected) 08/10/23 09:57 M. pneumoniae (PCR) Not Detected (NotDetected) 08/10/23 09:57 Parainfluenza 1 (PCR) Not Detected (NotDetected) 08/10/23 09:57 Parainfluenza 2 (PCR) Not Detected (NotDetected) 08/10/23 09:57 Parainfluenza 3 (PCR) Not Detected (NotDetected) 08/10/23 09:57 Parainfluenza 4 (PCR) Not Detected (NotDetected) 08/10/23 09:57 RSV (PCR) Not Detected (NotDetected) 08/10/23 09:57 Entero/Rhino (PCR) DETECTED (NotDetected) A* 08/10/23 09:57 Impressions Liver Ultrasound 08/11/23 12:55 US liver CLINICAL HISTORY: Elevated liver enzymes. COMPARISON STUDY: CT of the abdomen and pelvis June 27, 2019. FINDINGS: No hepatic lesions are identified. Caliber of the common bile duct is at the upper limits of normal, measuring 7 mm. Gallbladder is mildly distended. There are no gallstones. Small amount of sludge within the gallbladder is noted. No sonographic Griffith sign was elicited. Pancreatic body is normal. Head and tail are obscured. There is no right hydronephrosis. Moderate right renal cortical thinning is incidentally noted. IMPRESSION: 1. No gallstones or biliary ductal dilatation. Small amount of sludge within the gallbladder. Mildly distended gallbladder. No sonographic evidence for acute cholecystitis. 2. Partially obscured pancreas. ACT 112: Negative or not required by law. Electronically signed by: Duglas Page M.D. 08/12/2023 7:12 AM Chest X-Ray 08/15/23 08:00 XR chest 1V portable HISTORY: Shortness of breath. FOllow up on b/l infiltrates COMPARISON: Chest 08/12/2023. FINDINGS: No pneumothorax. The heart remains mildly enlarged. Patchy bibasilar airspace opacities are again noted. This has improved on the right. No evidence for pulmonary edema. Suspect a trace left pleural effusion. Surgical clips within the right neck base. Cervical spinal fusion hardware again noted. Emphysema. IMPRESSION: Patchy bibasilar airspace opacities again noted. This has slightly improved on the right. ACT 112: Negative or not required by law. Electronically signed by: Rufino Craig M.D. 08/15/2023 7:46 AM
[2023-08-15] MEDS: METOPROLOL TARTRATE 50 MG TAB PO SCH (21:11)
[2023-08-15] MEDS: ROSUVASTATIN CALCIUM 10 MG TAB PO SCH (21:12)
[2023-08-15] MEDS: ZINC SULFATE 220 MG CAPSULE PO SCH (21:12)
[2023-08-15] MEDS: CHOLECALCIFEROL 1,000 UNITS 25 MCG TAB PO SCH (21:12)
[2023-08-15] MEDS: APIXABAN 5 MG TABLET PO SCH (21:12)
[2023-08-16 05:15] LABS: Basophils # (auto) 0.01 K/uL (0.00-0.20); Basophils % (auto) 0.1 %; Hematocrit (blood only) 34.5 % (42.0-52.0); Hemoglobin 11.4 g/dl (14.0-18.0); Immature Granulocytes # (auto) 0.47 K/uL (0.01-0.20); Immature Granulocytes % (auto) 4.3 %; Lymphocytes # (auto) 0.71 K/uL (1.20-3.40); Lymphocytes % (auto) 6.5 %; Mean Corpuscular Hemoglobin 30.8 pg (25.0-34.0); Mean Corpuscular Volume 93.2 fL (80.0-100.0); Mean Platelet Volume 9.6 fL (9.4-12.4); Monocytes % (auto) 5.5 %; Neutrophils # (auto) 9.12 K/uL (1.40-6.50); Neutrophils % (auto) 83.6 %; Platelet Count 307 K/uL (130-400); RDW Coefficient of Variation 12.3 % (11.5-14.5); RDW Standard Deviation 41.9 fL (36.4-46.3); White Blood Count 10.91 K/ul (4.8-10.8)
[2023-08-16 05:29] LABS: BUN Creatinine Ratio 32.8 (10-20); Calcium 8.6 mg/dl (8.6-10.3); Est GFR (African American) 63.6 ml/min; Est GFR (Non-African American) 54.9 ml/min; Potassium 4.2 mmol/L (3.5-5.1)
--- NOTE | 2023-08-16 07:34 | Cardiology Progress Note ---
Date of Service August 16, 2023 Assessment & Plan (1) Atrial fibrillation with rapid ventricular response: (2) Sepsis due to pneumonia: (3) Rhinovirus infection: Plan IMPRESSION: 83-year-old male with a past medical history of coronary artery disease and chronic stable angina pectoris presents with a week of progressive respiratory symptoms and is positive for enterovirus/rhinovirus with possible superimposed bacterial pneumonia. New onset atrial fibrillation first observed on telemetry 08/10/2023. Rates borderline controlled. Echocardiogram performed 08/11/2023 revealed inferior and posterior hypokinesis LVEF 55 to 60%, wall motion abnormalities unchanged compared to previous outpatient study dating back to 2013 PLAN: Recommend titration of metoprolol tartrate to 75 mg twice daily. Continue Eliquis 5 mg BID for stroke prevention. Continue aspirin given history of coronary artery disease Case discussed with Dr. Desai-- will follow. Admission and Anticipated Discharge Date Admission Date: August 10, 2023 Supervising Physician Co-Signing Physician Notes Patient seen examined the bedside. Heart rate ranging 80 to low 100s. Denies palpitations. Respiratory status unchanged today. Notes continued cough without sputum production. No orthopnea, PND, or edema. PE:VSS. Heart: Irregular rhythm, borderline tachycardic. Lungs: Mild right- sided expiratory wheeze. No rhonchi or wheeze. Extremities: No edema. A/P: Agree with above [employer] history, physical exam, assessment and plan. Titrate metoprolol to 75 mg twice daily. Continue Eliquis. Outpatient cardiology follow-up in 2 to 4 weeks. Subjective 83-year-old male with a past medical history of coronary artery disease and chronic stable angina pectoris presents with a week of progressive respiratory symptoms and is positive for enterovirus/rhinovirus with possible superimposed bacterial pneumonia. New onset atrial fibrillation first observed on telemetry 08/10/2023. 08/14/2023: Tele: AFIB 80-90s Diltazem gtt discontinued. Metoprolol tartrate titrated to 25 mg TID. 08/15/2023: Heart rates remained elevated in the 160s to 170s with ambulation. Heart rates borderline controlled with rest. Echocardiogram performed 08/11/2023 revealed inferior and posterior hypokinesis LVEF 55 to 60%, wall motion abnormalities unchanged compared to previous outpatient study dating back to 2013 Metoprolol tartrate increased to 50 mg twice daily. Lovenox discontinued in favor of Eliquis 5 mg twice daily. Aspirin continued given history of coronary disease. 08/16/2023: Telemetry: AFIB 90-100s with PVCs Upon entrance into the room patient resting in bed. No acute concerns. Asymptomatic with AFIB. Heart rates remain borderline controlled, increases with activity. Continues to have a moist productive cough. Shortness of breath minimal. No orthopnea, PND, or lower extremity edema. Denies chest pain. No lightheadedness. Review of Systems Review of Systems: All systems reviewed & are unremarkable except as noted in HPI & below Physical Exam Constitutional: + ill appearing; no acute distress Eyes: PERRL, conjunctivae normal, anicteric sclerae Neck: normal visual inspection and trachea midline Respiratory: + cough (moist productive); no respiratory distress Auscultation: + rhonchi; no crackles, no rales and no wheezes Cardiovascular: Rate/Rhythm: + tachycardic and + irregularly irregular Heart Sounds: normal S1 and normal S2; no murmur Vessels: no JVD Extremities: no edema Gastrointestinal (Abdomen): normal bowel sounds, soft, nontender, no hepatosplenomegaly Inspection/Auscultation: normal bowel sounds; abdomen not distended Percussion/Palpation: abdomen soft; abdomen nontender, no guarding and abdomen not rigid Neurologic: PERRL, EOMI, accommodation nl, no face palsy, no dysarthria CN's II-XI intact bilaterally and moves all extremities; no focal motor deficits Psychiatric: A+Ox3, euthymic affect Results & Data Vital Signs (Past 12 Hours) Vital Signs Temp Pulse Pulse Resp BP Pulse Ox Pulse Ox 08/15/23 20:00 08/16/23 03:00 36.5 C 83 18 126/66 93 08/15/23 23:00 91 08/15/23 22:01 105 H 08/15/23 22:35 36.6 C 100 H 20 131/59 L 91 08/15/23 19:30 36.5 C 102 H 20 127/68 94 O2 Del Method O2 Del Method O2 Flow Rate O2 Flow Rate 08/15/23 20:00 Nasal Cannula 1 08/16/23 03:00 Nasal Cannula 1 08/15/23 23:00 Nasal Cannula 1 08/15/23 22:01 08/15/23 22:35 Nasal Cannula 1 08/15/23 19:30 Nasal Cannula 1 Laboratory Results CBC 08/16/23 Range/Units 04:54 WBC 10.91 H (4.8-10.8) K/ul RBC 3.70 L (4.70-6.10) M/uL Hgb 11.4 L (14.0-18.0) g/dl Hct 34.5 L (42.0-52.0) % Plt Count 307 (130-400) K/uL Neut # (Auto) 9.12 H (1.40-6.50) K/uL Lymph # (Auto) 0.71 L (1.20-3.40) K/uL [place] # (Auto) 0.60 H (0.11-0.59) K/uL Eos # (Auto) 0.00 (0.00-0.50) K/uL Baso # (Auto) 0.01 (0.00-0.20) K/uL Comprehensive Metabolic Panel 08/16/23 Range/Units 04:54 Sodium 144 (136-145) mmol/L Potassium 4.2 (3.5-5.1) mmol/L Chloride 110 H (98-107) mmol/L Carbon Dioxide 27 (21-32) mmol/L BUN 40 H (6-23) mg/dl Creatinine 1.22 (0.6-1.4) mg/dl Glucose 115 H (70-99(Fasting)) mg/dl Calcium 8.6 (8.6-10.3) mg/dl Intake and Output 08/15/23 08/16/23 08/16/23 22:59 06:59 14:59 Intake Total 100 / 950 200 / 950 Balance 100 / 950 200 / 950 Intake: Oral 100 / 900 200 / 900 Other: # Unmeasured Voids 2 Weight 82.5 kg Weight Measurement Method Built in [facility]
[2023-08-16] MEDS: FORMOTEROL 20 MCG/2 ML VIAL NEB SCH (07:48)
[2023-08-16] MEDS: BUDESONIDE 0.5 MG/2 ML VIAL (PULMICORT) NEB SCH (07:48)
[2023-08-16] MEDS: IPRATROPIUM BROMIDE NEB SOLN 0.02% 2.5 ML VIAL INH SCH ×2 (07:49→10:20)
[2023-08-16] MEDS: LEVALBUTEROL 1.25 MG/3 ML NEB NEB SCH ×2 (07:49→10:20)
[2023-08-16] MEDS: SODIUM CHLOR 7% 4 ML NEB NEB SCH (08:03)
[2023-08-16] MEDS ORDERED: predniSONE 20 MG TAB PO SCH (09:00)
[2023-08-16] MEDS: PANTOprazole 40 MG TAB PO SCH (09:06)
[2023-08-16] MEDS: METOPROLOL TARTRATE 50 MG TAB PO SCH (09:06)
[2023-08-16] MEDS: APIXABAN 5 MG TABLET PO SCH (09:06)
[2023-08-16] MEDS: FOLIC ACID 1 MG TAB PO SCH (09:07)
[2023-08-16] MEDS: TAMSULOSIN HCL 0.4 MG CAP PO SCH (09:07)
[2023-08-16] MEDS: THIAMINE HCL 100 MG TAB PO SCH (09:07)
[2023-08-16] MEDS: VIBEGRON 75 MG TAB PO SCH (09:07)
[2023-08-16] MEDS: ASPIRIN 81 MG ECTAB PO SCH (09:07)
[2023-08-16] MEDS: cefTRIAXone SODIUM 2,000 MG in DEXTROSE 5 % MINI-B 50 ML IV SCH (09:13)
[2023-08-16] MEDS ORDERED: METOPROLOL TARTRATE 25 MG TAB PO STA (09:34)
--- NOTE | 2023-08-16 13:57 | Discharge Summary ---
Date of Service August 16, 2023 Admission HPI Per Admitting Provider Mr. Ballesteros is an 83 year old male with a PMH that includes: COPD ( no supplemental O2 use), HTN, CAD, HLD, HLD and alcohol use; that presents to the ED with SOB and persistent productive cough and fevers, along with feeling weaker than usual that have been occurring over the past week. He went to [facility] this morning and was hypoxic and advised to come to the ED. CXR indicates left sided PNA and he would meet sepsis criteria as he was initially tachycardic and tachypnic. Upon arrival, he received Solumedrol, 1 LNSB, and Cefepime. Leukocytosis; 13.30, lactate normal 1.6, Initial Troponin 33.1; suspect ischemic demand rather than ACS. Pt denies tobacco use or recreational drug use. Reports drinking three beers per day and a shot of whiskey when he is not feeling well. 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 Pt denies DECKER, dizziness, chest pain, palpitations, abdominal pain, tenderness, recent falls or trauma. Pt lying on his left side upon examination and was not in any apparent distress. He was AAOx3 and able to answer questions appropriately. He did say that he was feeling 'wiped out'. Ultimately, 83 year old male with history of COPD presents with SOB and PNA, meeting sepsis criteria. Will treat with IV Ceftriaxone + Azithromycin and adjust based on sputum and blood culture results; Supportive treatment with O2 and goal to wean O2 prior to discharge with Mucinex, Tessalon Pearles, and flutter valve. Patient will be admitted for further evaluation and management. Please see A/P for further details. Admission Exam Per Admitting Provider General: Ill appearing man, in no distress Eyes: PERRL, conjunctivae normal, not pale, anicteric sclerae, EOM intact bilaterally ENMT: External ear and nose normal, oropharynx normal Respiratory: Normal respiratory effort, no respiratory distress, lungs clear to auscultation, no crackles. On nasal cannula Cardiovascular: Tachycardic, regular rhythm, S1 S2 Gastrointestinal (Abdomen): Abdomen is not distended, soft, non-tender to palpation, no guarding, no palpable hepatosplenomegaly, normal bowel sounds Musculoskeletal: No pedal edema Neurologic: Alert and oriented x 3, No focal weakness, sensation grossly intact Psychiatric: Euthymic affect Principal Diagnosis Pneumonia COPD exacerbation A-fib with RVR Discharge Exam Constitutional: Alert orient x3; not in distress. Respiratory: Occasional crackles heard in bilateral lower bases. No wheezes. Cardiovascular: Irregular, no murmur, no edema Vessels: no JVD or carotid bruit Chest: normal inspection of chest Abdomen: normal bowel sounds, soft, nontender, no hepatosplenomegaly Musculoskeletal: no cyanosis or clubbing, extremities motor strength 5/5 Skin: no rashes, warm and dry normal turgor Neurologic: PERRL, EOMI, accommodation nl, no face palsy, no dysarthria CN's II- XI intact bilaterally and moves all extremities Psychiatric: A+Ox3, euthymic affect Discharge Data Allergies Allergy/AdvReac Type Severity Reaction Status Date / Time tamsulosin AdvReac Verified 12/17/21 13:52 Consultations 08/10/23 10:41 ED Decision to Admit Stat 08/11/23 08:00 Consult Cardiology Routine Ordered Studies 08/11/23 12:55 US liver Routine Hospital Course (1) Sepsis due to pneumonia: (2) Hypertension: (3) CAD (coronary artery disease): (4) COPD (chronic obstructive pulmonary disease): Plan Mr. Ballesteros is an 83 year old male with a PMH that includes: COPD ( no supplemental O2 use), HTN, CAD, HLD, HLD and alcohol use; that presents to the ED with SOB and persistent productive cough and fevers, along with feeling weaker than usual that have been occurring over the past week. He went to outpatient appointment prior to admission and was hypoxic and advised to come to the ED. CXR indicates left sided PNA and he would meet sepsis criteria as he was initially tachycardic and tachypnic. Upon arrival, he received Solumedrol, 1 LNSB, and Cefepime. Leukocytosis; 13.30, lactate normal 1.6, Initial Troponin 33.1; suspect ischemic demand rather than ACS. Sepsis POA Pneumonia: Rhino virus infection Acute hypoxic respiratory failure Presentation febrile with Tmax of 38.5 C. Requiring 4-6 L of oxygen CXR personally reviewed: Mild interstitial coarsening of the lung bases, left greater than right has progressed from prior. Repeat CXR on August 12: increase in bilateral infiltrates at bases Leukocytosis present Lactate normal 1.6 VBG reviewed; compensated Procalcitonin 0.60 Biofire positive for rhinovirus Sputum culturelight normal ghada MRSA negative During the hospitalization, patient was treated with antibiotics with ceftriaxone and azithromycin. He was also treated with airway clearance therapy with DuoNebs, hypertonic saline and flutter valve. Patient reported improvement in symptoms throughout the hospitalization. Two-step oxygen evaluation was done; patient needed 1 L at rest and 6 L on exertion Patient was prescribed antibiotic and steroid to complete the antibiotic course. A-fib with RVR Demand ischemia On the night of August 10, patient went into the A-fib with RVR EKG personally reviewed; atrial fibrillation with RVR; ventricular rate of 151 High sensitive troponin elevated to 31 Echocardiogram shows severely hypokinetic inferior and posterior burleson. EF of 55 to 60% Was initially on Cardizem drip which was weaned off. Started on metoprolol Was started on Lovenox for anticoagulation; switched over to Eliquis at discharge. Eliquis cost is 133.99 for 30-day supply; will need coupon at discharge At discharge, patient was started on metoprolol 75 mg twice daily along with Eliquis. Patient to follow-up with cardiology in 4 to 6 weeks Please note the above document was generated using voice recognition software. It may contain grammatical, syntax or spelling errors. Any formal questions or concerns about the content, text or information contained within the body of this dictation should be directly addressed to the provider for clarification Total Time Total Time Spent Total Time Spent (In Minutes): 45 Total Time Includes: Examination of the Patient, Discharge Planning, Medication Reconciliation, Communication With Other Providers and Other Discharge Plan Discharge Items Patient Disposition: Home - Self-Care Reason For Visit: PNA Discharge Diagnosis: Pneumonia COPD exacerbation A-fib with RVR Condition on Discharge: Fair Activity: Resume your previous activity Non-emergency contact: Primary Care Provider Call non-emergency contact if: you have any medication questions and your symptoms worsen Follow-up/Referrals: oRbert Pabon MD [Primary Care Provider] - (Date & Time 08/22/2023 10:00 AM Provider La Sung CRNP Department [facility] ) Maddie Muñoz CRNP [Nurse Practitioner] - (Date & Time 08/23/2023 11:15 AM Provider NURSE ODOM [facility] Department Cardiac Studies, [facility] Date & Time 09/15/2023 3:00 PM Provider Maddie Muñoz CRNP Department Cardiology, [facility] ) Diet: Regular Addtl Attending Provider Instructions: You were admitted to the hospital for following reason: 1) Pneumonia and COPD exacerbation: You were treated with antibiotics, breathing treatment during the hospitalization. You are prescribed cefdinir (antibiotic) to be taken twice daily for 4 more days to complete the antibiotic course You were also prescribed prednisone 40 mg once a day for 3 days. Please wear oxygen at 1 L at rest and 6 L on exertion You will need repeat chest x-ray to be done as outpatient to follow-up on the re solution of the pneumonia. 2) atrial fibrillation with RVR: You were found to have irregular heart rate called atrial fibrillation during the hospitalization. To minimize risks of stroke, you are prescribed blood thinner (Eliquis) to be taken twice daily. Please use the coupon given to you when you warp picker the medication You were also prescribed metoprolol 75 mg to be taken twice daily to decrease your heart rate. Stop taking amlodipine and previous prescription of metoprolol 25 mg Pending Studies at Discharge: No Stand-Alone Forms: [facility], Smoking Cessation Medications and DC Order Prescriptions: New Eliquis 5 mg tablet 5 mg PO BID Qty: 60 0RF metoprolol tartrate 75 mg tablet 75 mg PO BID Qty: 60 0RF prednisone 20 mg Tablet 40 mg PO DAILY 3 Days Qty: 6 0RF cefdinir 300 mg capsule 300 mg PO BID 4 Days Qty: 8 0RF Continued ipratropium bromide 0.03 % spray,non-aerosol 1 spray INTNAS TID Qty: 30 3RF Rx Instructions: administer into each nostril Combivent Respimat 20-100 mcg/actuation mist 1 puff inhalation QID Qty: 3 0RF fluticasone propion-salmeterol [Advair Diskus] 250-50 mcg/dose blister with device 1 inh inhalation BID Qty: 60 5RF alfuzosin 10 mg tablet extended release 24 hr 10 mg PO DAILY Qty: 90 3RF Rx Instructions: administer after the same meal each day albuterol sulfate 2.5 mg /3 mL (0.083 %) solution for nebulization 2.5 mg inhalation QID Qty: 180 3RF omeprazole 20 mg capsule,delayed release(DR/EC) 40 mg PO BID Qty: 360 3RF Myrbetriq 50 mg tablet extended release 24 hr 50 mg PO DAILY Qty: 90 1RF rosuvastatin [Crestor] 10 mg tablet 10 mg PO HS Qty: 90 3RF nitroglycerin 0.4 mg tablet, sublingual 0.4 mg SL UD PRN (Reason: Chest Pain) Qty: 30 Patient Comments: Place 1 tablet under the tongue every 5 minutes for up to 3 doses as needed for chest pain. Call 911 if pain persists. thiamine HCl (vitamin B1) 100 mg tablet 100 mg PO QAM Qty: 30 folic acid 1 mg tablet 1 mg PO QAM Eye Drops 1 dose OPR BID Patient Comments: UNSURE OF NAME OF EYE DROPS zinc sulfate 220 mg Tablet 220 mg PO HS cholecalciferol (vitamin D3) [Vitamin D3] 25 mcg (1,000 unit) Tablet 1,000 mcg PO HS coQ10 (ubiquinol) 200 mg Capsule 200 mg PO QAM aspirin 81 mg tablet,delayed release (DR/EC) 81 mg PO DAILY Discontinued metoprolol tartrate 25 mg tablet 25 mg PO BID Qty: 180 3RF amlodipine 2.5 mg tablet 2.5 mg PO DAILY Discharge Orders: Discharge Order (Routine); Ordered 08/16/23 Ordered By: Silver Live Admission Data Admit Date/Time: 08/10/23 10:47 Attending Provider: Silver Live Admit Provider: Lisandra Stern I. Primary Care Provider: Robert Pabon Other Providers: Lisandra Stern I. ; Lester Olivera Other Interventions: Discharge Summary Assessment (RN) Last Done: 08/16/23 12:03
[2023-08-16] MEDS ORDERED: METOPROLOL TARTRATE 25 MG TAB PO SCH (21:00)
== END 2023-08-16 13:31 | disposition home or self-care (01) | DRG 871 ==
LOC: ED 09:16 → SUATTDRO 10:47 → EDINP 10:47 → 2W 08-11 10:14 → 4W 08-11 13:08